=== PATIENT | female | born 1945 | race Caucasian/White ===

== ENCOUNTER 2018-03-15 13:23 | Emergency (ER) | payer MEDICARE, BC ==
[2018-03-15 13:39] VITALS: RESP 16
[2018-03-15] MEDS ORDERED: SODIUM CHLORIDE 0.9% 500 ML IV STA (14:15)
[2018-03-15 15:02] LABS: Basophils # (A) 0.1 k/uL (0-0.2); Basophils % (A) 1 %; Eosinophils # (A) 0.2 k/uL (0-0.7); Eosinophils % (A) 1 %; HCT 46.9 % (34.0-46.0); Lymphocytes # (A) 1.3 k/uL (1.0-4.8); Lymphocytes % (A) 11 %; MCH 30.2 pg (25.0-35.0); MCHC 34.1 g/dL (31.0-37.0); MCV 88.7 fL (80.0-100.0); Mean Platelet Volume 7.6; Monocytes # (A) 0.5 k/uL (0-1.0); Monocytes % (A) 5 %; Neutrophils # (A) 9.8 k/uL (1.3-7.7); Neutrophils % (A) 81 %; Platelet Count 294 k/uL (150-450); RBC 5.29 m/uL (3.80-5.40); RDW 12.1 % (11.5-15.5); WBC 12.1 k/uL (3.8-10.6)
[2018-03-15 15:04] LABS: Appearance,Urine Clear (Clear); Bacteria,Urine Rare /hpf; Bilirubin,Urine Negative (Negative); Blood,Urine Small (Negative); Color,Urine Yellow; Glucose,Urine (UA) 2+ (Negative); Hyaline Casts,Urine 4 /lpf (0-2); Ketones,Urine Negative (Negative); Leukocyte Esterase,Urine Negative (Negative); Mucus,Urine Rare /hpf; Nitrite,Urine Negative (Negative); Protein,Urine 3+ (Negative); RBC,Urine 2 /hpf (0-5); Specific Gravity,Urine 1.037 (1.001-1.035); Squamous Epithelial Cell,Urine 1 /hpf (0-4); WBC,Urine 2 /hpf (0-5)
[2018-03-15 15:12] LABS: ALT 27 U/L (9-52); AST 46 U/L (14-36); Alkaline Phosphatase 49 U/L (38-126); Anion Gap 15 mmol/L; Blood Urea Nitrogen 17 mg/dL (7-17); Calcium 9.8 mg/dL (8.4-10.2); Carbon Dioxide 26 mmol/L (22-30); Chloride 88 mmol/L (98-107); Glucose 134 mg/dL (74-99); Magnesium 1.5 mg/dL (1.6-2.3); Phosphorus 3.8 mg/dL (2.5-4.5); Potassium 4.9 mmol/L (3.5-5.1); Sodium 129 mmol/L (137-145); Total Bilirubin 1.2 mg/dL (0.2-1.3)
[2018-03-15 15:21] LABS: Creatine Kinase 307 U/L (30-135)
[2018-03-15] MEDS ORDERED: MORPHINE SULFATE 4 MG/ML SYRINGE IVP STA (15:22)
[2018-03-15 15:34] LABS: Troponin I <0.012 ng/mL (0.000-0.034)
[2018-03-15 15:35] LABS: Creatine Kinase MB 4.1 ng/mL (0.0-2.4)
--- NOTE | 2018-03-15 15:37 | ED ---
General Adult HPI - General Chief complaint: Fall Stated complaint: Fall Time Seen by Provider: 03/15/18 13:29 Source: patient, RN notes reviewed, old records reviewed Mode of arrival: EMS Limitations: no limitations - History of Present Illness Initial comments: This is a 72-year-old female the ER for evaluation. Patient presented ER for evaluation status post fall. 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 No known or unsure loss of consciousness. Patient has mild facial pain, no other complaints - Related Data Home Medications Medication Instructions Recorded Confirmed Acetaminophen Tab [Tylenol Tab] 650 mg PO Q4H PRN 03/15/18 03/15/18 DULoxetine HCL [Cymbalta] 20 mg PO DAILY 03/15/18 03/15/18 Metoprolol Tartrate [Lopressor] 50 mg PO BID 03/15/18 03/15/18 Allergies Allergy/AdvReac Type Severity Reaction Status Date / Time dicyclomine [From Bentyl] Allergy Unknown Verified 03/15/18 13:47 grass pollen Allergy Unknown Verified 03/15/18 13:47 Iodinated Contrast- Oral and Allergy Unknown Verified 03/15/18 13:47 IV Dye mold Allergy Unknown Verified 03/15/18 13:47 oxycodone Allergy Unknown Verified 03/15/18 13:47 povidone-iodine Allergy Unknown Verified 03/15/18 13:47 [From Betadine] propoxyphene Allergy Unknown Verified 03/15/18 13:47 [From Darvocet-N] soap [From Betadine] Allergy Unknown Verified 03/15/18 13:47 Review of Systems ROS Statement: Those systems with pertinent positive or pertinent negative responses have been documented in the HPI. ROS Other: All systems not noted in ROS Statement are negative. Past Medical History Past Medical History: Fibromyalgia, Hypertension, Rheumatoid Arthritis (RA) Additional Past Medical History / Comment(s): GOUT History of Any Multi-Drug Resistant Organisms: None Reported Past Surgical History: Appendectomy, Section, Orthopedic Surgery, Tonsillectomy, Tubal Ligation Past Psychological History: Anxiety, Depression, Panic Disorder Smoking Status: Never smoker Past Alcohol Use History: Daily Past Drug Use History: None Reported General Exam Limitations: no limitations General appearance: alert, in no apparent distress Head exam: Present: normocephalic, normal inspection. Absent: atraumatic ( Nasal deformity) Eye exam: Present: normal appearance, PERRL, EOMI. Absent: scleral icterus, conjunctival injection, periorbital swelling ENT exam: Present: normal exam, mucous membranes moist Neck exam: Present: normal inspection. Absent: tenderness, meningismus, lymphadenopathy Respiratory exam: Present: normal lung sounds bilaterally. Absent: respiratory distress, wheezes, rales, rhonchi, stridor Cardiovascular Exam: Present: regular rate, normal rhythm, normal heart sounds. Absent: systolic murmur, diastolic murmur, rubs, gallop, clicks GI/Abdominal exam: Present: soft, normal bowel sounds. Absent: distended, tenderness, guarding, rebound, rigid Extremities exam: Present: normal inspection, full ROM, normal capillary refill. Absent: tenderness, pedal edema, joint swelling, calf tenderness Back exam: Present: normal inspection Neurological exam: Present: alert, oriented X3, CN II-XII intact Psychiatric exam: Present: normal affect, normal mood Skin exam: Present: warm, dry, intact, normal color. Absent: rash Course Vital Signs 03/15/18 03/15/18 13:31 16:35 Temperature 99.4 F Pulse Rate 66 74 Respiratory 16 16 Rate Blood Pressure 172/77 168/77 O2 Sat by Pulse 98 97 Oximetry - Reevaluation(s) Reevaluation #1: 03/15/18 15:36 Patient has pain control at this time EKG Findings - EKG Comments: EKG Findings:: EKG shows normal sinus rhythm rate of 63, [place] 138, QRS 84, QTc 437 Medical Decision Making - Medical Decision Making 72 female the ER status post mechanical fall, computed tomography scan is negative for fractures or injury, mildly low sodium, patient given fluid bolus here in the ER. Encouraged increased diet. can be discharged home - Lab Data Result diagrams: 03/15/18 14:43 03/15/18 14:43 Lab Results 03/15/18 03/15/18 03/15/18 Range/Units 14:43 14:43 14:43 WBC 12.1 H (3.8-10.6) k/uL RBC 5.29 (3.80-5.40) m/uL Hgb 16.0 (11.4-16.0) gm/dL Hct 46.9 H (34.0-46.0) % MCV 88.7 (80.0-100.0) fL MCH 30.2 (25.0-35.0) pg MCHC 34.1 (31.0-37.0) g/dL RDW 12.1 (11.5-15.5) % Plt Count 294 (150-450) k/uL Neutrophils % 81 % Lymphocytes % 11 % Monocytes % 5 % Eosinophils % 1 % Basophils % 1 % Neutrophils # 9.8 H (1.3-7.7) k/uL Lymphocytes # 1.3 (1.0-4.8) k/uL Monocytes # 0.5 (0-1.0) k/uL Eosinophils # 0.2 (0-0.7) k/uL Basophils # 0.1 (0-0.2) k/uL PT (9.0-12.0) sec INR (<1.2) APTT (22.0-30.0) sec Sodium 129 L (137-145) mmol/L Potassium 4.9 (3.5-5.1) mmol/L Chloride 88 L (98-107) mmol/L Carbon Dioxide 26 (22-30) mmol/L Anion Gap 15 mmol/L BUN 17 (7-17) mg/dL Creatinine 0.67 (0.52-1.04) mg/dL Est GFR (CKD-EPI)AfAm >90 (>60 ml/min/1.73 sqM) Est GFR (CKD-EPI)NonAf 89 (>60 ml/min/1.73 sqM) Glucose 134 H (74-99) mg/dL Calcium 9.8 (8.4-10.2) mg/dL Phosphorus 3.8 (2.5-4.5) mg/dL Magnesium 1.5 L (1.6-2.3) mg/dL Total Bilirubin 1.2 (0.2-1.3) mg/dL AST 46 H (14-36) U/L ALT 27 (9-52) U/L Alkaline Phosphatase 49 (38-126) U/L Total Creatine Kinase 307 H (30-135) U/L CK-MB (CK-2) 4.1 H* (0.0-2.4) ng/mL CK-MB (CK-2) Rel Index 1.3 Troponin I <0.012 (0.000-0.034) ng/mL Total Protein 8.0 (6.3-8.2) g/dL Albumin 5.0 (3.5-5.0) g/dL Urine Color Urine Appearance (Clear) Urine pH (5.0-8.0) Ur Specific [place] (1.001-1.035) Urine Protein (Negative) Urine Glucose (UA) (Negative) Urine Ketones (Negative) Urine Blood (Negative) Urine Nitrite (Negative) Urine Bilirubin (Negative) Urine Urobilinogen (<2.0) mg/dL Ur Leukocyte Esterase (Negative) Urine RBC (0-5) /hpf Urine WBC (0-5) /hpf Ur Squamous Epith Cells (0-4) /hpf Urine Bacteria (None) /hpf Hyaline Casts (0-2) /lpf Urine Mucus (None) /hpf 03/15/18 03/15/18 Range/Units 14:43 14:43 WBC (3.8-10.6) k/uL RBC (3.80-5.40) m/uL Hgb (11.4-16.0) gm/dL Hct (34.0-46.0) % MCV (80.0-100.0) fL MCH (25.0-35.0) pg MCHC (31.0-37.0) g/dL RDW (11.5-15.5) % Plt Count (150-450) k/uL Neutrophils % % Lymphocytes % % Monocytes % % Eosinophils % % Basophils % % Neutrophils # (1.3-7.7) k/uL Lymphocytes # (1.0-4.8) k/uL Monocytes # (0-1.0) k/uL Eosinophils # (0-0.7) k/uL Basophils # (0-0.2) k/uL PT 10.5 (9.0-12.0) sec INR 1.1 (<1.2) APTT 22.8 (22.0-30.0) sec Sodium (137-145) mmol/L Potassium (3.5-5.1) mmol/L Chloride (98-107) mmol/L Carbon Dioxide (22-30) mmol/L Anion Gap mmol/L BUN (7-17) mg/dL Creatinine (0.52-1.04) mg/dL Est GFR (CKD-EPI)AfAm (>60 ml/min/1.73 sqM) Est GFR (CKD-EPI)NonAf (>60 ml/min/1.73 sqM) Glucose (74-99) mg/dL Calcium (8.4-10.2) mg/dL Phosphorus (2.5-4.5) mg/dL Magnesium (1.6-2.3) mg/dL Total Bilirubin (0.2-1.3) mg/dL AST (14-36) U/L ALT (9-52) U/L Alkaline Phosphatase (38-126) U/L Total Creatine Kinase (30-135) U/L CK-MB (CK-2) (0.0-2.4) ng/mL CK-MB (CK-2) Rel Index Troponin I (0.000-0.034) ng/mL Total Protein (6.3-8.2) g/dL Albumin (3.5-5.0) g/dL Urine Color Yellow Urine Appearance Clear (Clear) Urine pH 6.0 (5.0-8.0) Ur Specific [place] 1.037 H (1.001-1.035) Urine Protein 3+ H (Negative) Urine Glucose (UA) 2+ H (Negative) Urine Ketones Negative (Negative) Urine Blood Small H (Negative) Urine Nitrite Negative (Negative) Urine Bilirubin Negative (Negative) Urine Urobilinogen 2.0 (<2.0) mg/dL Ur Leukocyte Esterase Negative (Negative) Urine RBC 2 (0-5) /hpf Urine WBC 2 (0-5) /hpf Ur Squamous Epith Cells 1 (0-4) /hpf Urine Bacteria Rare H (None) /hpf Hyaline Casts 4 H (0-2) /lpf Urine Mucus Rare H (None) /hpf - Radiology Data Radiology results: report reviewed (CT brain C-spine negative for acute disease) , image reviewed Disposition Clinical Impression: Fall, Head injuries Disposition: HOME SELF-CARE Condition: Good Instructions: Fall Prevention for Older Adults (ED) Is patient prescribed a controlled substance at d/c from ED?: No Referrals: Leobardo Heart MD [Primary Care Provider] - 1-2 days
--- NOTE | 2018-03-15 15:41 | CT ---
EXAMINATION TYPE: CT brain cspine wo con, CT facial bones wo con DATE OF EXAM: 03/15/2018 COMPARISON: NONE HISTORY: Fall, trauma injury with headache, facial pain, and neck pain. CT DLP: 1891 (accession [id number]), 543 (accession [id number]) mGycm. Automated Exposure Control for Dos e Reduction was Utilized. TECHNIQUE: CT scan of the head, patient bones, and cervical spine are all performed without contrast. FINDINGS: There is no acute intracranial hemorrhage or midline shift identified. There is ventricul ar and sulcal prominence consistent with diffuse cerebral atrophy. There is low-attenuation in the pe riventricular white matter. Hyperostosis frontalis is present. The calvarium is intact. Nasal bones and bridge are intact. Orbital floors and beard are intact. The globes are intact bilater ally. Intraconal fat is preserved bilaterally. The zygomatic arches are intact bilaterally. Temporoma ndibular joints are maintained. The pterygoid plates are intact. Visualized paranasal sinuses are neftali ar. Cervical spine is visualized in its entirety from C1 through upper thoracic levels and demonstrates s traightened alignment without evidence of acute fracture or dislocation. Prevertebral soft tissue ap pears within normal limits. The C1-C2 articulation is within normal limits on the coronal images. V ertebral body heights are maintained. There is moderate disc space narrowing and mild to moderate spu rring C5-C6 and C6-C7 level. Spinal canal is grossly preserved. Review of axial images shows multilev el uncovertebral facet degenerative changes, this contributes to moderate left and mild right-sided n eural foraminal narrowing C3-C4 level, moderate to advanced bilateral neural foraminal narrowing C4-C 5 level and mild to moderate left-sided neural foraminal narrowing C5-C6 level. There is 3.3 cm hypoe choic nodule lower pole right thyroid coronal image 20 that warrants follow-up. Lung apices are clear . IMPRESSION: 1. There is no acute fracture or dislocation evident in the cervical spine. Incidental 3.3 cm right t hyroid nodule. Thyroid ultrasound follow-up advised to further evaluate and characterize. This likely will need sampling if this is not known stable finding. 2. No acute intracranial hemorrhage or midline shift is seen. 3. No acute facial bone fracture or dislocation is evident.
[2018-03-15 15:49] LABS: INR 1.1 (<1.2); Partial Thromboplastin Time 22.8 sec (22.0-30.0); Prothrombin Time 10.5 sec (9.0-12.0)
--- NOTE | 2018-03-15 16:47 | XR ---
EXAMINATION TYPE: XR chest 2V DATE OF EXAM: 03/15/2018 COMPARISON: NONE HISTORY: Fall today with weakness. TECHNIQUE: Frontal and lateral views of the chest are obtained. FINDINGS: There is elevation and eventration anterior aspect right hemidiaphragm. There is no focal a ir space opacity, pleural effusion, or pneumothorax seen. The cardiac silhouette size is within norm al limits. Irregular sclerotic lesion left proximal humerus likely reflects bone infarct but is incom pletely imaged. IMPRESSION: No acute cardiopulmonary process.
[2018-03-15 17:34] VITALS: BP 189/83; PULSE 72; TEMP 99.1
== END 2018-03-15 18:30 | disposition home or self-care (01) ==
LOC: EC 13:23
DX: E87.1 Hypo-osmolality and hyponatremia (principal); S09.90XA Unspecified injury of head, initial encounter; J34.89 Other specified disorders of nose and nasal sinuses; I10 Essential (primary) hypertension; F32.9 Major depressive disorder, single episode, unspecified; F41.0 Panic disorder [episodic paroxysmal anxiety]; Z79.899 Other long term (current) drug therapy; Z88.5 Allergy status to narcotic agent; Z88.8 Allergy status to other drugs, medicaments and biological substances; Z91.041 Radiographic dye allergy status; Z91.048 Other nonmedicinal substance allergy status; V00.811A Fall from moving wheelchair (powered), initial encounter; Y93.89 Activity, other specified; Y92.009 Unspecified place in unspecified non-institutional (private) residence as the place of occurrence of the external cause
CPT/HCPCS: 36415; 93005; 80053; 82550; 82553; 83735; 84100; 84484; 85025; 85610; 85730; 81001; 71046; 72125; 70486; 70450; 99285; 96374; 96361 ×3; J2270

== ENCOUNTER 2020-02-07 10:55 | Emergency (ER) | payer MEDICARE, BC ==
[2020-02-07 11:00] LABS: Glucose,Whole Blood 143 mg/dL (75-99)
[2020-02-07] MEDS ORDERED: SODIUM CHLORIDE 0.9% 1,000 ML IV ONE (11:12)
--- NOTE | 2020-02-07 11:16 | ED ---
General Adult HPI - General Chief complaint: Altered Mental Status Stated complaint: Confusion Time Seen by Provider: 02/07/20 11:00 Source: EMS Mode of arrival: EMS Limitations: no limitations - History of Present Illness Initial comments: Dictation was produced using [employer] dictation software. please excuse any grammatical, word or spelling errors. This patient was cared for during a federal and state declared state of emergency secondary to Covid 19 Chief Complaint: 74-year-old female brought in by EMS for confusion History of Present Illness: 4-year-old female she is brought in for confusion. Patient states that over the last 48 hours she's been having difficulty concentrating. Patient states that she has with her cat yesterday morning and wanted to go and eat however she reports that she noted that she forgot how to d o it. She lives at home with her son. Her son was on called EMS. According to EMS patient was alert and oriented 4. Patient denies any numbness tingling or paresthesias to the extremities. She denies any weakness of the extremities. No constitutional symptoms. Denies any pain complaints. The ROS documented in this emergency department record has been reviewed and confirmed by me. Those systems with pertinent positive or negative responses have been documented in the HPI. All other systems are other negative and/or noncontributory. PHYSICAL EXAM: General Impression: Alert and oriented x4/4, not in acute distress HEENT: Normocephalic atraumatic, extra-ocular movements intact, pupils equal and reactive to light bilaterally, dry mucous membranes Cardiovascular: Heart regular rate and rhythm, S1&S2 audible, no murmurs, rubs or gallops Chest: Lungs clear to auscultation bilaterally, no rhonchi, no wheeze, no rales Abdomen: Bowel sounds present, abdomen soft, non-tender, non-distended, no organomegaly Musculoskeletal: Pulses present and equal in all extremities, no peripheral edema Motor: no focal deficits noted Neurological: CN II-XII grossly intact, no focal motor or sensory deficits noted, no ataxia, NIH of 0, no facial asymmetry Skin: Intact with no visualized rashes Psych: Normal affect and mood ED course: 74-year-old female presents with confusion. Patient does not have any symptoms or findings to suggest cerebrovascular accident. Her NIH is 0. As upon arrival are within acceptable limits. Patient does not have any localizing symptoms. Physical examination is benign except for some signs of dehydration. Medications reviewed. Patient is on TCA, beta ben and antidepressant Laboratory evaluation obtained. Mild leukocytosis of 11.9. Cardiac panel unremarkable. Metabolic panel is negative. Cardiac enzymes negative. No hyperammonia. Urinalysis is negative. Rapid urine drug screen is positive for TCAs which is part of her usual medications. Chest x-ray is nonacute. Computed tomography scan of the brain shows evidence of remote lacunar infarct in the right frontal lobe, ventricular atrophy and interval left posterior parietal infarct but has not acute but progressed since previous. At this point no concern for TIA or CVA given that patient has NIH of 0. Patient's given an aspirin. This is likely secondary to chronic findings seen on computed tomography scan of the brain. Nonetheless given CT findings patient should be on CVA prophylactic medications. An attempt was made to contact patient's primary care physician Dr. Heart over he was unavailable. Discussed patient case with Dr. Toledo was road conductor for the group he agrees with discharge. He recommend patient be started on 80 mg Lipitor daily and aspirin 325 daily. Ema chapman underwent ambulatory trial and has no findings of significant ataxia. Son finally at bedside and reports that patient does appear improved. He is agreeable to disposition. Patient is instructed to follow-up with her PCP Dr. Heart on Sunday per recommendation by Dr. Toledo. EKG interpretation: Ventricular rate 66, normal sinus rhythm,. Interval 102, QRS 94, QTC 425. No CA prolongation, no QTC prolongation, no ST or T-wave changes noted. EKG compared to 03/15/2018 showing no changes. Overall, this EKG is unremarkable - Related Data Home Medications Medication Instructions Recorded Confirmed DULoxetine HCL [Cymbalta] 20 mg PO DAILY 03/15/18 02/07/20 Amitriptyline HCl [Elavil] 25 mg PO HS 02/07/20 02/07/20 amLODIPine [Norvasc] 10 mg PO DAILY 02/07/20 02/07/20 metFORMIN HCL [Glucophage] 500 mg PO BID 02/07/20 02/07/20 Previous Rx's Medication Instructions Recorded Aspirin 325 mg PO DAILY #12 tab 02/07/20 Atorvastatin [Lipitor] 80 mg PO DAILY #12 tab 02/07/20 Allergies Allergy/AdvReac Type Severity Reaction Status Date / Time dicyclomine [From Bentyl] Allergy Unknown Verified 02/07/20 11:33 grass pollen Allergy Unknown Verified 02/07/20 11:33 Iodinated Contrast Media Allergy Unknown Verified 02/07/20 11:33 [Iodinated Contrast- Oral and IV Dye] mold Allergy Unknown Verified 02/07/20 11:33 oxycodone Allergy Unknown Verified 02/07/20 11:33 povidone-iodine Allergy Unknown Verified 02/07/20 11:33 [From Betadine] propoxyphene Allergy Unknown Verified 02/07/20 11:33 [From Darvocet-N] soap [From Betadine] Allergy Unknown Verified 02/07/20 11:33 Review of Systems ROS Statement: Those systems with pertinent positive or pertinent negative responses have been documented in the HPI. ROS Other: All systems not noted in ROS Statement are negative. Past Medical History Past Medical History: Fibromyalgia, Hypertension, Rheumatoid Arthritis (RA) Additional Past Medical History / Comment(s): GOUT History of Any Multi-Drug Resistant Organisms: None Reported Past Surgical History: Appendectomy, Section, Orthopedic Surgery, Tonsillectomy, Tubal Ligation Past Psychological History: Anxiety, Depression, Panic Disorder Smoking Status: Never smoker Past Alcohol Use History: Daily Past Drug Use History: None Reported General Exam Limitations: no limitations Course Vital Signs 02/07/20 02/07/20 02/07/20 11:03 12:05 12:25 Temperature 98.0 F 97.8 F Pulse Rate 64 67 65 Respiratory 16 16 20 Rate Blood Pressure 160/80 125/74 154/78 O2 Sat by Pulse 98 98 98 Oximetry Medical Decision Making - Lab Data Result diagrams: 02/07/20 11:05 02/07/20 11:05 Lab Results 02/07/20 02/07/20 02/07/20 Range/Units 10:58 11:05 11:05 WBC 11.9 H (3.8-10.6) k/uL RBC 4.51 (3.80-5.40) m/uL Hgb 13.3 (11.4-16.0) gm/dL Hct 41.1 (34.0-46.0) % MCV 91.3 (80.0-100.0) fL MCH 29.5 (25.0-35.0) pg MCHC 32.3 (31.0-37.0) g/dL RDW 12.4 (11.5-15.5) % Plt Count 248 (150-450) k/uL Neutrophils % 80 % Lymphocytes % 11 % Monocytes % 5 % Eosinophils % 2 % Basophils % 1 % Neutrophils # 9.5 H (1.3-7.7) k/uL Lymphocytes # 1.3 (1.0-4.8) k/uL Monocytes # 0.6 (0-1.0) k/uL Eosinophils # 0.2 (0-0.7) k/uL Basophils # 0.1 (0-0.2) k/uL PT 9.9 (9.0-12.0) sec INR 0.9 (<1.2) APTT 25.1 (22.0-30.0) sec Sodium (137-145) mmol/L Potassium (3.5-5.1) mmol/L Chloride (98-107) mmol/L Carbon Dioxide (22-30) mmol/L Anion Gap mmol/L BUN (7-17) mg/dL Creatinine (0.52-1.04) mg/dL Est GFR (CKD-EPI)AfAm (>60 ml/min/1.73 sqM) Est GFR (CKD-EPI)NonAf (>60 ml/min/1.73 sqM) Glucose (74-99) mg/dL POC Glucose (mg/dL) 143 H (75-99) mg/dL POC Glu Rn Oncology Clinical Domenica Ynu Calcium (8.4-10.2) mg/dL Total Bilirubin (0.2-1.3) mg/dL AST (14-36) U/L ALT (4-34) U/L Alkaline Phosphatase (38-126) U/L Ammonia (<30) umol/L Creatine Kinase (30-135) U/L Troponin I (0.000-0.034) ng/mL Total Protein (6.3-8.2) g/dL Albumin (3.5-5.0) g/dL Urine Color Urine Appearance (Clear) Urine pH (5.0-8.0) Ur Specific [place] (1.001-1.035) Urine Protein (Negative) Urine Glucose (UA) (Negative) Urine Ketones (Negative) Urine Blood (Negative) Urine Nitrite (Negative) Urine Bilirubin (Negative) Urine Urobilinogen (<2.0) mg/dL Ur Leukocyte Esterase (Negative) Urine RBC (0-5) /hpf Urine WBC (0-5) /hpf Ur Squamous Epith Cells (0-4) /hpf Urine Bacteria (None) /hpf Urine Opiates Screen (NotDetected) Ur Oxycodone Screen (NotDetected) Urine Methadone Screen (NotDetected) Ur Propoxyphene Screen (NotDetected) Ur Barbiturates Screen (NotDetected) U Tricyclic Antidepress (NotDetected) Ur Phencyclidine Scrn (NotDetected) Ur Amphetamines Screen (NotDetected) U Methamphetamines Scrn (NotDetected) U Benzodiazepines Scrn (NotDetected) Urine Cocaine Screen (NotDetected) U Marijuana (THC) Screen (NotDetected) 02/07/20 02/07/20 02/07/20 Range/Units 11:05 11:05 11:05 WBC (3.8-10.6) k/uL RBC (3.80-5.40) m/uL Hgb (11.4-16.0) gm/dL Hct (34.0-46.0) % MCV (80.0-100.0) fL MCH (25.0-35.0) pg MCHC (31.0-37.0) g/dL RDW (11.5-15.5) % Plt Count (150-450) k/uL Neutrophils % % Lymphocytes % % Monocytes % % Eosinophils % % Basophils % % Neutrophils # (1.3-7.7) k/uL Lymphocytes # (1.0-4.8) k/uL Monocytes # (0-1.0) k/uL Eosinophils # (0-0.7) k/uL Basophils # (0-0.2) k/uL PT (9.0-12.0) sec INR (<1.2) APTT (22.0-30.0) sec Sodium 134 L (137-145) mmol/L Potassium 4.2 (3.5-5.1) mmol/L Chloride 100 (98-107) mmol/L Carbon Dioxide 23 (22-30) mmol/L Anion Gap 11 mmol/L BUN 15 (7-17) mg/dL Creatinine 0.62 (0.52-1.04) mg/dL Est GFR (CKD-EPI)AfAm >90 (>60 ml/min/1.73 sqM) Est GFR (CKD-EPI)NonAf 90 (>60 ml/min/1.73 sqM) Glucose 165 H (74-99) mg/dL POC Glucose (mg/dL) (75-99) mg/dL POC Glu Rn Oncology Clinical ID Calcium 8.8 (8.4-10.2) mg/dL Total Bilirubin 0.6 (0.2-1.3) mg/dL AST 24 (14-36) U/L ALT 17 (4-34) U/L Alkaline Phosphatase 58 (38-126) U/L Ammonia <9 (<30) umol/L Creatine Kinase 80 (30-135) U/L Troponin I <0.012 (0.000-0.034) ng/mL Total Protein 6.8 (6.3-8.2) g/dL Albumin 4.0 (3.5-5.0) g/dL Urine Color Urine Appearance (Clear) Urine pH (5.0-8.0) Ur Specific [place] (1.001-1.035) Urine Protein (Negative) Urine Glucose (UA) (Negative) Urine Ketones (Negative) Urine Blood (Negative) Urine Nitrite (Negative) Urine Bilirubin (Negative) Urine Urobilinogen (<2.0) mg/dL Ur Leukocyte Esterase (Negative) Urine RBC (0-5) /hpf Urine WBC (0-5) /hpf Ur Squamous Epith Cells (0-4) /hpf Urine Bacteria (None) /hpf Urine Opiates Screen (NotDetected) Ur Oxycodone Screen (NotDetected) Urine Methadone Screen (NotDetected) Ur Propoxyphene Screen (NotDetected) Ur Barbiturates Screen (NotDetected) U Tricyclic Antidepress (NotDetected) Ur Phencyclidine Scrn (NotDetected) Ur Amphetamines Screen (NotDetected) U Methamphetamines Scrn (NotDetected) U Benzodiazepines Scrn (NotDetected) Urine Cocaine Screen (NotDetected) U Marijuana (THC) Screen (NotDetected) 02/07/20 Range/Units 11:10 WBC (3.8-10.6) k/uL RBC (3.80-5.40) m/uL Hgb (11.4-16.0) gm/dL Hct (34.0-46.0) % MCV (80.0-100.0) fL MCH (25.0-35.0) pg MCHC (31.0-37.0) g/dL RDW (11.5-15.5) % Plt Count (150-450) k/uL Neutrophils % % Lymphocytes % % Monocytes % % Eosinophils % % Basophils % % Neutrophils # (1.3-7.7) k/uL Lymphocytes # (1.0-4.8) k/uL Monocytes # (0-1.0) k/uL Eosinophils # (0-0.7) k/uL Basophils # (0-0.2) k/uL PT (9.0-12.0) sec INR (<1.2) APTT (22.0-30.0) sec Sodium (137-145) mmol/L Potassium (3.5-5.1) mmol/L Chloride (98-107) mmol/L Carbon Dioxide (22-30) mmol/L Anion Gap mmol/L BUN (7-17) mg/dL Creatinine (0.52-1.04) mg/dL Est GFR (CKD-EPI)AfAm (>60 ml/min/1.73 sqM) Est GFR (CKD-EPI)NonAf (>60 ml/min/1.73 sqM) Glucose (74-99) mg/dL POC Glucose (mg/dL) (75-99) mg/dL POC Glu Rn Oncology Clinical ID Calcium (8.4-10.2) mg/dL Total Bilirubin (0.2-1.3) mg/dL AST (14-36) U/L ALT (4-34) U/L Alkaline Phosphatase (38-126) U/L Ammonia (<30) umol/L Creatine Kinase (30-135) U/L Troponin I (0.000-0.034) ng/mL Total Protein (6.3-8.2) g/dL Albumin (3.5-5.0) g/dL Urine Color Light Yellow Urine Appearance Clear (Clear) Urine pH 6.5 (5.0-8.0) Ur Specific [place] 1.011 (1.001-1.035) Urine Protein 2+ H (Negative) Urine Glucose (UA) Negative (Negative) Urine Ketones Negative (Negative) Urine Blood Negative (Negative) Urine Nitrite Negative (Negative) Urine Bilirubin Negative (Negative) Urine Urobilinogen <2.0 (<2.0) mg/dL Ur Leukocyte Esterase Negative (Negative) Urine RBC 2 (0-5) /hpf Urine WBC 1 (0-5) /hpf Ur Squamous Epith Cells <1 (0-4) /hpf Urine Bacteria Rare H (None) /hpf Urine Opiates Screen Not Detected (NotDetected) Ur Oxycodone Screen Not Detected (NotDetected) Urine Methadone Screen Not Detected (NotDetected) Ur Propoxyphene Screen Not Detected (NotDetected) Ur Barbiturates Screen Not Detected (NotDetected) U Tricyclic Antidepress Detected H (NotDetected) Ur Phencyclidine Scrn Not Detected (NotDetected) Ur Amphetamines Screen Not Detected (NotDetected) U Methamphetamines Scrn Not Detected (NotDetected) U Benzodiazepines Scrn Not Detected (NotDetected) Urine Cocaine Screen Not Detected (NotDetected) U Marijuana (THC) Screen Not Detected (NotDetected) Disposition Clinical Impression: Confusion Disposition: HOME SELF-CARE Condition: Good Instructions (If sedation given, give patient instructions): Altered Mental Status (ED) Additional Instructions: Please seek medical attention if you develop any focal neurologic findings including shortly weakness, ataxia, worsening confusion or numbness to the extremities. Otherwise please follow up with Dr. Heart on Sunday. Your prescribed aspirin and Lipitor. These medications are for stroke prevention. These medications were sent to your preferred pharmacy. Prescriptions: Aspirin 325 mg PO DAILY #12 tab Atorvastatin [Lipitor] 80 mg PO DAILY #12 tab Is patient prescribed a controlled substance at d/c from ED?: No Referrals: Leobardo Heart MD [Primary Care Provider] - 1-2 days Time of Disposition: 12:40
[2020-02-07 11:31] LABS: Basophils # (A) 0.1 k/uL (0-0.2); Basophils % (A) 1 %; Eosinophils # (A) 0.2 k/uL (0-0.7); Eosinophils % (A) 2 %; HCT 41.1 % (34.0-46.0); HGB 13.3 gm/dL (11.4-16.0); Lymphocytes # (A) 1.3 k/uL (1.0-4.8); Lymphocytes % (A) 11 %; MCH 29.5 pg (25.0-35.0); MCHC 32.3 g/dL (31.0-37.0); MCV 91.3 fL (80.0-100.0); Monocytes # (A) 0.6 k/uL (0-1.0); Monocytes % (A) 5 %; Neutrophils # (A) 9.5 k/uL (1.3-7.7); Neutrophils % (A) 80 %; Platelet Count 248 k/uL (150-450); RBC 4.51 m/uL (3.80-5.40); RDW 12.4 % (11.5-15.5); WBC 11.9 k/uL (3.8-10.6)
[2020-02-07 11:33] LABS: INR 0.9 (<1.2); Partial Thromboplastin Time 25.1 sec (22.0-30.0); Prothrombin Time 9.9 sec (9.0-12.0)
[2020-02-07 11:34] LABS: Appearance,Urine Clear (Clear); Bacteria,Urine Rare /hpf; Bilirubin,Urine Negative (Negative); Blood,Urine Negative (Negative); Color,Urine Light Yellow; Glucose,Urine (UA) Negative (Negative); Ketones,Urine Negative (Negative); Leukocyte Esterase,Urine Negative (Negative); Nitrite,Urine Negative (Negative); PH, Urine 6.5 (5.0-8.0); Protein,Urine 2+ (Negative); RBC,Urine 2 /hpf (0-5); Specific Gravity,Urine 1.011 (1.001-1.035); Squamous Epithelial Cell,Urine <1 /hpf (0-4); Urobilinogen,Urine <2.0 mg/dL (<2.0); WBC,Urine 1 /hpf (0-5)
[2020-02-07 11:34] LABS: ALT 17 U/L (4-34); AST 24 U/L (14-36); African American GFR (CKD) >90 (>60 ml/min/1.73 sqM); Alkaline Phosphatase 58 U/L (38-126); Anion Gap 11 mmol/L; Blood Urea Nitrogen 15 mg/dL (7-17); Calcium 8.8 mg/dL (8.4-10.2); Carbon Dioxide 23 mmol/L (22-30); Chloride 100 mmol/L (98-107); Creatine Kinase 80 U/L (30-135); Glucose 165 mg/dL (74-99); Non-African American GFR(CKD) 90 (>60 ml/min/1.73 sqM); Potassium 4.2 mmol/L (3.5-5.1); Sodium 134 mmol/L (137-145); Total Bilirubin 0.6 mg/dL (0.2-1.3); Total Protein 6.8 g/dL (6.3-8.2)
[2020-02-07 11:39] LABS: Amphetamine Screen,Urine Not Detected (NotDetected); Barbiturate Screen,Urine Not Detected (NotDetected); Benzodiazepines Screen,Urine Not Detected (NotDetected); Cocaine Screen,Urine Not Detected (NotDetected); Methadone Screen, Urine Not Detected (NotDetected); Opiate Screen,Urine Not Detected (NotDetected); Oxycodone Screen, Urine Not Detected (NotDetected); Phencyclidine Screen,Urine Not Detected (NotDetected); Tricyclic Antidepressant,Urine Detected (NotDetected); Urn Cannabinoid Scrn Not Detected (NotDetected)
--- NOTE | 2020-02-07 11:44 | CT ---
EXAMINATION TYPE: CT brain wo con DATE OF EXAM: 02/07/2020 COMPARISON: Previous study dated 03/15/2018 HISTORY: altered mental status CT DLP: 1099.4 mGycm Automated exposure control for dose reduction was used. FINDINGS: There has been interval development of a left posterior parietal infarct. This is not acute but is a change from previous. There are mild, generalized changes of sulcal prominence and ventriculomegaly, compatible with mild a trophic change. There is diffuse periventricular white matter lucency, compatible with chronic white matter ischemic change. There is evidence of a lacunar infarct in the right frontal lobe. There is no mass effect, midline shift or intracranial blood. Visualized portions of the paranasal sinuses and mastoids are clear. The bony calvarium is intact. IMPRESSION: 1. NO ACUTE INTRACRANIAL ABNORMALITY. 2. AT LEAST 2 PREVIOUS INFARCTS. 3. MILD DEGENERATIVE CHANGE.
--- NOTE | 2020-02-07 11:52 | XR ---
EXAMINATION TYPE: XR chest 2V DATE OF EXAM: 02/07/2020 HISTORY: altered mental status. REFERENCE: Previous study dated 03/15/2018. FINDINGS: There is chronic apparent elevation right hemidiaphragm. Heart size is within normal limits. The lungs are clear. Pleural spaces are clear. IMPRESSION: NO ACTIVE INTRATHORACIC DISEASE.
[2020-02-07] MEDS ORDERED: ASPIRIN 81 MG PO STA (11:55)
[2020-02-07 12:27] VITALS: PULSE 65; RESP 20
[2020-02-07 12:53] VITALS: BP 157/88; TEMP 97.6
== END 2020-02-07 12:52 | disposition home or self-care (01) ==
LOC: EC 10:55
DX: R41.0 Disorientation, unspecified (principal); I10 Essential (primary) hypertension; F32.9 Major depressive disorder, single episode, unspecified; F41.0 Panic disorder [episodic paroxysmal anxiety]; M06.9 Rheumatoid arthritis, unspecified; M10.9 Gout, unspecified; Z86.73 Personal history of transient ischemic attack (TIA), and cerebral infarction without residual deficits; Z79.84 Long term (current) use of oral hypoglycemic drugs; Z79.899 Other long term (current) drug therapy; Z88.1 Allergy status to other antibiotic agents; Z88.5 Allergy status to narcotic agent; Z91.018 Allergy to other foods; Z91.041 Radiographic dye allergy status; Z88.8 Allergy status to other drugs, medicaments and biological substances
CPT/HCPCS: 36415; 70450; 71046; 80053; 80306; 81001; 82140; 82550; 84484; 85025; 85610; 85730; 93005; 96360; 99285

== ENCOUNTER 2020-02-27 11:01 | Inpatient (IN) | payer MEDICARE, BC ==
[2020-02-27] MEDS ORDERED: SODIUM CHLORIDE 0.9% 1,000 ML IV ONE (11:35)
--- NOTE | 2020-02-27 11:40 | ED ---
General Adult HPI - General Chief complaint: Altered Mental Status Stated complaint: weakness/confusion Time Seen by Provider: 02/27/20 11:15 Source: patient, family, RN notes reviewed, old records reviewed Mode of arrival: wheelchair Limitations: altered mental status - History of Present Illness Initial comments: 74-year-old female presents for evaluation of progressive confusion and lack of appetite. Patient was in her usual state of health until approximately 3 weeks ago. She has had a progressive decline over this time. History is obtained p redominately from her son who is at bedside. He states that she is not eating or drinking well. She is having some paranoid thoughts. She was seen in the emergency department and had follow-up with her primary care physician within the past 3 weeks. MRI of the brain was ordered as well as neurology consultation. Secondary to the global pandemic these tests were not able to be scheduled and she has not seen neurology today. Patient's son states that her symptoms are worsened and she really is not eating at all. Patient herself has no complaints. Apparently there was an episode where she had stated she had chest pain. She currently does not have chest pain. No reported fever. No rep orted vomiting. - Related Data Home Medications Medication Instructions Recorded Confirmed DULoxetine HCL [Cymbalta] 20 mg PO DAILY 03/15/18 02/07/20 Amitriptyline HCl [Elavil] 25 mg PO HS 02/07/20 02/07/20 amLODIPine [Norvasc] 10 mg PO DAILY 02/07/20 02/07/20 metFORMIN HCL [Glucophage] 500 mg PO BID 02/07/20 02/07/20 Previous Rx's Medication Instructions Recorded Aspirin 325 mg PO DAILY #12 tab 02/07/20 Atorvastatin [Lipitor] 80 mg PO DAILY #12 tab 02/07/20 Allergies Allergy/AdvReac Type Severity Reaction Status Date / Time dicyclomine [From Bentyl] Allergy Unknown Verified 02/27/20 11:13 grass pollen Allergy Unknown Verified 02/27/20 11:13 Iodinated Contrast Media Allergy Unknown Verified 02/27/20 11:13 [Iodinated Contrast- Oral and IV Dye] mold Allergy Unknown Verified 02/27/20 11:13 oxycodone Allergy Unknown Verified 02/27/20 11:13 povidone-iodine Allergy Unknown Verified 02/27/20 11:13 [From Betadine] propoxyphene Allergy Unknown Verified 02/27/20 11:13 [From Darvocet-N] soap [From Betadine] Allergy Unknown Verified 02/27/20 11:13 Review of Systems ROS Statement: Those systems with pertinent positive or pertinent negative responses have been documented in the HPI. ROS Other: All systems not noted in ROS Statement are negative. Past Medical History Past Medical History: Fibromyalgia, Hypertension, Rheumatoid Arthritis (RA) Additional Past Medical History / Comment(s): GOUT, confusion History of Any Multi-Drug Resistant Organisms: None Reported Past Surgical History: Appendectomy, Section, Orthopedic Surgery, Tonsillectomy, Tubal Ligation Past Psychological History: Anxiety, Depression, Panic Disorder Smoking Status: Never smoker Past Alcohol Use History: None Reported Past Drug Use History: None Reported General Exam Limitations: altered mental status General appearance: alert, in no apparent distress Head exam: Present: atraumatic, normocephalic Eye exam: Present: normal appearance, PERRL ENT exam: Present: mucous membranes dry Neck exam: Present: normal inspection. Absent: tenderness, meningismus Respiratory exam: Present: normal lung sounds bilaterally. Absent: respiratory distress, wheezes Cardiovascular Exam: Present: regular rate, normal rhythm GI/Abdominal exam: Present: soft. Absent: distended, tenderness Neurological exam: Present: alert. Absent: oriented X3, motor sensory deficit (No focal findings) Psychiatric exam: Present: flat affect Skin exam: Present: warm, dry, intact. Absent: cyanosis, diaphoretic Course Vital Signs 02/27/20 02/27/20 02/27/20 11:10 12:18 13:30 Temperature 98.2 F Pulse Rate 66 62 60 Respiratory 18 18 16 Rate Blood Pressure 127/76 143/79 144/81 O2 Sat by Pulse 99 100 100 Oximetry 02/27/20 14:00 Temperature Pulse Rate 63 Respiratory 14 Rate Blood Pressure 158/85 O2 Sat by Pulse 100 Oximetry EKG Findings - EKG Comments: EKG Findings:: EKG: Normal sinus rhythm, rate of 62, MS interval 170, QRS duration 90, QTC 385, T-wave inversion in the inferior leads as well as the lateral precordial leads. No ST segment elevation. Medical Decision Making - Medical Decision Making 24-year-old female presenting with worsening confusion, poor appetite and dehydration over the past 3 weeks. On exam the patient does appear dehydrated. She does not have any focal neurologic findings. CT of brain is obtained which shows chronic ischemic changes and an old infarct with no acute findings. Chest x-ray negative for focal pneumonia. Laboratory studies reveal mild leukocytosis 11.6, no certain etiology is identified. She has normal electrolytes mildly elevated BUN consistent with dehydration. Urinalysis negative for infection. She's given IV hydration in the emergency department I did discuss possibility of inpatient versus outpatient evaluation with the patient's son who is not comfortable taking the patient home at this time. We will continue IV hydration and admitted to the hospital with neurology on consult. Case is discussed with Dr. Judge who will accept admission. - Lab Data Result diagrams: 02/27/20 12:05 02/27/20 12:05 Lab Results 02/27/20 02/27/20 02/27/20 Range/Units 12:05 12:05 12:05 WBC 11.6 H (3.8-10.6) k/uL RBC 4.61 (3.80-5.40) m/uL Hgb 13.7 (11.4-16.0) gm/dL Hct 42.1 (34.0-46.0) % MCV 91.3 (80.0-100.0) fL MCH 29.8 (25.0-35.0) pg MCHC 32.7 (31.0-37.0) g/dL RDW 12.1 (11.5-15.5) % Plt Count 288 (150-450) k/uL Neutrophils % 76 % Lymphocytes % 15 % Monocytes % 5 % Eosinophils % 1 % Basophils % 1 % Neutrophils # 8.9 H (1.3-7.7) k/uL Lymphocytes # 1.8 (1.0-4.8) k/uL Monocytes # 0.6 (0-1.0) k/uL Eosinophils # 0.1 (0-0.7) k/uL Basophils # 0.1 (0-0.2) k/uL PT 10.2 (9.0-12.0) sec INR 1.0 (<1.2) APTT 23.0 (22.0-30.0) sec Sodium 136 L (137-145) mmol/L Potassium 4.1 (3.5-5.1) mmol/L Chloride 103 (98-107) mmol/L Carbon Dioxide 24 (22-30) mmol/L Anion Gap 9 mmol/L BUN 27 H (7-17) mg/dL Creatinine 0.64 (0.52-1.04) mg/dL Est GFR (CKD-EPI)AfAm >90 (>60 ml/min/1.73 sqM) Est GFR (CKD-EPI)NonAf 89 (>60 ml/min/1.73 sqM) Glucose 194 H (74-99) mg/dL Calcium 9.5 (8.4-10.2) mg/dL Total Bilirubin 0.9 (0.2-1.3) mg/dL AST 39 H (14-36) U/L ALT 42 H (4-34) U/L Alkaline Phosphatase 60 (38-126) U/L Troponin I (0.000-0.034) ng/mL Total Protein 6.9 (6.3-8.2) g/dL Albumin 4.1 (3.5-5.0) g/dL Urine Color Urine Appearance (Clear) Urine pH (5.0-8.0) Ur Specific [place] (1.001-1.035) Urine Protein (Negative) Urine Glucose (UA) (Negative) Urine Ketones (Negative) Urine Blood (Negative) Urine Nitrite (Negative) Urine Bilirubin (Negative) Urine Urobilinogen (<2.0) mg/dL Ur Leukocyte Esterase (Negative) Urine RBC (0-5) /hpf Urine WBC (0-5) /hpf Ur Squamous Epith Cells (0-4) /hpf 02/27/20 02/27/20 Range/Units 12:05 14:05 WBC (3.8-10.6) k/uL RBC (3.80-5.40) m/uL Hgb (11.4-16.0) gm/dL Hct (34.0-46.0) % MCV (80.0-100.0) fL MCH (25.0-35.0) pg MCHC (31.0-37.0) g/dL RDW (11.5-15.5) % Plt Count (150-450) k/uL Neutrophils % % Lymphocytes % % Monocytes % % Eosinophils % % Basophils % % Neutrophils # (1.3-7.7) k/uL Lymphocytes # (1.0-4.8) k/uL Monocytes # (0-1.0) k/uL Eosinophils # (0-0.7) k/uL Basophils # (0-0.2) k/uL PT (9.0-12.0) sec INR (<1.2) APTT (22.0-30.0) sec Sodium (137-145) mmol/L Potassium (3.5-5.1) mmol/L Chloride (98-107) mmol/L Carbon Dioxide (22-30) mmol/L Anion Gap mmol/L BUN (7-17) mg/dL Creatinine (0.52-1.04) mg/dL Est GFR (CKD-EPI)AfAm (>60 ml/min/1.73 sqM) Est GFR (CKD-EPI)NonAf (>60 ml/min/1.73 sqM) Glucose (74-99) mg/dL Calcium (8.4-10.2) mg/dL Total Bilirubin (0.2-1.3) mg/dL AST (14-36) U/L ALT (4-34) U/L Alkaline Phosphatase (38-126) U/L Troponin I <0.012 (0.000-0.034) ng/mL Total Protein (6.3-8.2) g/dL Albumin (3.5-5.0) g/dL Urine Color Yellow Urine Appearance Clear (Clear) Urine pH 6.5 (5.0-8.0) Ur Specific [place] 1.019 (1.001-1.035) Urine Protein 2+ H (Negative) Urine Glucose (UA) Negative (Negative) Urine Ketones Negative (Negative) Urine Blood Negative (Negative) Urine Nitrite Negative (Negative) Urine Bilirubin Negative (Negative) Urine Urobilinogen <2.0 (<2.0) mg/dL Ur Leukocyte Esterase Trace H (Negative) Urine RBC <1 (0-5) /hpf Urine WBC 3 (0-5) /hpf Ur Squamous Epith Cells <1 (0-4) /hpf Disposition Clinical Impression: Altered mental status, Dehydration Disposition: ADMITTED IP TO THIS [facility] Condition: Stable Is patient prescribed a controlled substance at d/c from ED?: No Referrals: Leobardo Heart MD [Primary Care Provider] - 1-2 days Decision to Admit Reason: Admit from EC Decision Date: 02/27/20 Decision Time: 14:38
[2020-02-27 12:32] LABS: Basophils # (A) 0.1 k/uL (0-0.2); Basophils % (A) 1 %; Eosinophils # (A) 0.1 k/uL (0-0.7); Eosinophils % (A) 1 %; HCT 42.1 % (34.0-46.0); HGB 13.7 gm/dL (11.4-16.0); Lymphocytes # (A) 1.8 k/uL (1.0-4.8); Lymphocytes % (A) 15 %; MCH 29.8 pg (25.0-35.0); MCHC 32.7 g/dL (31.0-37.0); MCV 91.3 fL (80.0-100.0); Mean Platelet Volume 7.3; Monocytes # (A) 0.6 k/uL (0-1.0); Monocytes % (A) 5 %; Neutrophils # (A) 8.9 k/uL (1.3-7.7); Neutrophils % (A) 76 %; Platelet Count 288 k/uL (150-450); RBC 4.61 m/uL (3.80-5.40); RDW 12.1 % (11.5-15.5); WBC 11.6 k/uL (3.8-10.6)
[2020-02-27 12:38] LABS: ALT 42 U/L (4-34); AST 39 U/L (14-36); African American GFR (CKD) >90 (>60 ml/min/1.73 sqM); Albumin 4.1 g/dL (3.5-5.0); Alkaline Phosphatase 60 U/L (38-126); Anion Gap 9 mmol/L; Blood Urea Nitrogen 27 mg/dL (7-17); Calcium 9.5 mg/dL (8.4-10.2); Carbon Dioxide 24 mmol/L (22-30); Chloride 103 mmol/L (98-107); Glucose 194 mg/dL (74-99); Non-African American GFR(CKD) 89 (>60 ml/min/1.73 sqM); Potassium 4.1 mmol/L (3.5-5.1); Sodium 136 mmol/L (137-145); Total Bilirubin 0.9 mg/dL (0.2-1.3); Total Protein 6.9 g/dL (6.3-8.2)
[2020-02-27 12:55] LABS: Prothrombin Time 10.2 sec (9.0-12.0)
--- NOTE | 2020-02-27 12:55 | CT ---
EXAMINATION TYPE: CT brain wo con DATE OF EXAM: 02/27/2020 COMPARISON: 02/07/2020 INDICATION: altered mental status DLP: 1072.4 mGycm, Automated exposure control for dose reduction was used. CONTRAST: None CT of the brain is performed utilizing 3 mm thick sections through the posterior fossa and 3 mm thick sections through the remaining calvarium. Study is performed within 24 hours of arrival to the hosp [facility]. No abnormal hyperdensity is present to suggest an acute intracranial hemorrhage. No mass lesion is evident. Calcification is along the anterior falx present previously. No acute infarcts are evident. Periventricular white matter hypodensity is present, most likely on th e basis of chronic white matter ischemic change. This was present previously. There is an old left wa tershed infarct. Ventricles and sulci are appropriate for the patient age. Paranasal sinuses and mastoid air cells within the [id number] are clear. IMPRESSIONS: 1. Chronic white matter ischemic change. 2. Old left parieto-occipital watershed infarct
--- NOTE | 2020-02-27 12:59 | XR ---
EXAMINATION TYPE: XR chest 2V DATE OF EXAM: 02/27/2020 COMPARISON: 02/07/2020 INDICATION: Altered mental status TECHNIQUE: Frontal and lateral views of the chest are obtained. FINDINGS: The heart size is normal. The pulmonary vasculature is normal. The lungs are clear. There is chronic elevation of the right diaphragm. An old medullary infarct in the proximal left humerus is evident IMPRESSION: 1. No acute pulmonary process.
[2020-02-27 14:14] LABS: Appearance,Urine Clear (Clear); Bilirubin,Urine Negative (Negative); Blood,Urine Negative (Negative); Color,Urine Yellow; Glucose,Urine (UA) Negative (Negative); Ketones,Urine Negative (Negative); Leukocyte Esterase,Urine Trace (Negative); Nitrite,Urine Negative (Negative); PH, Urine 6.5 (5.0-8.0); Protein,Urine 2+ (Negative); RBC,Urine <1 /hpf (0-5); Specific Gravity,Urine 1.019 (1.001-1.035); Squamous Epithelial Cell,Urine <1 /hpf (0-4); Urobilinogen,Urine <2.0 mg/dL (<2.0); WBC,Urine 3 /hpf (0-5)
[2020-02-27] MEDS ORDERED: NALOXONE 0.4 MG/ML 1 ML VIAL IV PRN (14:34)
[2020-02-27] MEDS: SODIUM CHLORIDE 0.9% 1,000 ML IV SCH ×2 (16:58→20:20)
[2020-02-27 17:01] LABS: Glucose,Whole Blood 100 mg/dL (75-99)
[2020-02-27] MEDS ORDERED: FAMOTIDINE 20 MG/2 ML VIAL IV STA (17:27)
[2020-02-27] MEDS ORDERED: methylPREDNISolone SOD SUCCI 125 MG/2 ML VIAL IV STA (17:27)
[2020-02-27] MEDS ORDERED: diphenhydrAMINE 50 MG/ML 1 ML VIAL IVP STA (17:27)
[2020-02-27] MEDS ORDERED: LORazepam 2 MG/ML INJ IV STA (18:06)
--- NOTE | 2020-02-27 18:35 | P.CNNES ---
History of Present Illness Consult date: 02/27/20 Requesting physician: Shilo Wolfe Reason for Consult: Altered mental status History of Present Illness: Patient is a 74-year-old female admitted for progressive confusion or lack of appetite. Patient's son was also present, who provided all the history. Patient has history of neuropathy in her feet, and was seeing a supervisor litharge, who recommended physical therapy. He shouldn't was almost in wheelchair due to neuropathy. After she underwent physical therapy, she was doing much better. However because of this Covid epidemic, patient stopped going to physical therapy. Patient's symptoms started around 02/04/2020 when she started having some headache, and she slept longer than usual it is unusual for her. The next day patient son noticed that she was confused, couldn't form sentences. She was searching for words. Patient was brought to the ER on 02/07/2020, underwent computed tomography scan of the brain, reported as no acute intracranial abnormality. At least 2 previous infarcts. There is interval development of left posterior parietal infarct. This is not acute but change from previous, w hen compared to the CAT scan from 03/15/2018. It was felt patient has possible dehydration, was recommended to take aspirin 325 mg daily, which she was not taking previously, and also recommended to start Lipitor. She was sent home from ER. Patient son noticed that she was somewhat better the next few days and then leveled off. Patient has been taking aspirin regularly, but stopped taking Lipitor for days after because of some side effects. In the last 1 week, patient has developed extreme phobia of everything. She is terrified of everything. While swallowing she is concerned she is going to choke. When she is going to the refrigerator, she feels the battery of for wheelchair will run out and she will left there forever. She is concerned of toilet paper is running out. She believes it is "End of the world". She is concerned that she will end up losing her house or all money. Complaining of soreness in the kidneys. Her son noticed that she is much worse in the morning as compared to the evening. Patient was seen by her primary physician, who recommended an MRI of the brain and a carotid Doppler, which was scheduled on 02/20/2020, but patient declined to go to the testing as she believes that she is alright. Patient has stopped eating, drinking. One week ago, patient felt that she has developed major anxiety attack. Some days she appears better other days she appears much worse. Sometimes she does not make any sense. She tries to manipulate, and then perform things wrong ways. CT head from today showed chronic white matter ischemic change. Old left pariet o-occipital watershed infarct. On my review, there appears a slight amount of cortical laminar necrosis versus very small amount of subarachnoid hemorrhage in the area of the stroke. Chest x-ray showed no acute cardiopulmonary process. EKG showed normal sinus rhythm with ST and T-wave abnormality. WBC 11.6-year-old with 30.7 platelets are normal. PT/PTT normal. Sodium 136 potassium 4.1, her renal functions normal. AST is mildly elevated 39, ALT 42. UA negative. Patient was taking Elavil 25 mg at bedtime and duloxetine 20 mg. Patient's son did try to hold off on Elavil for one week, which did not help. Patient has never smoked. Has diabetes for the last 2 years. Also has hypertension and hyperlipidemia. Review of Systems Patient denies headache. She continues to complain of why she came to the hospital, she is listing others time, does not want to have any Scans or testing, she believes someone deserves it. Denies any chest pain, shortness of breath. She does have mild chronic cough. Past Medical History Past Medical History: Fibromyalgia, Hypertension, Rheumatoid Arthritis (RA) Additional Past Medical History / Comment(s): GOUT, confusion History of Any Multi-Drug Resistant Organisms: None Reported Past Surgical History: Appendectomy, Section, Orthopedic Surgery, Tonsillectomy, Tubal Ligation Past Psychological History: Anxiety, Depression, Panic Disorder Smoking Status: Never smoker Past Alcohol Use History: None Reported Past Drug Use History: None Reported Medications and Allergies Home Medications Medication Instructions Recorded Confirmed Type DULoxetine HCL [Cymbalta] 20 mg PO DAILY 03/15/18 02/27/20 History Amitriptyline HCl [Elavil] 25 mg PO HS 02/07/20 02/27/20 History amLODIPine [Norvasc] 10 mg PO DAILY 02/07/20 02/27/20 History metFORMIN HCL [Glucophage] 500 mg PO BID 02/07/20 02/27/20 History Metoprolol Tartrate [Lopressor] 100 mg PO BID 02/27/20 02/27/20 History Allergies Allergy/AdvReac Type Severity Reaction Status Date / Time dicyclomine [From Bentyl] Allergy Unknown Verified 02/27/20 14:49 grass pollen Allergy Unknown Verified 02/27/20 14:49 Iodinated Contrast Media Allergy Unknown Verified 02/27/20 14:49 [Iodinated Contrast- Oral and IV Dye] mold Allergy Unknown Verified 02/27/20 14:49 oxycodone Allergy Unknown Verified 02/27/20 14:49 povidone-iodine Allergy Unknown Verified 02/27/20 14:49 [From Betadine] propoxyphene Allergy Unknown Verified 02/27/20 14:49 [From Darvocet-N] soap [From Betadine] Allergy Unknown Verified 02/27/20 14:49 Physical Examination - Vital Signs Vital Signs: Vital Signs Temp Pulse Resp BP Pulse Ox 02/27/20 14:00 63 14 158/85 100 02/27/20 13:30 60 16 144/81 100 02/27/20 12:18 62 18 143/79 100 02/27/20 11:10 98.2 F 66 18 127/76 99 Intake and Output 02/27/20 02/27/20 02/27/20 06:59 14:59 22:59 Other: Weight 93.894 kg On examination patient is an elderly female, in no acute distress. She appears obviously confused. She has some tardive dyskinesias. Patient states it is February and the year is 2019. She knows that she is in [facility] and that she is in [facility]. Patient can name and repeat very well. Attention and concentration and fund of knowledge is limited. Patient continues to repeat that she should not have come to the hospital, she is fine. She believes she is wasting other people's time. She believes her son will get a fine, because of bringing her to the hospital and wasting others time. On cranial nerve examination pupils are round and reactive to light, visual evans revealed questionable visual field deficit on the right, but was very inconsistent and patient could not focus and cooperate. Face is symmetric and tongue protrudes slightly towards the right. On muscle strength testing there is no pronator drift and the strength is normal in the arms and legs distally and proximally. Reflexes are symmetric and plantars are downgoing. Patient has high arched feet and hammertoes. Sensory touch appears equal although was inconsistent. No ataxia for [id number] testing. Tone and bulk of muscles normal. No obvious bruit, S1 and S2 audible. No peripheral edema. 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 Rule out left ICA/MCA occlusion/stenosis. * Hypertension * Diabetes * Hyperlipidemia * Mental confusion, delirium, paranoia, likely due to above. Plan: * Patient will undergo MRI of the brain to evaluate for acute to subacute stroke, rule out hemorrhagic transformation. * Patient will undergo a stat CTA of head and neck to rule out carotid or left ICA/MCA stenosis/occlusion. * 2-D echo to evaluate for embolic source. * EEG for mental confusion. * Fasting a.m. lipid panel, hemoglobin A1c. B12, folate, TSH. * Continue aspirin 325 mg daily for now. * Start Lipitor 40 mg daily. * Dr. Schneider will cover neurology service over the weekend.
--- NOTE | 2020-02-27 19:36 | CT ---
EXAMINATION TYPE: CT angio head neck DATE OF EXAM: 02/27/2020 COMPARISON: Correlation CT brain same day HISTORY: 74-year-old female with CVA, carotid stenosis TECHNIQUE: Contiguous axial scanning of the head and neck performed with IV Contrast, patient injecte d with 65cc mL of Isovue 370. Coronal and sagittal MIP reconstructions performed. 3-D reconstructions generated on a dedicated independent workstation. CT DLP: 621.5 mGycm Automated exposure control for dose reduction was used. FINDINGS: NECK: Bovine configuration to the aortic arch. Vertebral arteries are codominant. Tortuous bilateral V1 segment vertebral artery. Otherwise, vertebr al arteries are patent throughout the course. Tortuous right common carotid artery. Upper right common carotid artery has a residual pharyngeal cou rse. Proximal right ICA has a retropharyngeal course in a 90 degrees bend as it exits the retropharyngeal region. Moderate atherosclerotic change of the right bifurcation. Unable to exclude a severe, greater than 70% focal sclerotic narrowing at the takeoff of the right IC A, refer to the curved reconstruction, image 16. Remainder of the right ICA. The bifurcation is high located at the level of the angle of the mandible. Tortuous mid left common carotid artery. Upper common carotid artery has a retropharyngeal course. Moderate atherosclerotic change of the left bifurcation with mild to moderate, just under 50% proxima l ICA stenosis. The left ICA has a left lateral horizontal takeoff before a hairpin turn and then superior ascent. 1.9 cm hypodense right thyroid lobe nodule. Possible underlying inferior left thyroid lobe nodule theresa tyree a hardening artifact. Dedicated thyroid ultrasound can further evaluated on a nonemergent basis. HEAD: Moderate atherosclerotic narrowing at the clinoid segments of the bilateral internal carotid arteries . The vertebral and basilar arteries are patent. Remainder of the posterior circulation is patent. Remainder of the anterior circulation is also patent but with an 8 mm long segment of moderate to sev ere atherosclerotic narrowing at the A3/A4 junction of the anterior cerebral artery, refer to sagitta l MIP series 407 image 12. No aneurysmal change is seen. IMPRESSION: NECK: 1. Unable to exclude a severe, greater than 70% focal stenosis at the takeoff of the right ICA (refer to curved reconstruction image 16). There is retropharyngeal course of the upper right CCA and proxi mal right ICA. The bifurcation is high, located at the level of the angle of the mandible. 2. Mild to moderate stenosis, just under 50% within the proximal left ICA. 3. Nonemergent follow-up thyroid ultrasound to assess underlying thyroid nodules measuring up to 1.9 cm. HEAD: 1. An 8 mm long segment of moderate to severe atherosclerotic narrowing at the A3/A4 junction of the anterior cerebral artery (sagittal MIP series 407, image 12). 2. Moderate atherosclerotic narrowing involving the clinoid segments of the bilateral internal caroti d arteries. 3. No large vessel intracranial arterial occlusion or aneurysmal change is seen.
[2020-02-27] MEDS: ASPIRIN 325 MG TAB PO SCH (20:17)
[2020-02-27] MEDS: HEPARIN SODIUM,PORCINE 5,000 UNIT/ML 1 ML VIAL SQ SCH (20:17)
[2020-02-27] MEDS: METOPROLOL TARTRATE 50 MG TAB PO SCH (20:19)
[2020-02-27 20:47] LABS: Glucose,Whole Blood 190 mg/dL (75-99)
--- NOTE | 2020-02-27 21:12 | P.HPIM ---
History of Present Illness H&P Date: 02/27/20 Chief Complaint: Stroke, severe confusion and paranoia, worsening dementia, hypertension, di 74-year-old female one of Dr. sarkar's patient with past medical history of severe neuropathy was treated in the past for it and has done some physical therapy and medical management did well but it to relapse and couldn't go any further for physical therapy because of the COVID 19 epidemiology. Patient was in the emergency room on 02/07/2020 because of in usual sign and symptom of confusion and altered mental status at the time ended up going for CAT scan of the brain with no major abnormality compared to previous CAT scan from 2018 patient was treated for dehydration at the time and recommended to stay on aspirin and Plavix as secondary prevention for stroke and was sent home. She continue aspirin but with quit taking Lipitor because of muscle pain and joint pain. Patient brought to demurs department today because noticed by family for the lost week or so has been having more paranoia with worsening mental status she is concerned about the end of the world concern about choking when she eats running out of money running out of May paper concern about her family she had quite bit vague complain with severe generalized weakness and fatigue significant decreased mobility she quit eating and drinking in her symptom becomes a lot worse. Family brought her to the emergency department at [facility] today were was seen CAT scan of the brain showed slight ischemic change mostly in the white matter in the left popliteal to occipital area with sign similar to acute versus subacute stroke. The rest of her lab value and EKG didn't show any abnormality except slight elevation of liver function test and possible mild dehydration. According to family patient was taking duloxetine and Elavil apparently has been off elevated for the last few days with concern of side effect which did not help. She is taking the rest of her medication at this point with the exception of Lipitor. Patient was started on hydration we will consult neurology further testing including MRI of the brain with carotid ultrasound to be done while she is in to exclude any ischemic event carotid stenosis and other. Review of Systems CONSTITUTIONAL: Well-developed no acute respiratory distress. Mild slow tremor- like with concerning face especially when patient doesn't feel anyone watching her. EYES: No icterus sclerae, no conjunctivitis. EARS, NOSE, MOUTH, THROAT, and FACE: No sore throat, lymphadenopathy, carotid bruits or deformity. RESPIRATORY: No SOB cough or wheezes. CARDIOVASCULAR: No CP, Palpitation, PND, Orthopnea, or angina. GASTROINTESTINAL: No Abd pain, Nausea or vomiting, no Diarrhea or constipation, No GI Bleed, no distention or masses. GENITOURINARY: Negative for Hematuria or UTI, no kidney stones. INTEGUMENT/BREAST: Negative for any muscular injury with mild osteoarthritis.. HEMATOLOGIC/LYMPHATIC: Negative for bleed or purpura. MUSCULOSKELTAL: Generalized arthralgia and myalgia. NEURLOGICAL: Significant altered mental status with short-term memory loss, generalized weakness abnormal balance and gait. BEHAVIORAL/PSYCH: Worsening memory. ENDOCRINE: Negative. Past Medical History Past Medical History: Fibromyalgia, Hypertension, Rheumatoid Arthritis (RA) Additional Past Medical History / Comment(s): GOUT, confusion History of Any Multi-Drug Resistant Organisms: None Reported Past Surgical History: Appendectomy, Section, Orthopedic Surgery, Tonsillectomy, Tubal Ligation Past Psychological History: Anxiety, Depression, Panic Disorder Smoking Status: Never smoker Past Alcohol Use History: None Reported Past Drug Use History: None Reported Medications and Allergies Home Medications Medication Instructions Recorded Confirmed Type DULoxetine HCL [Cymbalta] 20 mg PO DAILY 03/15/18 02/27/20 History Amitriptyline HCl [Elavil] 25 mg PO HS 02/07/20 02/27/20 History amLODIPine [Norvasc] 10 mg PO DAILY 02/07/20 02/27/20 History metFORMIN HCL [Glucophage] 500 mg PO BID 02/07/20 02/27/20 History Metoprolol Tartrate [Lopressor] 100 mg PO BID 02/27/20 02/27/20 History Allergies Allergy/AdvReac Type Severity Reaction Status Date / Time dicyclomine [From Bentyl] Allergy Unknown Verified 02/27/20 14:49 grass pollen Allergy Unknown Verified 02/27/20 14:49 Iodinated Contrast Media Allergy Unknown Verified 02/27/20 14:49 [Iodinated Contrast- Oral and IV Dye] mold Allergy Unknown Verified 02/27/20 14:49 oxycodone Allergy Unknown Verified 02/27/20 14:49 povidone-iodine Allergy Unknown Verified 02/27/20 14:49 [From Betadine] propoxyphene Allergy Unknown Verified 02/27/20 14:49 [From Darvocet-N] soap [From Betadine] Allergy Unknown Verified 02/27/20 14:49 Physical Exam Vitals: Vital Signs Temp Pulse Resp BP Pulse Ox 02/27/20 16:00 98.0 F 67 18 152/86 100 02/27/20 15:30 67 19 157/89 100 02/27/20 15:00 63 20 161/85 100 02/27/20 14:30 64 17 145/86 100 02/27/20 14:00 63 14 158/85 100 02/27/20 13:30 60 16 144/81 100 02/27/20 12:18 62 18 143/79 100 02/27/20 11:10 98.2 F 66 18 127/76 99 Intake and Output 02/27/20 02/27/20 02/27/20 06:59 14:59 22:59 Other: Weight 93.894 kg General Appearance: Alert, cooperative, no distress, appears stated age. Neck HEENT: Supple, no lymphadenopathy, no thyroid enlargement, no carotid bruits. Lungs: Decreased breath some bilaterally with fine rhonchi no crackles or wheezes.. Chest Wall decrease expansion with deep inspiration no tenderness and no deformity was found on exam, no costochondral pain or discomfort. Heart: Regular rate and rhythm, S1, S2 normal, no murmur, rub or gallop. Back: Symmetric, no curvature, ROM normal, no CVA tenderness. Abdomen: Soft, non-tender, bowel sounds active all four quadrants, no masses, no organomegaly. Extremities: Extremities normal, atraumatic, no cyanosis or edema. Mild osteoarthritis both knees. Pulses: 2+ and symmetric. Skin: Skin color, texture, tugor normal, no rashes or lesions. Neurologic: Alert oriented with slight confusion cranial nerves II through XII intact, positive generalized weakness with no focal deficit slight abnormal balance and gait. Results CBC & Chem 7: 02/27/20 12:05 02/27/20 12:05 Labs: Abnormal Lab Results - Last 24 Hours (Table) 02/27/20 02/27/20 02/27/20 Range/Units 12:05 12:05 14:05 WBC 11.6 H (3.8-10.6) k/uL Neutrophils # 8.9 H (1.3-7.7) k/uL Sodium 136 L (137-145) mmol/L BUN 27 H (7-17) mg/dL Glucose 194 H (74-99) mg/dL AST 39 H (14-36) U/L ALT 42 H (4-34) U/L Urine Protein 2+ H (Negative) Ur Leukocyte Esterase Trace H (Negative) Thrombosis Risk Factor Assmnt - DVT/VTE Prophylaxis DVT/VTE Prophylaxis: Pharmacologic Prophylaxis ordered, Mechanical Prophylaxis ordered Assessment and Plan Assessment: 1 change of mental status: Most likely encephalopathy with possible combination of stroke versus subacute stroke versus metabolic encephalopathy in origin versus side effect of medication also to keep in mind the possibility of psych problems and patient's age is very high at this point as well. 2 CVA acute versus subacute: Patient be seen urology will lab before patient for an MRI of the brain and carotid ultrasound, keep watching patient on dray driver for any abnormal arrhythmia. Reevaluate patient clinically and start PTOT at this point. 3 acute versus subacute psychosis with worsening confusion: We'll consult psychiatry I am going to hold Elavil for now but continue duloxetine awaiting for the final result of the MRI and the consultation from site. 4 mild dehydration: Continue patient hydration for now increase oral intake and encourage fluid intake as well. 5 hypertension: Has been on Norvasc and metoprolol resume both medication if possible specially if there is any sign of mild bradycardia to decrease the dose of Lopressor and try not to go higher than 50 mg to avoid any side effect of beta ben might cause severe bradycardia. With the blood pressure the weight is patient will benefit probably from other blood pressure medication less side effect and amlodipine and metoprolol one of the option to start hydralazine and if there is no side effect to ARB to start patient on valsartan and titrate dose higher to control the blood pressure. 6 type 2 diabetes: Has been on metformin 500 mg twice a day we will add Accu- Chek with sliding scales coverage if patient had any CAT scan with contrast hold metformin for now if needed can start the Prandin 1-2 mg twice a day. 7 severe neuropathy: Patient was on Elavil or amitriptyline doesn't look like she had any side effect or any trial of Lyrica or gabapentin in the past. 8 severe depression and mild anxiety and panic attack has been on the Loxitane not quite sure this is reaction or side effect may be switching the Loxitane to Wellbutrin or Effexor or might be more beneficial again will wait for the final psych consult and follow recommendation. 9 mild memory loss: Most likely combination of small vessel disease versus Alzheimer disease as a trial down the road will be beneficial to start patient on donepezil 10 mg a day or Rivastigmin 1.5 mg twice a day titrate dose higher if needed. 10 GI prophylaxis: Patient will be on Pepcid 20 mg daily. 11 DVT prophylaxis: Patient will have knee-high DARIAN hose and heparin subcutaneous. CODE STATUS: Full code. Admit patient to inpatient status for more than 2 nights.
[2020-02-28] MEDS ORDERED: INSULIN ASPART (NovoLOG) 100 UNIT/ML VIAL SQ ONE (02:54)
[2020-02-28 03:02] LABS: Glucose,Whole Blood 280 mg/dL (75-99)
[2020-02-28] MEDS: ACETAMINOPHEN TAB 325 MG TAB PO PRN ×2 (03:03→14:52)
[2020-02-28 03:31] LABS: Folate, Serum 23.9 ng/mL
[2020-02-28 03:34] LABS: Hemoglobin A1C 7.2 % (4.0-6.0)
[2020-02-28 04:22] LABS: Glucose,Whole Blood 230 mg/dL (75-99)
[2020-02-28 06:53] LABS: Glucose,Whole Blood 199 mg/dL (75-99)
[2020-02-28] MEDS: FAMOTIDINE 20 MG TAB PO SCH (07:34)
[2020-02-28] MEDS: DULoxetine HCL 20 MG CAPSULE.DR PO SCH (07:34)
[2020-02-28] MEDS: HEPARIN SODIUM,PORCINE 5,000 UNIT/ML 1 ML VIAL SQ SCH ×2 (07:34→21:38)
[2020-02-28] MEDS: amLODIPine 10 MG TAB PO SCH (07:34)
[2020-02-28] MEDS: METOPROLOL TARTRATE 50 MG TAB PO SCH ×2 (07:35→21:37)
[2020-02-28] MEDS: INSULIN ASPART (NovoLOG) 100 UNIT/ML VIAL SQ SCH ×5 (07:35→21:38)
[2020-02-28] MEDS: ASPIRIN 325 MG TAB PO SCH (07:38)
[2020-02-28 12:29] LABS: Glucose,Whole Blood 154 mg/dL (75-99)
[2020-02-28] MEDS: REPAGLINIDE 1 MG TAB PO SCH ×2 (12:54→18:06)
--- NOTE | 2020-02-28 13:14 | MR ---
EXAMINATION TYPE: MR brain wo con DATE OF EXAM: 02/28/2020 12:19 PM. COMPARISON: Previous CT scan dated 02/27/2020.. HISTORY: Confusion and altered mental status Technique: Multiplanar, multiecho imaging of the brain was obtained without intravenous contrast. FINDINGS: There is evidence of hyperostosis frontalis internus. There is evidence of a tiny lacunar infarct in the corpus callosum on the right. Midline structures a re otherwise unremarkable. There is a normal craniocervical junction. Echoplanar diffusion imaging demonstrates restricted diffusion in the left occipital parietal region in the same region where the patient's recent CT was positive. No other restricted diffusion is ident ified. There are normal vascular flow voids. The orbits are unremarkable. There is no evidence of a CP angle mass lesion. There is evidence of edema in the area of the patient's watershed infarct on the left. There is also extensive punctate and confluent periventricular white matter change likely on the basis of chronic W franny matter ischemic change and small vessel disease. There is evidence of Wallerian degeneration wit hin the librado. There is no mass effect, midline shift or intracranial blood. IMPRESSION: 1. EVIDENCE OF A SUBACUTE INFARCT IN THE LEFT PARIETO-OCCIPITAL REGION. 2. DIFFUSE, PUNCTATE AND CONFLUENT PERIVENTRICULAR WHITE MATTER CHANGE, LIKELY ON THE BASIS OF A COMB INATION OF SMALL VESSEL DISEASE AND CHRONIC ISCHEMIC CHANGE.
--- NOTE | 2020-02-28 13:54 | ECHOF ---
Referral Reason:CVA MEASUREMENTS -------- HEIGHT: 172.7 cm WEIGHT: 93.9 kg BP: IVSd: 1.0 cm (0.6 - 1.1) LVIDd: 4.6 cm (3.9 - 5.3) LVPWd: 1.3 cm (0.6 - 1.1) IVSs: 1.6 cm LVIDs: 2.5 cm LVPWs: 1.3 cm LAESV Index (A-L): 27.47 ml/m Ao Diam: 3.6 cm (2.0 - 3.7) AV Cusp: 1.9 cm (1.5 - 2.6) LA Diam: 3.6 cm (2.7 - 3.8) MV EXCURSION: 17.180 mm (> 18.000) MV EF SLOPE: 135 mm/s (70 - 150) EPSS: 1.1 cm MV E Micah: 1.00 m/s MV DecT: 296 ms MV A Micah: 1.15 m/s MV E/A Ratio: 0.87 RAP: 5.00 mmHg RVSP: 12.99 mmHg FINDINGS -------- Sinus rhythm. This was a technically good study. The left ventricular size is normal. There is borderline concentric left ventricular hypertrophy. Overall left ventricular systolic function is normal with, an EF between 55 - 60 %. Normal LAP Gra de 1 Diastolic Dysfunction. The right ventricle is normal in size. The left atrial size is normal. Normal LA size by volume 22+/-6 ml/m2. The right atrial size is normal. The aortic valve is trileaflet and appears structurally normal. The mitral valve is normal. The mitral valve leaflets are mildly thickened. Mild mitral regurgita tion is present. The tricuspid valve appears structurally normal. Mild tricuspid regurgitation present. Right vent ricular systolic pressure is normal at < 35 mmHg. There is no pulmonic regurgitation present. The aortic root size is normal. Normal inferior vena cava with normal inspiratory collapse consistent with estimated right atrial pre ssure of 5 mmHg. There is no pericardial effusion. CONCLUSIONS -------- 1. Sinus rhythm. 2. This was a technically good study. 3. The left ventricular size is normal. 4. There is borderline concentric left ventricular hypertrophy. 5. Overall left ventricular systolic function is normal with, an EF between 55 - 60 %. 6. Normal LAP Grade 1 Diastolic Dysfunction. 7. The right ventricle is normal in size. 8. The left atrial size is normal. 9. Normal LA size by volume 22+/-6 ml/m2. 10. The right atrial size is normal. 11. The aortic valve is trileaflet and appears structurally normal. 12. The mitral valve is normal. 13. The mitral valve leaflets are mildly thickened. 14. Mild mitral regurgitation is present. 15. The tricuspid valve appears structurally normal. 16. Mild tricuspid regurgitation present. 17. Right ventricular systolic pressure is normal at < 35 mmHg. 18. There is no pulmonic regurgitation present. 19. The aortic root size is normal. 20. Normal inferior vena cava with normal inspiratory collapse consistent with estimated right atrial pressure of 5 mmHg. 21. There is no pericardial effusion. TOOL LAPPER HAND: Beth Reid RDCS
--- NOTE | 2020-02-28 14:01 | EEG ---
ELECTROENCEPHALOGRAM REPORT PROCEDURE DATE: 02/28/2020. ELECTROENCEPHALOGRAM (EEG) REPORT: TECHNIQUE: A routine 18 channel EEG was performed with video using the 10/20 international electrode placement system. HISTORY: Confusion which started on 02/04/2020. Other symptoms include a headache. CURRENT MEDICATIONS: Cymbalta, Lopressor, aspirin, Norvasc. FINDINGS: STUDY DURATION: 24 minutes. Please note that portions of the recording were limited and interpretation by the presence of muscle artifact. BACKGROUND: The background activity consisted of 8-9 hertz rhythmic waveforms, symmetric through both posterior quadrants. ACTIVATION: Hyperventilation: Not performed. Photic stimulation: Symmetric driving seen. Sleep: None. ABNORMALITIES: None. IMPRESSION: Normal EEG. No epileptiform activity was present. No seizures were recorded. MMODL / IJN: [id number] /
[2020-02-28 16:53] LABS: Glucose,Whole Blood 75 mg/dL (75-99)
--- NOTE | 2020-02-28 17:29 | P.PN ---
Subjective Progress Note Date: 02/28/20 The patient is a 74-year-old female who is seen in neurologic follow- up on February 28, 2020 via teleneurology. The patient reports that she is feeling "fantastic" today. She said that yesterday she was unable to function at all. This has been going on for the past 3 weeks. She notes that she had been having difficulty even getting up from bed. The patient says she is able to use her phone and use the TV remote. She was unable to do this yesterday. She does report intermittent pain in her feet. She describes it as a burning pain. This has been present for some time now. Objective - Vital Signs Vital signs: Vital Signs Temp 98.1 F 02/28/20 07:00 Pulse 74 02/28/20 08:00 Resp 16 02/28/20 08:00 BP 157/80 02/28/20 07:00 Pulse Ox 98 02/28/20 07:00 Intake & Output 02/27/20 02/28/20 02/28/20 18:59 06:59 18:59 Intake Total 300 850 Balance 300 850 Weight 93.894 kg Intake: Intake, IV Titration 300 500 Amount Sodium Chloride 0.9% 1, 300 500 000 ml @ 100 mls/hr IV . Q10H [facility] Rx#:[id number] Oral 350 Other: Voiding Method Toilet Toilet # Voids 2 - Exam Gen.: The patient is well-nourished, well-developed and in no acute distress. HEENT: Head is atraumatic, normocephalic. Fundus not visualized. There is no scleral icterus. Mucous membranes are moist. Heart: Regular rate and rhythm Neurological examination Mental status: The patient is awake, alert and oriented 3. She is hyperverbal. Cranial nerves: Pupils are equal, round and reactive to light. Visual evans are full to confrontation. Extraocular muscles are intact. There is no nystagmus. Facial sensation is intact. There is no facial asymmetry. Hearing is grossly intact. Uvula and palate are midline. Shoulder shrug is symmetric. Tongue protrudes midline. Motor: Bilateral bingo cashier strength 5/5. Bilateral plantar flexion 5-/5. Bilateral dorsiflexion 5/5. Right hip flexion 4/5. Left hip flexion 5/5. Coordination: There is right-sided dysmetria on finger to nose testing. Deep tendon reflexes: Absent throughout - Labs CBC & Chem 7: 02/27/20 12:05 02/27/20 12:05 Labs: Abnormal Lab Results - Last 24 Hours (Table) 02/27/20 02/27/20 02/27/20 Range/Units 12:05 17:00 20:30 POC Glucose (mg/dL) 100 H 190 H (75-99) mg/dL Hemoglobin A1c 7.2 H (4.0-6.0) % 02/28/20 02/28/20 02/28/20 Range/Units 02:51 04: 06:50 POC Glucose (mg/dL) 280 H 230 H 199 H (75-99) mg/dL Hemoglobin A1c (4.0-6.0) % 02/28/20 Range/Units 12:27 POC Glucose (mg/dL) 154 H (75-99) mg/dL Hemoglobin A1c (4.0-6.0) % Assessment and Plan Assessment: Impressions: 1. Subacute left parietal occipital infarct with surrounding edema 2. Peripheral neuropathy with neuropathic pain 3. Greater than 70% stenosis of the right internal carotid artery 4. Moderate narrowing of the bilateral clinoid portions of the internal carotid arteries 5. Normal EEG Plan: Recommendations: 1. Stroke workup; including lipid panel, hemoglobin A1c, TSH 2. The patient should be started on a high-dose statin for further stroke prevention 3. The patient should be taking aspirin 81 mg 4. Consider vascular consultation regarding right ICA stenosis Time with Patient: Greater than 30 (spent 45 minutes with the patient via teleneurology)
--- NOTE | 2020-02-28 18:23 | CONS ---
DATE OF CONSULTATION: 02/28/2020 This is a 74-year-old female. She came to the emergency room brought by the family with a history of progressive confusion and lack of appetite. The patient is confused and the history is obtained from the old record. She is also having some kind of paranoid thoughts. There is no history of any motor deficit. No history of amaurosis fugax or speech disorder. The patient had a stroke workup, including a CT of the brain which shows chronic white matter changes and there is old left parieto-occipital infarct. The patient also had a CT angiogram of the carotid which showed the right ICA about 70% stenosis with high bifurcation, left is 50% stenosis and vertebral arteries are patent. MEDICAL HISTORY: History of fibromyalgia, hypertension, rheumatoid arthritis. SOCIAL HISTORY: No history of smoking. PHYSICAL EXAMINATION: The patient was seen in her room, sitting comfortably. Neck is supple. No bruit appreciated. CHEST: Clear on auscultation. First and second sounds normal. Abdomen is soft. The patient has a normal motor function of her lower extremity. The patient was seen by Neurology and we will discuss with Neurology and Internal Medicine. At this point, patient has no history of transient ischemic attack or amaurosis fugax and the patient has no critical stenosis of the carotid artery. The patient is on antiplatelet therapy and cholesterol lowering medications. We will follow with you. Thank you for this consultation. ROCÍO / ASHLIN: [id number] / DANIEL
[2020-02-28] MEDS: SODIUM CHLORIDE 0.9% 1,000 ML IV SCH ×2 (19:31→21:41)
[2020-02-28 20:22] LABS: Glucose,Whole Blood 137 mg/dL (75-99)
--- NOTE | 2020-02-28 20:50 | P.PN ---
Subjective Progress Note Date: 02/28/20 Principal diagnosis: Stroke, severe confusion and paranoia, worsening dementia, hypertension, chronic neuropathy and dehydration. 74-year-old female one of Dr. sarkar's patient with past medical history of severe neuropathy was treated in the past for it and has done some physical therapy and medical management did well but it to relapse and couldn't go any further for physical therapy because of the COVID 19 epidemiology. Patient was in the emergency room on 02/07/2020 because of in usual sign and symptom of confusion and altered mental status at the time ended up going for CAT scan of the brain with no major abnormality compared to previous CAT scan from 2018 patient was treated for dehydration at the time and recommended to stay on aspirin and Plavix as secondary prevention for stroke and was sent home. She continue aspirin but with quit taking Lipitor because of muscle pain and joint pain. Patient brought to demurs department today because noticed by family for the lost week or so has been having more paranoia with worsening mental status she is concerned about the end of the world concern about choking when she eats running out of money running out of May paper concern about her family she had quite bit vague complain with severe generalized weakness and fatigue significant decreased mobility she quit eating and drinking in her symptom becomes a lot worse. Family brought her to the emergency department at [facility] today were was seen CAT scan of the brain showed slight ischemic change mostly in the white matter in the left popliteal to occipital area with sign similar to acute versus subacute stroke. The rest of her lab value and EKG didn't show any abnormality except slight elevation of liver function test and possible mild dehydration. According to family patient was taking duloxetine and Elavil apparently has been off elevated for the last few days with concern of side effect which did not help. She is taking the rest of her medication at this point with the exception of Lipitor. Patient was started on hydration we will consult neurology further testing including MRI of the brain with carotid ultrasound to be done while she is in to exclude any ischemic event carotid stenosis and other. 02/27: Patient is doing EEG today, pending MRI of the brain, still having slight and the status change. Neuro consultation was done but psych consult at this point still pending. Patient was seen Dr. Street vascular and with the significant stenosis on CTA of the neck nor reason for any intervention at this point according to him. Objective - Vital Signs Vital signs: Vital Signs Temp 98.8 F 02/28/20 20:04 Pulse 77 02/28/20 20:04 Resp 16 02/28/20 20:04 BP 163/76 02/28/20 20:04 Pulse Ox 99 02/28/20 20:04 Intake & Output 02/28/20 02/28/20 02/29/20 06:59 18:59 06:59 Intake Total 300 850 Balance 300 850 Intake: Intake, IV Titration 300 500 Amount Sodium Chloride 0.9% 1, 300 500 000 ml @ 100 mls/hr IV . Q10H [facility] Rx#:[id number] Oral 350 Other: Voiding Method Toilet Toilet # Voids 2 - Exam Review of systems: CONSTITUTIONAL: Well-developed no acute respiratory distress. EYES: No icterus sclerae, no conjunctivitis. EARS, NOSE, MOUTH, THROAT, and FACE: No sore throat, lymphadenopathy, carotid bruits or deformity. RESPIRATORY: No SOB cough or wheezes. CARDIOVASCULAR: No CP, Palpitation, PND, Orthopnea, or angina. GASTROINTESTINAL: No Abd pain, Nausea or vomiting, no Diarrhea or constipation, No GI Bleed, no distention or masses. GENITOURINARY: Negative for Hematuria or UTI, no kidney stones. INTEGUMENT/BREAST: Negative for any muscular injury with mild osteoarthritis.. HEMATOLOGIC/LYMPHATIC: Negative for bleed or purpura. MUSCULOSKELTAL: Negative for Myalgia or arthralgia. NEURLOGICAL: Significant change mental status with confusion. BEHAVIORAL/PSYCH: Mild dementia and acute psychosis. ENDOCRINE: Negative. Physical examinations: General Appearance: Alert, cooperative, no distress, appears stated age. Neck HEENT: Supple, no lymphadenopathy, no thyroid enlargement, no carotid bruits. Lungs: Clear to auscultation without crackles or wheezes no rhonchi, no deformity. Chest Wall: Chest wall normal expansion with deep inspiration no tenderness and no deformity was found on exam, no costochondral pain or discomfort. Heart: Regular rate and rhythm, S1, S2 normal, no murmur, rub or gallop. Back: Symmetric, no curvature, ROM normal, no CVA tenderness. Abdomen: Soft, non-tender, bowel sounds active all four quadrants, no masses, no organomegaly. Extremities: Extremities normal, atraumatic, no cyanosis or edema. Pulses: 2+ and symmetric. Skin: Skin color, texture, tugor normal, no rashes or lesions. Neurologic: Alert oriented with slight confusion, cranial nerves II through XII intact, no motor deficit, positive normal balance and gait. - Labs CBC & Chem 7: 02/27/20 12:05 02/27/20 12:05 Labs: Abnormal Lab Results - Last 24 Hours (Table) 02/27/20 02/27/20 02/28/20 Range/Units 12:05 20:30 02:51 POC Glucose (mg/dL) 190 H 280 H (75-99) mg/dL Hemoglobin A1c 7.2 H (4.0-6.0) % 02/28/20 02/28/20 02/28/20 Range/Units 04: 06:50 12:27 POC Glucose (mg/dL) 230 H 199 H 154 H (75-99) mg/dL Hemoglobin A1c (4.0-6.0) % 02/28/20 Range/Units 20:21 POC Glucose (mg/dL) 137 H (75-99) mg/dL Hemoglobin A1c (4.0-6.0) % Assessment and Plan Assessment: 1 change of mental status: Most likely encephalopathy with possible combination of stroke versus subacute stroke versus metabolic encephalopathy in origin versus side effect of medication also to keep in mind the possibility of psych problems and patient's age is very high at this point as well. 2 CVA acute versus subacute: Patient be seen urology will lab before patient for an MRI of the brain and carotid ultrasound, keep watching patient on monitoring analyst for any abnormal arrhythmia. Reevaluate patient clinically and start PTOT at this point. 3 acute versus subacute psychosis with worsening confusion: We'll consult psychiatry I am going to hold Elavil for now but continue duloxetine awaiting fo r the final result of the MRI and the consultation from site. 4 mild dehydration: Continue patient hydration for now increase oral intake and encourage fluid intake as well. 5 hypertension: Has been on Norvasc and metoprolol resume both medication if possible specially if there is any sign of mild bradycardia to decrease the dose of Lopressor and try not to go higher than 50 mg to avoid any side effect of beta ben might cause severe bradycardia. With the blood pressure the weight is patient will benefit probably from other blood pressure medication less side effect and amlodipine and metoprolol one of the option to start hydralazine and if there is no side effect to ARB to start patient on valsartan and titrate dose higher to control the blood pressure. 6 type 2 diabetes: Has been on metformin 500 mg twice a day we will add Accu- Chek with sliding scales coverage if patient had any CAT scan with contrast hold metformin for now if needed can start the Prandin 1-2 mg twice a day. 7 severe neuropathy: Patient was on Elavil or amitriptyline doesn't look like she had any side effect or any trial of Lyrica or gabapentin in the past. 8 severe depression and mild anxiety and panic attack has been on the Loxitane not quite sure this is reaction or side effect may be switching the Loxitane to Wellbutrin or Effexor or might be more beneficial again will wait for the final psych consult and follow recommendation. 9 mild memory loss: Most likely combination of small vessel disease versus Alzheimer disease as a trial down the road will be beneficial to start patient on donepezil 10 mg a day or Rivastigmin 1.5 mg twice a day titrate dose higher if needed. 10 GI prophylaxis: Patient will be on Pepcid 20 mg daily. 11 DVT prophylaxis: Patient will have knee-high DARIAN hose and heparin subcutaneous.
[2020-02-29 07:03] LABS: Glucose,Whole Blood 168 mg/dL (75-99)
[2020-02-29 07:09] LABS: Basophils % (A) 0 %; Eosinophils # (A) 0.1 k/uL (0-0.7); Eosinophils % (A) 1 %; HCT 41.4 % (34.0-46.0); HGB 13.3 gm/dL (11.4-16.0); Lymphocytes # (A) 2.4 k/uL (1.0-4.8); Lymphocytes % (A) 24 %; MCH 29.6 pg (25.0-35.0); MCHC 32.1 g/dL (31.0-37.0); MCV 92.2 fL (80.0-100.0); Mean Platelet Volume 7.5; Monocytes # (A) 0.6 k/uL (0-1.0); Monocytes % (A) 6 %; Neutrophils # (A) 6.6 k/uL (1.3-7.7); Neutrophils % (A) 67 %; Platelet Count 263 k/uL (150-450); RBC 4.49 m/uL (3.80-5.40); RDW 12.4 % (11.5-15.5); WBC 9.8 k/uL (3.8-10.6)
[2020-02-29 07:27] LABS: ALT 41 U/L (4-34); AST 41 U/L (14-36); African American GFR (CKD) >90 (>60 ml/min/1.73 sqM); Albumin 3.8 g/dL (3.5-5.0); Alkaline Phosphatase 62 U/L (38-126); Anion Gap 6 mmol/L; Blood Urea Nitrogen 14 mg/dL (7-17); Calcium 8.8 mg/dL (8.4-10.2); Carbon Dioxide 29 mmol/L (22-30); Chloride 102 mmol/L (98-107); Glucose 153 mg/dL (74-99); Non-African American GFR(CKD) 88 (>60 ml/min/1.73 sqM); Potassium 3.5 mmol/L (3.5-5.1); Sodium 137 mmol/L (137-145); Total Bilirubin 0.7 mg/dL (0.2-1.3); Total Protein 6.5 g/dL (6.3-8.2)
[2020-02-29] MEDS: METOPROLOL TARTRATE 50 MG TAB PO SCH ×2 (08:24→20:48)
[2020-02-29] MEDS: REPAGLINIDE 1 MG TAB PO SCH ×2 (08:24→17:50)
[2020-02-29] MEDS: HEPARIN SODIUM,PORCINE 5,000 UNIT/ML 1 ML VIAL SQ SCH ×2 (08:24→20:47)
[2020-02-29] MEDS: ASPIRIN 325 MG TAB PO SCH (08:24)
[2020-02-29] MEDS: DULoxetine HCL 20 MG CAPSULE.DR PO SCH (08:24)
[2020-02-29] MEDS: amLODIPine 10 MG TAB PO SCH (08:24)
[2020-02-29] MEDS: INSULIN ASPART (NovoLOG) 100 UNIT/ML VIAL SQ SCH ×4 (08:24→20:48)
[2020-02-29] MEDS: FAMOTIDINE 20 MG TAB PO SCH (08:24)
[2020-02-29] MEDS: SODIUM CHLORIDE 0.9% 1,000 ML IV SCH ×2 (08:25→19:17)
[2020-02-29 11:49] LABS: Glucose,Whole Blood 106 mg/dL (75-99)
[2020-02-29 17:03] LABS: Glucose,Whole Blood 111 mg/dL (75-99)
[2020-02-29] MEDS ORDERED: DULoxetine HCL 20 MG CAPSULE.DR PO ONE (18:45)
[2020-02-29] MEDS: OLANZapine 2.5 MG TAB PO SCH ×2 (19:22→23:06)
--- NOTE | 2020-02-29 19:27 | CONS ---
CONSULTATION DATE OF SERVICE: 02/29/2020 PURPOSE FOR CONSULTATION: Evaluate for mental status change. HISTORY OF PRESENTING ILLNESS: The patient is a 74-year-old female. She was admitted to the medical floor primarily for change in mental status with concern for encephalopathy and stroke, metabolic encephalopathy. She was assessed as having "subacute psychosis with worsening confusion." She presented with mild dehydration. I interviewed the patient and also talked to the patient's son who lives adjacent to her. The son indicates that she has been on antidepressant medicines over the last two years, namely Cymbalta 20 mg a day, and amitriptyline 25 mg a day. Beyond that, she has not had significant mental health issues. Over the last three weeks, the patient was having increasing problems with anxiety and distress about her general situation. Dr. Javed documented in his admission note of 02/26 the following: "The family has noted for the last week or so she has been having more paranoia with worsening mental status." She is concerned about the end of the world, concerned about choking when she eats, running out of money, running out of toilet paper, concerned about her family. According to her son, she stopped cooking for herself. She was afraid to walk across the kitchen to the refrigerator because she was afraid she would not be able to walk back again. She had fears about drinking water because she was afraid the water would run out. She has been wheelchair bound for a while, got involved in physical therapy. Within the past few months apparently she was going twice a week. She was making significant progress and had a great outlook where she could be on the treadmill for 14 minutes, which was a major step forward for her. Then, with the COVID changes, the physical therapy stopped and that is when the anxiety and the fear seemed to show up. The son gave some noteworthy details. One includes that apparently yesterday at some point in the day she received Ativan. She started seeing things and then got into what he described as a "high" and was quite euphoric in her mood. Also yesterday evening the patient had a telephone conversation with her son that lasted an hour. The son noted that during that conversation the patient was happier and communicating in a better way than she has "in a long time." She expressed big ideas. She was somewhat demanding about how things were going to change at home. She made statements about kidnapping her grandchildren so that they could play cards. She was very outspoken, upbeat in how she talked. The son was not able to say she talked in a clearly pressured way, though she was very animated in her speech. The son states that this morning he talked to her and it was "horrible." She got back into making comments that she should not be in the hospital, she felt that she had COVID and was infecting everyone and was killing children. Currently, her only psychotropic medication is Cymbalta 20 mg a day. When I talked to the patient this evening, she had difficulty communicating. She said that she felt "disconnected." She was not able to tell me what she meant by that. She did make a comment that she was worried about this evening because she will not know how to use the telephone to dial her son to talk to her son. She made comments such as "I heard of something and can't get out;" "I got over my head and don't know what to do." When I asked her what she meant by these things she was not able to describe anything in particular. She did make one comment that she was taking her medications appropriately and now she cannot. The son did note that yesterday when she had the one hour conversation she also talked at length about all the different things that were happening in her medical care. She gave great detail. As best the son was able to tell, none of what she said was accurate or consistent with what has been happening in the hospital. I asked the son how she was doing at [facility]. He said that she was doing fine. She communicated normally. She was not having any problems with anxiety or mood difficulties. She was functioning normally and generally would take care of most things for herself. The patient did have a psychiatric hospitalization in [place] a number of years ago. She was delusional at that time. The son believed it related primarily to withdrawing from opioid pain medications and overmedication following problems she had with knee replacement surgery. She has not had any other mental health issues in this regard. MENTAL STATUS EXAM: Patient gave fair eye contact. She talked very slowly. There was latency in her responses. Often it would take a few seconds before she would start getting her words out. Sometimes she would make fragmented statements and not complete a sentence. She had a bewildered manner. Her mood was dysphoric. She was moderately distressed. On the cognitive exam, she knew it was February 2020. She knew it was after but she could not give me the specific date. When I asked her the day of the week she could not come up with that and when I said Sunday she seemed surprised. When I asked her to give me the days of the week she was able to do that without difficulty. When I asked her to give me the days of the week in reverse order, she difficulty organizing her thoughts to do that. She could give a few appropriate responses with some assistance. She knew she was at [facility] in [place]. ASSESSMENT: At this point, it seems reasonable that a diagnosis of depression is the most likely psychiatric issue to be addressed. She is only on 20 mg of Cymbalta, which likely is subtherapeutic. I will increase Cymbalta. There is a possibility that she may actually have been showing some breakthrough manic symptoms with her somewhat euphoric presentation last evening for a one-hour telephone call. Based on the son's presentation, she may have had pressured speech, flight of ideas, and some grandiosity in how she presented. Whether or not this also may have been a factor a few weeks back in her physical therapy where her mood brightened significantly remains to be seen. An alternative consideration would be that she struggles with depression and that she may, in fact, have some catatonic symptoms, which to some extent is how she seemed to present to me this evening. She had difficulty with communication and cognitive function. Ativan is a treatment for catatonia and it is at least possible that the dose she received yesterday may have led to a response of her quickly coming out of catatonic symptoms, that is not an uncommon presentation when a person is given a trial of Ativan for catatonia. At this point, I think it is reasonable to add Zyprexa in the picture. The aim of Zyprexa is to help augment her antidepressant. In addition, she may, in fact, have some delusional thinking that also has been seen at different times over the past few weeks with the mood problems she has been having. Zyprexa may also help clear some of her cognition if she has issues with encephalopathy. She may be an appropriate candidate for an admission to the mental health unit. I will recommend that Psychiatry will continue to follow and will refer her to Dr. Zhou for followup care. ROCÍO / YOANA: [id number] /
[2020-02-29 20:25] LABS: Glucose,Whole Blood 171 mg/dL (75-99)
--- NOTE | 2020-02-29 21:38 | P.PN ---
Subjective Progress Note Date: 02/29/20 Principal diagnosis: Stroke, severe confusion and paranoia, worsening dementia, hypertension, chronic neuropathy and dehydration. 74-year-old female one of Dr. sarkar's patient with past medical history of severe neuropathy was treated in the past for it and has done some physical therapy and medical management did well but it to relapse and couldn't go any further for physical therapy because of the COVID 19 epidemiology. Patient was in the emergency room on 02/07/2020 because of in usual sign and symptom of confusion and altered mental status at the time ended up going for CAT scan of the brain with no major abnormality compared to previous CAT scan from 2018 patient was treated for dehydration at the time and recommended to stay on aspirin and Plavix as secondary prevention for stroke and was sent home. She continue aspirin but with quit taking Lipitor because of muscle pain and joint pain. Patient brought to demurs department today because noticed by family for the lost week or so has been having more paranoia with worsening mental status she is concerned about the end of the world concern about choking when she eats running out of money running out of May paper concern about her family she had quite bit vague complain with severe generalized weakness and fatigue significant decreased mobility she quit eating and drinking in her symptom becomes a lot worse. Family brought her to the emergency department at [facility] today were was seen CAT scan of the brain showed slight ischemic change mostly in the white matter in the left popliteal to occipital area with sign similar to acute versus subacute stroke. The rest of her lab value and EKG didn't show any abnormality except slight elevation of liver function test and possible mild dehydration. According to family patient was taking duloxetine and Elavil apparently has been off elevated for the last few days with concern of side effect which did not help. She is taking the rest of her medication at this point with the exception of Lipitor. Patient was started on hydration we will consult neurology further testing including MRI of the brain with carotid ultrasound to be done while she is in to exclude any ischemic event carotid stenosis and other. 02/27: Patient is doing EEG today, pending MRI of the brain, still having slight and the status change. Neuro consultation was done but psych consult at this point still pending. Patient was seen Dr. Street vascular and with the significant stenosis on CTA of the neck nor reason for any intervention at this point according to him. 02/28: Patient has done well, EEG result came back with no sign of seizure activity, MRI of the brain showed small vessel disease with? Of small area of the consult. Patient still seen neurology will continue PTOT and would consult with the family for possible sending patient to rehab on Sunday or Sunday. Objective - Vital Signs Vital signs: Vital Signs Temp 98.4 F 02/29/20 02:07 Pulse 67 02/29/20 02:07 Resp 18 02/29/20 02:07 BP 152/70 02/29/20 02:07 Pulse Ox 97 02/29/20 02:07 Intake & Output 02/28/20 02/29/20 02/29/20 18:59 06:59 18:59 Intake Total 850 Balance 850 Intake: Intake, IV Titration 500 Amount Sodium Chloride 0.9% 1, 500 000 ml @ 100 mls/hr IV . Q10H [facility] Rx#:[id number] Oral 350 Other: Voiding Method Toilet Toilet # Voids 2 - Exam Review of systems: CONSTITUTIONAL: Well-developed no acute respiratory distress. EYES: No icterus sclerae, no conjunctivitis. EARS, NOSE, MOUTH, THROAT, and FACE: No sore throat, lymphadenopathy, carotid bruits or deformity. RESPIRATORY: No SOB cough or wheezes. CARDIOVASCULAR: No CP, Palpitation, PND, Orthopnea, or angina. GASTROINTESTINAL: No Abd pain, Nausea or vomiting, no Diarrhea or constipation, No GI Bleed, no distention or masses. GENITOURINARY: Negative for Hematuria or UTI, no kidney stones. INTEGUMENT/BREAST: Negative for any muscular injury with mild osteoarthritis.. HEMATOLOGIC/LYMPHATIC: Negative for bleed or purpura. MUSCULOSKELTAL: Negative for Myalgia or arthralgia. NEURLOGICAL: Significant change mental status with confusion. BEHAVIORAL/PSYCH: Mild dementia and acute psychosis. ENDOCRINE: Negative. Physical examinations: General Appearance: Alert, cooperative, no distress, appears stated age. Neck HEENT: Supple, no lymphadenopathy, no thyroid enlargement, no carotid bruits. Lungs: Clear to auscultation without crackles or wheezes no rhonchi, no deformity. Chest Wall: Chest wall normal expansion with deep inspiration no tenderness and no deformity was found on exam, no costochondral pain or discomfort. Heart: Regular rate and rhythm, S1, S2 normal, no murmur, rub or gallop. Back: Symmetric, no curvature, ROM normal, no CVA tenderness. Abdomen: Soft, non-tender, bowel sounds active all four quadrants, no masses, no organomegaly. Extremities: Extremities normal, atraumatic, no cyanosis or edema. Pulses: 2+ and symmetric. Skin: Skin color, texture, tugor normal, no rashes or lesions. Neurologic: Alert oriented with slight confusion, cranial nerves II through XII intact, no motor deficit, positive normal balance and gait. - Labs CBC & Chem 7: 02/29/20 06:10 02/29/20 06:10 Labs: Abnormal Lab Results - Last 24 Hours (Table) 02/28/20 02/28/20 02/29/20 Range/Units 12:27 20:21 07:00 POC Glucose (mg/dL) 154 H 137 H 168 H (75-99) mg/dL Assessment and Plan Assessment: 1 change of mental status: Most likely encephalopathy with possible combination of stroke versus subacute stroke versus metabolic encephalopathy in origin versus side effect of medication also to keep in mind the possibility of psych problems and patient's age is very high at this point as well. 2 CVA acute versus subacute: Patient be seen urology will lab before patient for an MRI of the brain and carotid ultrasound, keep watching patient on desk monitor for any abnormal arrhythmia. Reevaluate patient clinically and start PTOT at this point. 3 acute versus subacute psychosis with worsening confusion: We'll consult psychiatry I am going to hold Elavil for now but continue duloxetine awaiting for the final result of the MRI and the consultation from site. 4 mild dehydration: Continue patient hydration for now increase oral intake and encourage fluid intake as well. 5 hypertension: Has been on Norvasc and metoprolol resume both medication if possible specially if there is any sign of mild bradycardia to decrease the dose of Lopressor and try not to go higher than 50 mg to avoid any side effect of beta ben might cause severe bradycardia. With the blood pressure the weight is patient will benefit probably from other blood pressure medication less side effect and amlodipine and metoprolol one of the option to start hydralazine and if there is no side effect to ARB to start patient on valsartan and titrate dose higher to control the blood pressure. 6 type 2 diabetes: Has been on metformin 500 mg twice a day we will add Accu- Chek with sliding scales coverage if patient had any CAT scan with contrast hold metformin for now if needed can start the Prandin 1-2 mg twice a day. 7 severe neuropathy: Patient was on Elavil or amitriptyline doesn't look like she had any side effect or any trial of Lyrica or gabapentin in the past. 8 severe depression and mild anxiety and panic attack has been on the Loxitane not quite sure this is reaction or side effect may be switching the Loxitane to Wellbutrin or Effexor or might be more beneficial again will wait for the final psych consult and follow recommendation. 9 mild memory loss: Most likely combination of small vessel disease versus Alzheimer disease as a trial down the road will be beneficial to start patient on donepezil 10 mg a day or Rivastigmin 1.5 mg twice a day titrate dose higher if needed. Discharge planning: We will advance PTOT and the talk with the family for possible discharge to rehab.
[2020-03-01 05:30] VITALS: RESP 18; TEMP 98
[2020-03-01] MEDS: SODIUM CHLORIDE 0.9% 1,000 ML IV SCH ×2 (05:39→14:25)
[2020-03-01 07:07] LABS: Glucose,Whole Blood 140 mg/dL (75-99)
[2020-03-01] MEDS: INSULIN ASPART (NovoLOG) 100 UNIT/ML VIAL SQ SCH ×2 (07:17→12:59)
[2020-03-01] MEDS ORDERED: DULoxetine HCL 20 MG CAPSULE.DR PO SCH (09:00)
[2020-03-01] MEDS: FAMOTIDINE 20 MG TAB PO SCH (09:04)
[2020-03-01] MEDS: REPAGLINIDE 1 MG TAB PO SCH (09:04)
[2020-03-01] MEDS: amLODIPine 10 MG TAB PO SCH (09:04)
[2020-03-01] MEDS: METOPROLOL TARTRATE 50 MG TAB PO SCH (09:04)
[2020-03-01] MEDS: OLANZapine 2.5 MG TAB PO SCH (09:04)
[2020-03-01] MEDS: HEPARIN SODIUM,PORCINE 5,000 UNIT/ML 1 ML VIAL SQ SCH (09:05)
[2020-03-01 11:48] LABS: Glucose,Whole Blood 109 mg/dL (75-99)
--- NOTE | 2020-03-01 12:15 | P.PN ---
Subjective Progress Note Date: 03/01/20 74-year-old female one of Dr. sarkar's patient with past medical history of severe neuropathy was treated in the past for it and has done some physical therapy and medical management did well but it to relapse and couldn't go any further for physical therapy because of the COVID 19 epidemiology. Patient was in the emergency room on 02/07/2020 because of in usual sign and symptom of confusion and altered mental status at the time ended up going for CAT scan of the brain with no major abnormality compared to previous CAT scan from 2018 patient was treated for dehydration at the time and recommended to stay on aspirin and Plavix as secondary prevention for stroke and was sent home. She continue aspir in but with quit taking Lipitor because of muscle pain and joint pain. Patient brought to demurs department today because noticed by family for the lost week or so has been having more paranoia with worsening mental status she is concerned about the end of the world concern about choking when she eats running out of money running out of May paper concern about her family she had quite bit vague complain with severe generalized weakness and fatigue significant decreased mobility she quit eating and drinking in her symptom becomes a lot worse. Family brought her to the emergency department at [facility] today were was seen CAT scan of the brain showed slight ischemic change mostly in the white matter in the left popliteal to occipital area with sign similar to acute versus subacute stroke. The rest of her lab value and EKG didn't show any abnormality except slight elevation of liver function test and possible mild dehydration. According to family patient was taking duloxetine and Elavil apparently has been off elevated for the last few days with concern of side effect which did not help. She is taking the rest of her medication at this point with the exception of Lipitor. Patient was started on hydration we will consult neurology further testing including MRI of the brain with carotid ultrasound to be done while she is in to exclude any ischemic event carotid stenosis and other. 02/27: Patient is doing EEG today, pending MRI of the brain, still having slight and the status change. Neuro consultation was done but psych consult at this point still pending. Patient was seen Dr. Jad wilson and with the significant stenosis on CTA of the neck nor reason for any intervention at this point according to him. 02/28: Patient has done well, EEG result came back with no sign of seizure activity, MRI of the brain showed subacute infarct in the left parieto-occipital region. And small vessel disease chronic ischemic change. Patient still seen neurology will continue PTOT and would consult with the family for possible sending patient to rehab on Sunday or Sunday. 03/01: Patient has been followed by neurology with recommendations for high-dose statin, aspirin 81 mg and vascular consult for right ICA stenosis. Patient has been seen by psychiatry. Increase Cymbalta and added and Zyprexa. Patient is candidate for admission to the mental health unit. corporate communications manager/social work following for transfer to geriatric inpatient psychiatric unit. Patient is also been seen by Dr. Street with plan for follow-up as an outpatient. Patient has been afebrile, heart rate 66, blood pressure 161/77, pulse ox 97% on room air. Capillary blood glucose running between 109 and 171. Patient will be discharged to mental health unit once all arrangements are completed. Objective - Vital Signs Vital signs: Vital Signs Temp 98.0 F 03/01/20 02:23 Pulse 66 03/01/20 07:43 Resp 18 03/01/20 07:43 BP 161/77 03/01/20 02:23 Pulse Ox 97 03/01/20 02:23 Intake & Output 02/29/20 03/01/20 03/01/20 18:59 06:59 18:59 Intake Total 1600 Balance 1600 Intake: Intake, IV Titration 800 Amount Sodium Chloride 0.9% 1, 800 000 ml @ 100 mls/hr IV . Q10H [facility] Rx#:[id number] Oral 800 Other: Voiding Method Toilet Toilet Toilet # Voids 1 2 2 # Bowel Movements 1 1 1 - Exam Review of systems: CONSTITUTIONAL: Well-developed no acute respiratory distress. EYES: No icterus sclerae, no conjunctivitis. EARS, NOSE, MOUTH, THROAT, and FACE: No sore throat, lymphadenopathy, carotid bruits or deformity. RESPIRATORY: No SOB cough or wheezes. CARDIOVASCULAR: No CP, Palpitation, PND, Orthopnea, or angina. GASTROINTESTINAL: No Abd pain, Nausea or vomiting, no Diarrhea or constipation, No GI Bleed, no distention or masses. GENITOURINARY: Negative for Hematuria or UTI, no kidney stones. INTEGUMENT/BREAST: Negative for any muscular injury with mild osteoarthritis.. HEMATOLOGIC/LYMPHATIC: Negative for bleed or purpura. MUSCULOSKELTAL: Negative for Myalgia or arthralgia. NEURLOGICAL: Significant change mental status with confusion. BEHAVIORAL/PSYCH: Mild dementia and acute psychosis. Physical examinations: General Appearance: Alert, cooperative, no distress, appears stated age. Patient is resting comfortably on the edge of the bed. Neck HEENT: Supple, no lymphadenopathy, no thyroid enlargement, no carotid bruits. Lungs: Clear to auscultation without crackles or wheezes no rhonchi, no deformity. Chest Wall: Chest wall normal expansion with deep inspiration no tenderness and no deformity was found on exam, no costochondral pain or discomfort. Heart: Regular rate and rhythm, S1, S2 normal, no murmur, rub or gallop. Back: Symmetric, no curvature, ROM normal, no CVA tenderness. Abdomen: Soft, non-tender, bowel sounds active all four quadrants, no masses, no organomegaly. Extremities: Extremities normal, atraumatic, no cyanosis or edema. Pulses: 2+ and symmetric. Skin: Skin color, texture, tugor normal, no rashes or lesions. Neurologic: Alert oriented with slight confusion, cranial nerves II through XII intact, no motor deficit, positive normal balance and gait. - Labs CBC & Chem 7: 02/29/20 06:10 02/29/20 06:10 Labs: Abnormal Lab Results - Last 24 Hours (Table) 02/29/20 02/29/20 03/01/20 Range/Units 17:00 20:23 07:05 POC Glucose (mg/dL) 111 H 171 H 140 H (75-99) mg/dL 03/01/20 Range/Units 11:46 POC Glucose (mg/dL) 109 H (75-99) mg/dL Assessment and Plan Plan: 1. Mental status changes secondary to possible metabolic encephalopathy, paranoia and psychosis secondary to manic depression, catatonic symptoms. Psychiatric evaluation appreciated. Recommendations for inpatient geriatric psych unit. Cymbalta was increased and patient started on Zyprexa 2. 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 No hemorrhagic transformation. Continue full strength aspirin 320 3. Right internal carotid artery stenosis, stable. Consult with Dr. Street appreciated. To be monitored as an outpatient. 4. Dehydration. Encourage oral fluid intake. 5. Hypertension. Continue amlodipine 10 mg daily, Lopressor 100 mg twice daily. 6. Diabetes mellitus type 2. Patient is currently on Prandin and will be transitioned to metformin at discharge 500 mg twice daily. Continue NovoLog sliding scale. 7. Diabetic neuropathy. Discontinue Elavil. 8. Recurrent depression and panic disorder. Continue Cymbalta. 9. Memory loss most likely secondary to small vessel disease, vascular dementia. Discharge planning: Inpatient geriatric psychiatric unit. Impression and plan of care have been directed as dictated by the signing physician. Xiomara Hamilton nurse practitioner acting as scribe for signing physician.
[2020-03-01] MEDS: ASPIRIN 325 MG TAB PO SCH (14:25)
--- NOTE | 2020-03-01 14:51 | PN ---
PROGRESS NOTE A 74-year-old female, she was seen on consultation. Patient has a history of confusion and a stroke workup showed CT of the carotid shows right side 70%, left side is 50%. No history of TIA or CVA. This patient was seen by Psychiatry and under care at most likely she will be inpatient for psych evaluation. At this point, patient is stable from vascular point of view. She can be followed up when she is discharged as an outpatient at my office. MMODL / IJN: [id number] /
[2020-03-01 15:03] VITALS: BP 126/78; PULSE 63
[2020-03-01 16:56] LABS: Glucose,Whole Blood 113 mg/dL (75-99)
[2020-03-01] MEDS ORDERED: ATORVASTATIN 40 MG TAB PO SCH (21:00)
--- NOTE | 2020-03-02 07:32 | P.DS ---
Providers Date of admission: 02/28/20 14:37 Expected date of discharge: 03/01/20 Attending physician: Roberto Judge Consults: 02/27/20 14:35 Consult Physician Routine Consulting Provider: Eleni Marte Consult Reason/Comments: ams Do you want consulting provider notified?: Yes 02/27/20 21:13 Consult Physician Routine Consulting Provider: Shane Miller Consult Reason/Comments: acute psychosis Do you want consulting provider notified?: Yes 02/28/20 07:27 Consult Physician Routine Consulting Provider: Rigoberto Street Consult Reason/Comments: Carotid Stenosis Do you want consulting provider notified?: Yes Primary care physician: [facility] Course: 74-year-old female one of Dr. Eng's patient with past medical history of severe neuropathy was treated in the past for it and has done some physical therapy and medical management did well but it to relapse and couldn't go any further for physical therapy because of the COVID 19 epidemiology. Patient was in the emergency room on 02/07/2020 because of in usual sign and symptom of confusion and altered mental status at the time ended up going for CAT scan of the brain with no major abnormality compared to previous CAT scan from 2018 patient was treated for dehydration at the time and recommended to stay on aspirin and Plavix as secondary prevention for stroke and was sent home. She continue aspirin but with quit taking Lipitor because of muscle pain and joint pain. Patient brought to demurs department today because noticed by family for the lost week or so has been having more paranoia with worsening mental status she is concerned about the end of the world concern about choking when she eats running out of money running out of May paper concern about her family she had quite bit vague complain with severe generalized weakness and fatigue significant decreased mobility she quit eating and drinking in her symptom becomes a lot worse. Family brought her to the emergency department at [facility] today were was seen CAT scan of the brain showed slight ischemic change mostly in the white matter in the left popliteal to occipital area with sign similar to acute versus subacute stroke. The rest of her lab value and EKG didn't show any abnormality except slight elevation of liver function test and possible mild dehydration. According to family patient was taking duloxetine and Elavil apparently has been off elevated for the last few days with concern of side effect which did not help. She is taking the rest of her medication at this point with the exception of Lipitor. Patient was started on hydration we will consult neurology further testing including MRI of the brain with carotid ultrasound to be done while she is in to exclude any ischemic event carotid stenosis and other. 02/27: Patient is doing EEG today, pending MRI of the brain, still having slight and the status change. Neuro consultation was done but psych consult at this point still pending. Patient was seen Dr. Street vascular and with the significant stenosis on CTA of the neck nor reason for any intervention at this point according to him. 02/28: Patient has done well, EEG result came back with no sign of seizure activity, MRI of the brain showed small vessel disease with? Of small area of the consult. Patient still seen neurology will continue PTOT and would consult with the family for possible sending patient to rehab on Sunday or Sunday. 03/01: Patient has been followed by neurology with recommendations for high-dose statin, aspirin 81 mg and vascular consult for right ICA stenosis. Patient has been seen by psychiatry. Giuseppe Villegas and laverne and Tiffanie. Patient is candidate for admission to the mental health unit. tax accounting manager/social work following for transfer to geriatric inpatient psychiatric unit. Patient is also been seen by Dr. Street with plan for follow-up as an outpatient. Patient has been afebrile, heart rate 66, blood pressure 161/77, pulse ox 97% on room air. Capillary blood glucose running between 109 and 171. Patient will be discharged to mental health unit once all arrangements are completed. Patient was transferred to the [facility] geriatric unit. Discharge diagnoses: 1. Mental status changes secondary to possible metabolic encephalopathy, paranoia and psychosis secondary to manic depression, catatonic symptoms. 2. Subacute ischemic stroke involving the left hemisphere in watershed territory between left MCA/TICKET CLERK. 3. Right internal carotid artery stenosis, stable. 4. Dehydration. 5. Hypertension. 6. Diabetes mellitus type 2. 7. Diabetic neuropathy. 8. Recurrent depression and panic disorder. 9. Memory loss most likely secondary to small vessel disease, vascular dementia. Discharge planning: [facility] psychiatric unit. Impression and plan of care have been directed as dictated by the signing physician. Xiomara Hamilton nurse practitioner acting as scribe for signing physician. Patient Condition at Discharge: Good Plan - Discharge Summary New Discharge Prescriptions: New OLANZapine [ZyPREXA] 2.5 mg PO TID #90 tab Aspirin EC [Ecotrin Low Dose] 81 mg PO DAILY #30 tablet. Atorvastatin [Lipitor] 40 mg PO HS #30 tablet Continue metFORMIN HCL [Glucophage] 500 mg PO BID amLODIPine [Norvasc] 10 mg PO DAILY Metoprolol Tartrate [Lopressor] 100 mg PO BID Changed DULoxetine HCL [Cymbalta] 40 mg PO DAILY #60 cap Discontinued Amitriptyline HCl [Elavil] 25 mg PO HS Discharge Medication List amLODIPine [Norvasc] 10 mg PO DAILY 02/07/20 [History] metFORMIN HCL [Glucophage] 500 mg PO BID 02/07/20 [History] Metoprolol Tartrate [Lopressor] 100 mg PO BID 02/27/20 [History] Aspirin EC [Ecotrin Low Dose] 81 mg PO DAILY #30 tablet. 03/01/20 [Rx] Atorvastatin [Lipitor] 40 mg PO HS #30 tablet 03/01/20 [Rx] DULoxetine HCL [Cymbalta] 40 mg PO DAILY #60 cap 03/01/20 [Rx] OLANZapine [ZyPREXA] 2.5 mg PO TID #90 tab 03/01/20 [Rx] Follow up Appointment(s)/Referral(s): Shawanda Saba MD [STAFF PHYSICIAN] - 2 Weeks (subacute CVA) Leobardo Heart MD [Primary Care Provider] - 1 Week (after discharge from [facility]. office not answering at time of discharge. Please call to make appointment) Rigoberto Street MD [STAFF PHYSICIAN] - 4 Weeks (carotid stenosis) Discharge Disposition: TRANSFER TO PSYCH HOSP/UNIT
[2020-03-02] MEDS ORDERED: ASPIRIN 81 MG PO SCH (09:00)
== END 2020-03-01 17:38 | DRG 70 ==
LOC: EC 11:01 → 4SSUR 14:34 → OBSVTOIN 02-28 14:37
PROVIDERS: ADMIT Internal Medicine Geriatric Medicine; ATTEND Internal Medicine Geriatric Medicine
DX: G93.41 Metabolic encephalopathy (principal); I63.9 Cerebral infarction, unspecified; F31.2 Bipolar disorder, current episode manic severe with psychotic features; F01.50 Vascular dementia, unspecified severity, without behavioral disturbance, psychotic disturbance, mood disturbance, and anxiety; F41.0 Panic disorder [episodic paroxysmal anxiety]; I10 Essential (primary) hypertension; I65.21 Occlusion and stenosis of right carotid artery; M06.9 Rheumatoid arthritis, unspecified; M79.7 Fibromyalgia; D72.829 Elevated white blood cell count, unspecified; E11.40 Type 2 diabetes mellitus with diabetic neuropathy, unspecified; E11.51 Type 2 diabetes mellitus with diabetic peripheral angiopathy without gangrene; E78.5 Hyperlipidemia, unspecified; E86.0 Dehydration; Z79.82 Long term (current) use of aspirin; Z79.84 Long term (current) use of oral hypoglycemic drugs; Z79.899 Other long term (current) drug therapy; M10.9 Gout, unspecified; Z82.3 Family history of stroke; Z96.659 Presence of unspecified artificial knee joint; Z99.3 Dependence on wheelchair; Z88.5 Allergy status to narcotic agent; Z88.8 Allergy status to other drugs, medicaments and biological substances; Z91.041 Radiographic dye allergy status; Z98.51 Tubal ligation status
CPT/HCPCS: 36415; 70450; 70496; 70498; 70551; 71046; 80053; 80061; 81001; 82607; 82746; 83036; 84443; 84484; 85025; 85610; 85730; 93005; 93306; 95816; 96360; 99285

== ENCOUNTER 2020-06-23 10:10 | Inpatient (IN) | payer MEDICARE, BC ==
[2020-06-23] MEDS ORDERED: PANTOPRAZOLE 40 MG/10 ML VIAL IVP STA (10:33)
[2020-06-23] MEDS ORDERED: SODIUM CHLORIDE 0.9% 1,000 ML IV STA (10:33)
--- NOTE | 2020-06-23 10:40 | ED ---
General Adult HPI - General Chief complaint: Fall Stated complaint: Fall Time Seen by Provider: 06/23/20 10:21 Source: patient, family, RN notes reviewed, old records reviewed Mode of arrival: wheelchair Limitations: no limitations - History of Present Illness Initial comments: Patient is a 75-year-old female with a history of vascular dementia who presents emergency department today after falling while getting ready to go to a neurology appointment today. She lives with her son states that she was trying to walk towards the edge of her bed, lost her balance and fell striking the right side of her head on the wooden beam of her bedpost. Patient signed reports he was nolossofconsciousness.Therewasevidenceofaspiration.Patient's son also states that he is concerned because he's noticed that she's been complaining of abdominal cramping and has reported some dark black appearing stools. Patient is on baby aspirin. Patient's son states that she's been more weak and tired for the past week. Patient does have a history of PTSD floresita last hospital admission she was transferred to a geriatric psychiatric unit for 6 weeks which caused her severe anxiety and PTSD. Patient's son states her last hospital admission she was here to be evaluated for strokes and was told that there is nothing organic the wrong causing these and then was court ordered to the geriatric psych unit. Patient's son reports that there was evidence of small vascular strokes on the area of her brain that controls motion and anxiety. - Related Data Home Medications Medication Instructions Recorded Confirmed Metoprolol Tartrate [Lopressor] 100 mg PO BID 02/27/20 06/23/20 Atorvastatin [Lipitor] 80 mg PO HS 06/23/20 06/23/20 LORazepam [Ativan] 0.5 mg PO BID 06/23/20 06/23/20 Repaglinide [Prandin] 1 mg PO AC-BID 06/23/20 06/23/20 Sertraline [Zoloft] 150 mg PO DAILY 06/23/20 06/23/20 Previous Rx's Medication Instructions Recorded Aspirin EC [Ecotrin Low Dose] 81 mg PO DAILY #30 tablet. 03/01/20 Allergies Allergy/AdvReac Type Severity Reaction Status Date / Time dicyclomine [From Bentyl] Allergy Unknown Verified 06/23/20 10:57 grass pollen Allergy Unknown Verified 06/23/20 10:57 Iodinated Contrast Media Allergy Unknown Verified 06/23/20 10:57 [Iodinated Contrast- Oral and IV Dye] mold Allergy Unknown Verified 06/23/20 10:57 oxycodone Allergy Unknown Verified 06/23/20 10:57 povidone-iodine Allergy Unknown Verified 06/23/20 10:57 [From Betadine] propoxyphene Allergy Unknown Verified 06/23/20 10:57 [From Darvocet-N] soap [From Betadine] Allergy Unknown Verified 06/23/20 10:57 Review of Systems ROS Statement: Those systems with pertinent positive or pertinent negative responses have been documented in the HPI. ROS Other: All systems not noted in ROS Statement are negative. Past Medical History Past Medical History: Fibromyalgia, Hypertension, Rheumatoid Arthritis (RA) Additional Past Medical History / Comment(s): GOUT, confusion History of Any Multi-Drug Resistant Organisms: None Reported Past Surgical History: Appendectomy, Section, Orthopedic Surgery, Tonsillectomy, Tubal Ligation Past Psychological History: Anxiety, Depression, Panic Disorder Smoking Status: Never smoker Past Alcohol Use History: None Reported Past Drug Use History: None Reported - Past Family History Father History Unknown: Yes General Exam - General Exam Comments Initial Comments: This is a 75-year-old female. Patient appears anxious, repeating her words and mumbling. According to son this is her baseline. Limitations: no limitations General appearance: alert, in no apparent distress Head exam: Present: atraumatic, normocephalic. Absent: normal inspection (Patient is a 1 inch laceration over the left parietal scalp) Eye exam: Present: normal appearance, PERRL, EOMI. Absent: scleral icterus, conjunctival injection, periorbital swelling ENT exam: Present: normal exam, mucous membranes moist Neck exam: Present: other (Pt placed in C collar.). Absent: normal inspection, tenderness, meningismus, lymphadenopathy Respiratory exam: Present: normal lung sounds bilaterally. Absent: respiratory distress, wheezes, rales, rhonchi, stridor Cardiovascular Exam: Present: regular rate, normal rhythm, normal heart sounds. Absent: systolic murmur, diastolic murmur, rubs, gallop, clicks GI/Abdominal exam: Present: soft, normal bowel sounds. Absent: distended, tenderness, guarding, rebound, rigid Extremities exam: Present: normal inspection, full ROM, normal capillary refill. Absent: tenderness, pedal edema, joint swelling, calf tenderness Back exam: Present: normal inspection Neurological exam: Present: alert, altered. Absent: oriented X3, CN II-XII intact Psychiatric exam: Present: normal affect, normal mood Course Vital Signs 06/23/20 06/23/20 06/23/20 10:14 11:39 11:51 Temperature 97.8 F Pulse Rate 63 52 L 53 L Respiratory 16 18 16 Rate Blood Pressure 118/76 145/82 145/82 O2 Sat by Pulse 98 97 97 Oximetry 06/23/20 06/23/20 12:00 12:30 Temperature Pulse Rate 56 L 64 Respiratory 16 16 Rate Blood Pressure 145/82 149/68 O2 Sat by Pulse 97 Oximetry Procedures - Laceration Laceration #1 Site: scalp Size (cm): 3 Description: linear Depth: simple, single layer Pre-repair: wound explored, irrigated extensively Type of Sutures: other (gokul) Size of Sutures: other Number of Sutures: 2 Patient Tolerated Procedure: well, no complications - Rectal Disimpaction Consent Obtained: verbal consent Indication: fecal impaction Procedural Sedation: No Sedation/Analgesia: none Technique: manual disimpaction with gloved finger Result: significant stool output Complications: none Patient Tolerated Procedure: well, no complications Medical Decision Making - Medical Decision Making Patient is a 75-year-old female who presents emergency department today for concern for trip and fall. Her son also notes that Patient had been complaining of abdominal pain and cramping and had dark stools. She is not on a blood thinners besides aspirin at this time. She said history of strokes causing significant vascular dementia, anxiety and PTSD. Patient at this time has no acute neurological deficits and is at baseline according to son. She did have a laceration over the left scalp that was closed with 2 gokul. Due to the abdominal cramping and dark stools a fecal occult was completed and is positive. KUB shows evidence of fecal impaction. Patient will have enema. Her hemoglobin has dropped from initials were 16,13 and now is 11. She otherwise appears medically stable. Patient admitted at this time for general weakness, falls and concern for GI bleed with repeat CBCs. Discussed the case with Dr. thorpe. We'll discuss the case with sounds physician. - Lab Data Result diagrams: 06/23/20 10:52 06/23/20 10:52 Lab Results 06/23/20 06/23/20 06/23/20 Range/Units 10:52 10:52 10:52 WBC 8.4 (3.8-10.6) k/uL RBC 4.06 (3.80-5.40) m/uL Hgb 11.9 (11.4-16.0) gm/dL Hct 37.2 (34.0-46.0) % MCV 91.6 (80.0-100.0) fL MCH 29.4 (25.0-35.0) pg MCHC 32.1 (31.0-37.0) g/dL RDW 13.7 (11.5-15.5) % Plt Count 273 (150-450) k/uL Neutrophils % 72 % Lymphocytes % 15 % Monocytes % 5 % Eosinophils % 5 % Basophils % 1 % Neutrophils # 6.1 (1.3-7.7) k/uL Lymphocytes # 1.3 (1.0-4.8) k/uL Monocytes # 0.4 (0-1.0) k/uL Eosinophils # 0.4 (0-0.7) k/uL Basophils # 0.1 (0-0.2) k/uL APTT 23.2 (22.0-30.0) sec Sodium 138 (137-145) mmol/L Potassium 3.3 L (3.5-5.1) mmol/L Chloride 102 (98-107) mmol/L Carbon Dioxide 28 (22-30) mmol/L Anion Gap 8 mmol/L BUN 20 H (7-17) mg/dL Creatinine 0.70 (0.52-1.04) mg/dL Est GFR (CKD-EPI)AfAm >90 (>60 ml/min/1.73 sqM) Est GFR (CKD-EPI)NonAf 86 (>60 ml/min/1.73 sqM) Glucose 87 (74-99) mg/dL Plasma Lactic Acid Archie (0.7-2.0) mmol/L Calcium 9.1 (8.4-10.2) mg/dL Total Bilirubin 0.9 (0.2-1.3) mg/dL AST 45 H (14-36) U/L ALT 32 (4-34) U/L Alkaline Phosphatase 151 H (38-126) U/L Total Protein 6.1 L (6.3-8.2) g/dL Albumin 3.6 (3.5-5.0) g/dL Urine Color Urine Appearance (Clear) Urine pH (5.0-8.0) Ur Specific Turner (1.001-1.035) Urine Protein (Negative) Urine Glucose (UA) (Negative) Urine Ketones (Negative) Urine Blood (Negative) Urine Nitrite (Negative) Urine Bilirubin (Negative) Urine Urobilinogen (<2.0) mg/dL Ur Leukocyte Esterase (Negative) Urine RBC (0-5) /hpf Urine WBC (0-5) /hpf Calcium Oxalate Crystal (None) /hpf Urine Bacteria (None) /hpf Hyaline Casts (0-2) /lpf Urine Mucus (None) /hpf Stool Occult Blood (Negative) Blood Type Blood Type Recheck Bld Type Recheck Status Antibody Screen Spec Expiration Date 06/23/20 06/23/20 06/23/20 Range/Units 10:52 10:52 11:49 WBC (3.8-10.6) k/uL RBC (3.80-5.40) m/uL Hgb (11.4-16.0) gm/dL Hct (34.0-46.0) % MCV (80.0-100.0) fL MCH (25.0-35.0) pg MCHC (31.0-37.0) g/dL RDW (11.5-15.5) % Plt Count (150-450) k/uL Neutrophils % % Lymphocytes % % Monocytes % % Eosinophils % % Basophils % % Neutrophils # (1.3-7.7) k/uL Lymphocytes # (1.0-4.8) k/uL Monocytes # (0-1.0) k/uL Eosinophils # (0-0.7) k/uL Basophils # (0-0.2) k/uL APTT (22.0-30.0) sec Sodium (137-145) mmol/L Potassium (3.5-5.1) mmol/L Chloride (98-107) mmol/L Carbon Dioxide (22-30) mmol/L Anion Gap mmol/L BUN (7-17) mg/dL Creatinine (0.52-1.04) mg/dL Est GFR (CKD-EPI)AfAm (>60 ml/min/1.73 sqM) Est GFR (CKD-EPI)NonAf (>60 ml/min/1.73 sqM) Glucose (74-99) mg/dL Plasma Lactic Acid Archie 1.0 (0.7-2.0) mmol/L Calcium (8.4-10.2) mg/dL Total Bilirubin (0.2-1.3) mg/dL AST (14-36) U/L ALT (4-34) U/L Alkaline Phosphatase (38-126) U/L Total Protein (6.3-8.2) g/dL Albumin (3.5-5.0) g/dL Urine Color Yellow Urine Appearance Clear (Clear) Urine pH 6.5 (5.0-8.0) Ur Specific Turner 1.020 (1.001-1.035) Urine Protein 1+ H (Negative) Urine Glucose (UA) Negative (Negative) Urine Ketones Negative (Negative) Urine Blood Negative (Negative) Urine Nitrite Negative (Negative) Urine Bilirubin Negative (Negative) Urine Urobilinogen 3.0 (<2.0) mg/dL Ur Leukocyte Esterase Negative (Negative) Urine RBC 1 (0-5) /hpf Urine WBC 1 (0-5) /hpf Calcium Oxalate Crystal Occasional H (None) /hpf Urine Bacteria Rare H (None) /hpf Hyaline Casts 1 (0-2) /lpf Urine Mucus Occasional H (None) /hpf Stool Occult Blood (Negative) Blood Type A Negative Blood Type Recheck No Previous Record Bld Type Recheck Status CABO Indicated Antibody Screen NEGATIVE Spec Expiration Date 06/26/2020 - 235106/23/20 Range/Units 11:50 WBC (3.8-10.6) k/uL RBC (3.80-5.40) m/uL Hgb (11.4-16.0) gm/dL Hct (34.0-46.0) % MCV (80.0-100.0) fL MCH (25.0-35.0) pg MCHC (31.0-37.0) g/dL RDW (11.5-15.5) % Plt Count (150-450) k/uL Neutrophils % % Lymphocytes % % Monocytes % % Eosinophils % % Basophils % % Neutrophils # (1.3-7.7) k/uL Lymphocytes # (1.0-4.8) k/uL Monocytes # (0-1.0) k/uL Eosinophils # (0-0.7) k/uL Basophils # (0-0.2) k/uL APTT (22.0-30.0) sec Sodium (137-145) mmol/L Potassium (3.5-5.1) mmol/L Chloride (98-107) mmol/L Carbon Dioxide (22-30) mmol/L Anion Gap mmol/L BUN (7-17) mg/dL Creatinine (0.52-1.04) mg/dL Est GFR (CKD-EPI)AfAm (>60 ml/min/1.73 sqM) Est GFR (CKD-EPI)NonAf (>60 ml/min/1.73 sqM) Glucose (74-99) mg/dL Plasma Lactic Acid Archie (0.7-2.0) mmol/L Calcium (8.4-10.2) mg/dL Total Bilirubin (0.2-1.3) mg/dL AST (14-36) U/L ALT (4-34) U/L Alkaline Phosphatase (38-126) U/L Total Protein (6.3-8.2) g/dL Albumin (3.5-5.0) g/dL Urine Color Urine Appearance (Clear) Urine pH (5.0-8.0) Ur Specific Turner (1.001-1.035) Urine Protein (Negative) Urine Glucose (UA) (Negative) Urine Ketones (Negative) Urine Blood (Negative) Urine Nitrite (Negative) Urine Bilirubin (Negative) Urine Urobilinogen (<2.0) mg/dL Ur Leukocyte Esterase (Negative) Urine RBC (0-5) /hpf Urine WBC (0-5) /hpf Calcium Oxalate Crystal (None) /hpf Urine Bacteria (None) /hpf Hyaline Casts (0-2) /lpf Urine Mucus (None) /hpf Stool Occult Blood Positive H (Negative) Blood Type Blood Type Recheck Bld Type Recheck Status Antibody Screen Spec Expiration Date - Radiology Data Radiology results: report reviewed CT shows sinus bradycardia ST and T-wave abnormalities concerning for lateral ischemia. Abnormal EKG. Ventricular rate 55 bpm. Chest x-ray shows no acute process seen. KUB shows prominent stool distending the rectum up to 6.87 m wide. Correlate for fecal impaction. I instructed bowel gas pattern. Was 172 ms. QRS duration is 86 no seconds. QT QTc is 452/432 ms. Disposition Clinical Impression: GI bleed, Fall, Fecal impaction, Weakness, Scalp laceration Disposition: ADMITTED IP TO THIS HOSP Condition: Stable Is patient prescribed a controlled substance at d/c from ED?: No Referrals: Titus Herbert MD [Primary Care Provider] - 1-2 days Time of Disposition: 13:21
[2020-06-23 11:17] LABS: Basophils # (A) 0.1 k/uL (0-0.2); Basophils % (A) 1 %; Eosinophils # (A) 0.4 k/uL (0-0.7); Eosinophils % (A) 5 %; HCT 37.2 % (34.0-46.0); HGB 11.9 gm/dL (11.4-16.0); Lymphocytes # (A) 1.3 k/uL (1.0-4.8); Lymphocytes % (A) 15 %; MCH 29.4 pg (25.0-35.0); MCHC 32.1 g/dL (31.0-37.0); MCV 91.6 fL (80.0-100.0); Mean Platelet Volume 7.5; Monocytes # (A) 0.4 k/uL (0-1.0); Monocytes % (A) 5 %; Neutrophils # (A) 6.1 k/uL (1.3-7.7); Neutrophils % (A) 72 %; Platelet Count 273 k/uL (150-450); RBC 4.06 m/uL (3.80-5.40); RDW 13.7 % (11.5-15.5); WBC 8.4 k/uL (3.8-10.6)
[2020-06-23 11:29] LABS: ALT 32 U/L (4-34); AST 45 U/L (14-36); African American GFR (CKD) >90 (>60 ml/min/1.73 sqM); Albumin 3.6 g/dL (3.5-5.0); Alkaline Phosphatase 151 U/L (38-126); Anion Gap 8 mmol/L; Blood Urea Nitrogen 20 mg/dL (7-17); Calcium 9.1 mg/dL (8.4-10.2); Carbon Dioxide 28 mmol/L (22-30); Chloride 102 mmol/L (98-107); Glucose 87 mg/dL (74-99); Non-African American GFR(CKD) 86 (>60 ml/min/1.73 sqM); Potassium 3.3 mmol/L (3.5-5.1); Sodium 138 mmol/L (137-145); Total Bilirubin 0.9 mg/dL (0.2-1.3); Total Protein 6.1 g/dL (6.3-8.2)
--- NOTE | 2020-06-23 11:50 | CT ---
EXAMINATION TYPE: CT brain cspine wo con DATE OF EXAM: 06/23/2020 COMPARISON: CT brain February 27, 2020. CT cervical spine January 13, 2018 HISTORY: Fall, confusion headache and neck pain. CT DLP: 1255.5 mGycm. Automated Exposure Control for Dose Reduction was Utilized. TECHNIQUE: CT scan of the head and cervical spine are performed without contrast. FINDINGS: There is no acute intracranial hemorrhage or midline shift identified. Mild ventricular a nd sulcal prominence. Low-attenuation in the deep and periventricular white matter. Interval progress ion of infarct left posterior watershed now chronic in age. Hyperostosis frontalis. The calvarium is intact. The globes are intact and the visualized sinuses are clear. Cervical spine is visualized in its entirety from C1 through upper thoracic levels and demonstrates s table alignment with reversal of normal without evidence of acute fracture or dislocation. Preverteb ral soft tissue appears within normal limits. The C1-C2 articulation is within normal limits on the coronal images. Vertebral body heights are maintained. Slight grade 1 anterolisthesis C2 on C3, C3 o n C4, C4 and C5 redemonstrated. Moderate disc space narrowing and mild to moderate anterior spurring C5-C6 and C6-C7 levels with [id number] disc space narrowing and more prominent moderate to sandip re focal spur anterior C7-T1 level redemonstrated. Spinal canal grossly preserved. Review of axial im ages show multilevel uncovertebral facet degenerative changes contributing to multilevel bilateral ne ural foraminal narrowing. There is redemonstration of greater than 1.0 cm right thyroid nodule lower pole level that warrants f ollow-up if not known finding. No pneumothorax in the lung apices. IMPRESSION: 1. There is no acute fracture or dislocation evident in the cervical spine. Stable alignment and mult ilevel spondylolisthesis and degenerative changes. Roughly 3 cm right thyroid nodule redemonstrated. Nonemergent follow-up advised. 2. No acute intracranial hemorrhage or midline shift is seen. Now chronic infarct left posterior wate rshed distribution.
[2020-06-23 12:27] LABS: Appearance,Urine Clear (Clear); Bacteria,Urine Rare /hpf; Bilirubin,Urine Negative (Negative); Blood,Urine Negative (Negative); Calcium Oxalate Crystals,Urine Occasional /hpf; Color,Urine Yellow; Glucose,Urine (UA) Negative (Negative); Hyaline Casts,Urine 1 /lpf (0-2); Ketones,Urine Negative (Negative); Leukocyte Esterase,Urine Negative (Negative); Mucus,Urine Occasional /hpf; Nitrite,Urine Negative (Negative); PH, Urine 6.5 (5.0-8.0); Protein,Urine 1+ (Negative); RBC,Urine 1 /hpf (0-5); WBC,Urine 1 /hpf (0-5)
--- NOTE | 2020-06-23 12:45 | XR ---
EXAMINATION TYPE: XR chest 2V DATE OF EXAM: 06/23/2020 COMPARISON: 02/27/2020 HISTORY: 75-year-old female with pain and weakness TECHNIQUE: AP and lateral views FINDINGS: Heart normal size. Aorta within normal limits. Mild interstitial prominence appears chronic. Slight a symmetric elevation right hemidiaphragm is unchanged. No consolidation or pleural effusion. IMPRESSION: No acute process seen.
--- NOTE | 2020-06-23 12:46 | XR ---
EXAMINATION TYPE: XR KUB DATE OF EXAM: 06/23/2020 Comparison: None Clinical History: 75-year-old female pain, weakness Findings: Supine imaging limited for assessment of free air. There is prominent stool within the rectum which is distended up to 6.8 cm wide. Otherwise, no signif icant stool burden. No dilated small bowel loops. No suspicious calcifications seen. Impression: Prominent stool distending the rectum up to 6.8 cm wide. Correlate to exclude mild fecal impaction. N onobstructive bowel gas pattern.
[2020-06-23] MEDS ORDERED: DOCUSATE 283 MG/5 ML ENEMA RECTAL STA (13:13)
[2020-06-23] MEDS ORDERED: IBUPROFEN 400 MG TAB PO PRN (13:27)
[2020-06-23] MEDS ORDERED: ONDANSETRON 4 MG/2 ML VIAL IVP PRN ×2 (13:27→15:35)
[2020-06-23] MEDS ORDERED: ACETAMINOPHEN TAB 325 MG TAB PO PRN (13:27)
[2020-06-23] MEDS ORDERED: MORPHINE SULFATE 4 MG/ML SYRINGE IV PRN (13:27)
[2020-06-23] MEDS ORDERED: NALOXONE 0.4 MG/ML 1 ML VIAL IV PRN ×2 (13:27→15:35)
--- NOTE | 2020-06-23 16:32 | P.HPIM ---
History of Present Illness H&P Date: 06/23/20 Chief Complaint: syncope 75-year-old woman with past medical history vascular dementia, HTN, HLD, DM 2, PTSD presented after syncopal episode in which she had. Patient was lying in bed in no she got out of bed, she had an episode where she fell and hit the side of her head on the edge of the bed. Patient is not a very good historian and the story is taken from chart review. Patient does report having had a bout of constipation recently, but received an enema in the ER and has been having multiple liquidy stools. She reports headache. Otherwise, she denies any other complaints at this time including fevers, chills, nausea, vomiting, abdominal pain, chest pain, syncope, palpitations, dyspnea, dysuria, numbness. On arrival patient is afebrile, 149/68, heart rate 64, 95% on room air. CBC is unremarkable. Chemistries are unremarkable. LFTs were unremarkable. Coagulation profile was unremarkable. UA was significant for 1+ protein and occasional calcium oxalate crystals. FOBT was positive. EKG showed sinus bradycardia as well as inferior and lateral T-wave inversions which were the same as prior EKG in February 2020. Echocardiogram in February [address] was negative for intracranial bleed, but did show old watershed infarction the posterior distribution of left side. Chest x-ray did not show any acute cardiopulmonary pathology. KUB showed moderate stool burden dilating the rectum. Review of Systems All Systems reviewed and pertinent positives and negatives noted in HPI, all other symptoms are negative Past Medical History Past Medical History: CVA/TIA, Dementia, Fibromyalgia, Hyperlipidemia, Hypertension, Rheumatoid Arthritis (RA), Vascular Disorder Additional Past Medical History / Comment(s): 02/28/20 pt admitted to [facility] for m ental status changes possible d/t metabolic encephalopathy/paranoia/psychosi 2ndary to manic depression/catatonic symptoms and CVA-pt went to [facility] for psychiatric admission and spent 6 weeks. Other hx: Vascular dementia with memory impariment/confusion, neuropathy pt states in bilateral hands, pt states since CVA she ambulates slower d/t unsteady gait, R internal caratid artery disease, NIDDM type II, gout, IBS, benign colon polyps History of Any Multi-Drug Resistant Organisms: None Reported Past Surgical History: Appendectomy, Section, Orthopedic Surgery, Tonsillectomy, Tubal Ligation Additional Past Surgical History / Comment(s): Total L knee arthroplasty, L ankle tendon lengthening, colonoscopy/polypectomy Past Anesthesia/Blood Transfusion Reactions: No Reported Reaction Smoking Status: Never smoker - Past Family History Father History Unknown: Yes Mother History Unknown: Yes Medications and Allergies Home Medications Medication Instructions Recorded Confirmed Type Metoprolol Tartrate [Lopressor] 100 mg PO BID 02/27/20 06/23/20 History Aspirin EC [Ecotrin Low Dose] 81 mg PO DAILY #30 tablet. 03/01/20 06/23/20 Rx Atorvastatin [Lipitor] 80 mg PO HS 06/23/20 06/23/20 History LORazepam [Ativan] 0.5 mg PO BID 06/23/20 06/23/20 History Repaglinide [Prandin] 1 mg PO AC-BID 06/23/20 06/23/20 History Sertraline [Zoloft] 150 mg PO DAILY 06/23/20 06/23/20 History Allergies Allergy/AdvReac Type Severity Reaction Status Date / Time dicyclomine [From Bentyl] Allergy Unknown Verified 06/23/20 10:57 grass pollen Allergy Unknown Verified 06/23/20 10:57 Iodinated Contrast Media Allergy Unknown Verified 06/23/20 10:57 [Iodinated Contrast- Oral and IV Dye] mold Allergy Unknown Verified 06/23/20 10:57 oxycodone Allergy Unknown Verified 06/23/20 10:57 povidone-iodine Allergy Unknown Verified 06/23/20 10:57 [From Betadine] propoxyphene Allergy Unknown Verified 06/23/20 10:57 [From Darvocet-N] soap [From Betadine] Allergy Unknown Verified 06/23/20 10:57 Physical Exam Osteopathic Statement: *. No significant issues noted on an osteopathic structural exam other than those noted in the History and Physical/Consult. Vitals: Vital Signs Temp Pulse Resp BP Pulse Ox 06/23/20 15:29 16 06/23/20 12:30 64 16 149/68 06/23/20 12:00 56 L 16 145/82 97 06/23/20 11:51 53 L 16 145/82 97 06/23/20 11:39 52 L 18 145/82 97 06/23/20 10:14 97.8 F 63 16 118/76 98 Intake and Output 06/23/20 06/23/20 06/23/20 06:59 14:59 22:59 Other: Weight 73.482 kg 73.482 kg Gen: awake, alert HEENT: normocephalic, atraumatic, good hearing acuity, moist mucous membranes Resp: CTAB, good air exchange, no accessory muscle use, no wheezes, crackles, rhonchi CVS: good distal perfusion x 4, RRR, no murmurs, clicks, gallops GI: soft, NTTP, ND : no SPT, no CVAT, sanchez catheter not present MSK: no pitting edema, no clubbing Neuro: non-focal, no sensory deficits, appropriate tone Psych: cooperative, euthymic mood Results CBC & Chem 7: 06/23/20 10:52 06/23/20 10:52 Labs: Abnormal Lab Results - Last 24 Hours (Table) 06/23/20 06/23/20 06/23/20 Range/Units 10:52 11:49 11:50 Potassium 3.3 L (3.5-5.1) mmol/L BUN 20 H (7-17) mg/dL AST 45 H (14-36) U/L Alkaline Phosphatase 151 H (38-126) U/L Total Protein 6.1 L (6.3-8.2) g/dL Urine Protein 1+ H (Negative) Calcium Oxalate Crystal Occasional H (None) /hpf Urine Bacteria Rare H (None) /hpf Urine Mucus Occasional H (None) /hpf Stool Occult Blood Positive H (Negative) Thrombosis Risk Factor Assmnt - Choose All That Apply Any of the Below Risk Factors Present?: Yes Other Risk Factors: Yes Each Risk Factor Represents 2 Points: Age 61-74 years Other congenital or acquired thrombophilia - If yes, enter type in comment: No Thrombosis Risk Factor Assessment Total Risk Factor Score: 2 Thrombosis Risk Factor Assessment Level: Low Risk Assessment and Plan Assessment: 1. Syncope 2. Constipation with positive FOBT 3. Vascular dementia 4. History of CVA 5. Hypertension 6. Hyperlipidemia 7. Diabetes type 2 8. PTSD 75-year-old woman past medical history of vascular dementia, history of CVA, HTN/HLD/DM, PTSD presented after syncopal episode and was found to have positive FOBT in the setting of constipation as seen on KUB; she did have sinus bradycardia and inferior and lateral T-wave inversions prompting concern for arrhythmic cause of syncope and will be monitored on telemetry with orthostatics twice a day to rule this out. Plan: - CBC daily, holding aspirin - GI consulted for +FOBT - orthostatics BID, telemetry - PT/OT - IVF, maintain large bore IV access, active type/screen - transfuse goal for hemodynamic instability with dropping Hgb - PPI - continue home medications, with following exceptions: - will downtitrate home metoprolol to 75mg BID - ACHS glucose checks, aspart SSI PRN will replace repaglinide while in house Full Code Son is NOK DVT PPx contraindicated as there is concern for GIB
[2020-06-23 17:08] LABS: Glucose,Whole Blood 67 mg/dL (75-99)
[2020-06-23] MEDS ORDERED: REPAGLINIDE 1 MG TAB PO SCH (17:30)
[2020-06-23 17:42] LABS: Glucose,Whole Blood 97 mg/dL (75-99)
[2020-06-23] MEDS: SODIUM CHLORIDE 0.9% 1,000 ML IV SCH (17:48)
[2020-06-23] MEDS: INSULIN ASPART (NovoLOG) 100 UNIT/ML VIAL SQ SCH (17:48)
[2020-06-23 20:08] LABS: Glucose,Whole Blood 136 mg/dL (75-99)
[2020-06-23] MEDS: LORazepam 0.5 MG TAB PO SCH (20:13)
[2020-06-23] MEDS: ATORVASTATIN 80 MG TAB PO SCH (20:13)
[2020-06-23] MEDS: METOPROLOL TARTRATE 25 MG TAB PO SCH (20:13)
[2020-06-23] MEDS ORDERED: METOPROLOL TARTRATE 50 MG TAB PO SCH (21:00)
--- NOTE | 2020-06-23 23:03 | P.CONS ---
History of Present Illness - Reason for Consult Consult date: 06/23/20 GI bleed Requesting physician: Tiffany López - Chief Complaint Mechanical fall - History of Present Illness 75-year-old female with a medical history significant for PTSD, diabetes mellitus, hyperlipidemia, hypertension and vascular dementia who presented to the hospital after a mechanical fall. GI was consult to see the patient due to concerns over dark colored bowel movements. Of note the patient is a poor historian and history is taken in discussion with the medical team, on the review of the medical record and discussion with the patient. The patient has b een suffering from constipation recently. She had been complaining of cramping lower abdominal pain as well as dark-colored stools. In the emergency department the patient was noted to be constipated and given an enema with multiple bowel movements described as normal on black/melanotic and nonbloody. Stool testing was positive for occult blood. She is on aspirin therapy but no other antiplatelet or anticoagulation therapy. Laboratory evaluation on presentation significant for hemoglobin 11.9, platelet count 273,000, WBC 8.4, total bilirubin 0.9, alkaline phosphatase 151, AST 45 and ALT 32. Review of Systems REVIEW OF SYSTEMS: CONSTITUTIONAL: Denies any fevers, chills, weight change or fatigue. CARDIOVASCULAR: Denies any chest pain, palpitations high or low blood pressures RESPIRATORY: Denies any shortness of breath, hemoptysis or cough. GENITOURINARY: No dysuria or hematuria. MUSCULOSKELETAL: No weakness reported. SKIN: Denies any new rashes or lesions, jaundice or pallor. PSYCHIATRIC: Posttraumatic stress disorder. NEUROLOGY: Denies headache, denies any new focal deficits. Vascular dementia. EARS/NOSE/THROAT: No recent hearing change, congestion, nasal discharge or sore throat. EYES: No pain in eyes, discharge or change in vision. GASTROINTESTINAL: As per HPI. Past Medical History Past Medical History: Fibromyalgia, Hypertension, Rheumatoid Arthritis (RA) Additional Past Medical History / Comment(s): GOUT, confusion History of Any Multi-Drug Resistant Organisms: None Reported Past Surgical History: Appendectomy, Section, Orthopedic Surgery, Tonsillectomy, Tubal Ligation Past Psychological History: Anxiety, Depression, Panic Disorder Smoking Status: Never smoker Past Alcohol Use History: None Reported Past Drug Use History: None Reported - Past Family History Father History Unknown: Yes Mother History Unknown: Yes Medications and Allergies Home Medications Medication Instructions Recorded Confirmed Type Metoprolol Tartrate [Lopressor] 100 mg PO BID 02/27/20 06/23/20 History Aspirin EC [Ecotrin Low Dose] 81 mg PO DAILY #30 tablet. 03/01/20 06/23/20 Rx Atorvastatin [Lipitor] 80 mg PO HS 06/23/20 06/23/20 History LORazepam [Ativan] 0.5 mg PO BID 06/23/20 06/23/20 History Repaglinide [Prandin] 1 mg PO AC-BID 06/23/20 06/23/20 History Sertraline [Zoloft] 150 mg PO DAILY 06/23/20 06/23/20 History Allergies Allergy/AdvReac Type Severity Reaction Status Date / Time dicyclomine [From Bentyl] Allergy Unknown Verified 06/23/20 10:57 grass pollen Allergy Unknown Verified 06/23/20 10:57 Iodinated Contrast Media Allergy Unknown Verified 06/23/20 10:57 [Iodinated Contrast- Oral and IV Dye] mold Allergy Unknown Verified 06/23/20 10:57 oxycodone Allergy Unknown Verified 06/23/20 10:57 povidone-iodine Allergy Unknown Verified 06/23/20 10:57 [From Betadine] propoxyphene Allergy Unknown Verified 06/23/20 10:57 [From Darvocet-N] soap [From Betadine] Allergy Unknown Verified 06/23/20 10:57 Physical Exam Vitals: Vital Signs Temp Pulse Resp BP Pulse Ox 06/23/20 15:29 16 06/23/20 12:30 64 16 149/68 06/23/20 12:00 56 L 16 145/82 97 06/23/20 11:51 53 L 16 145/82 97 06/23/20 11:39 52 L 18 145/82 97 06/23/20 10:14 97.8 F 63 16 118/76 98 Intake and Output 06/23/20 06/23/20 06/23/20 06:59 14:59 22:59 Other: Weight 73.482 kg On physical examination, patient appears comfortable in no apparent distress. HEAD: Normocephalic, atraumatic. EYES: No scleral icterus. No conjunctival injection. MOUTH: No lesions, tongue midline. NECK: Trachea midline, no gross abnormalities. CHEST: Clear to auscultation with no wheezing or rhonchi appreciated. HEART: Regular rate and rhythm. ABDOMEN: Soft, nontender to palpation. Bowel sounds are positive. No organomegaly. No guarding or rigidity. EXTREMITIES: No pedal edema. SKIN: No rashes, no jaundice. NEUROLOGIC: Alert and oriented to person. Results CBC & Chem 7: 06/23/20 10:52 06/23/20 10:52 Labs: Abnormal Lab Results - Last 24 Hours (Table) 06/23/20 06/23/20 06/23/20 Range/Units 10:52 11:49 11:50 Potassium 3.3 L (3.5-5.1) mmol/L BUN 20 H (7-17) mg/dL AST 45 H (14-36) U/L Alkaline Phosphatase 151 H (38-126) U/L Total Protein 6.1 L (6.3-8.2) g/dL Urine Protein 1+ H (Negative) Calcium Oxalate Crystal Occasional H (None) /hpf Urine Bacteria Rare H (None) /hpf Urine Mucus Occasional H (None) /hpf Stool Occult Blood Positive H (Negative) Abdominal x-ray: report reviewed (Prominent stool burden on abdominal x-ray.) Assessment and Plan (1) Melena Narrative/Plan: 75-year-old female with multiple medical comorbidities including vascular dementia who presented to the hospital due to evaluation of a mechanical fall. The patient and her son also complained of cramping lower abdominal pain as well as symptoms of dark colored bowel movements. Stool testing was positive for occult blood, however KUB x-ray showed an extensive stool burden suggestive of fecal impaction with enema given in the ER with multiple bowel movements after the enema. These were described as non-melanotic and nonbloody. Current Visit: Yes Status: Acute Code(s): K92.1 - MELENA SNOMED Code(s): 2052636 (2) Fecal impaction Current Visit: Yes Status: Acute Code(s): K56.41 - FECAL IMPACTION SNOMED Code(s): 09918952 Plan: Supportive care Okay for diet Continue monitor CBC, BMP Tap water enema given in the emergency department and MiraLAX ordered for bowel regimen Stool describes as non-melanotic nonbloody in the ER, and hemoglobin stable at 11.9, at this time we'll continue to monitor with no plans for endoscopy unless patient has fall in hemoglobin or development of signs or symptoms of GI bleed Thank you for allowing us to participate in the care of the patient
[2020-06-24 06:56] LABS: Glucose,Whole Blood 92 mg/dL (75-99)
[2020-06-24] MEDS: INSULIN ASPART (NovoLOG) 100 UNIT/ML VIAL SQ SCH ×3 (08:52→16:57)
[2020-06-24] MEDS: LORazepam 0.5 MG TAB PO SCH ×2 (08:53→20:33)
[2020-06-24] MEDS: SERTRALINE 50 MG TAB PO SCH (08:53)
[2020-06-24] MEDS: polyethylene glycoL 3350 17 GM POWD.PACK PO SCH (08:54)
[2020-06-24] MEDS: METOPROLOL TARTRATE 25 MG TAB PO SCH (08:54)
[2020-06-24] MEDS ORDERED: PANTOPRAZOLE 40 MG/10 ML VIAL IV SCH (09:00)
--- NOTE | 2020-06-24 09:20 | P.PN ---
Subjective Progress Note Date: 06/24/20 Principal diagnosis: syncope 75-year-old female with vascular dementia, hypertension, dyslipidemia, diabetes mellitus type 2, and PTSD who presented after probable syncopal episode. In the ER she underwent an extensive evaluation. On arrival her blood pressure is 118/ 76 and heart rate was 63. Initial blood work showed normal hemoglobin, potassium 3.3, alk phos 151, and total protein 6.1, urinalysis is negative, fecal occult blood was positive. She had and cervical spine showed no acute intracranial hemorrhage or midline shift with chronic left posterior watershed infarct, 3 cm thyroid nodule redemonstrated, no acute fracture dislocation of the cervical spine stable alignment. Chest x-ray showed no acute process. Abdominal x-ray shows prominent stool in the rectum was 6.8 cm wide with mild fecal impaction. She was given an enema in the emergency department. EKG demonstrated sinus bradycardia. She was admitted for syncopal episode with possible GI bleed. She had multiple non blood bowel movements are enema given in the emergency department. Echo from February 2020 showed EF 55-60%, Broderline LVH, Grade I diastolic dysfunction. Orthostatic were positive. She was noted to have sinus bradycardia and her lopressor was held. Patient seen and examined at bedside. She complains of a left sided headache and feeling dizziness. She states that she does not walk well and has some issues. She denies chest pain, SOB, nasuea, or vomiting. General: ill appearing, no distress, appears at stated age Derm: laceration left scalp with gokul in place, multiple areas of bruising, warm, dry Head: atraumatic, normocephalic, symmetric Eyes: EOMI, no lid lag, anicteric sclera Mouth: no lip lesion, mucus membranes moist Cardiovascular: S1S2 reg, no murmur, positive posterior tibial pulse bilateral, Lungs: CTA bilateral, no rhonchi, no rales , no accessory muscle use Abdominal: soft, nontender to palpation, no guarding, no appreciable organomegaly Ext: no gross muscle atrophy, no edema, no contractures Neuro: CN II-XI grossly intact, no focal neuro deficits Psych: Alert, oriented to self , flat affect Syncope with sinus bradycardia, + orthostatics - consult cardio - tele - hold BB - Recheck orthostatics, repeat IVF if positive - last echo with normal EF and no significant valvular dysfunction + FOBT with constipation - GI ruled out, awaiting repeat CBC - Bowel regiment HTN - monitor and follow BP - Lopressor on hold - will start cozaar if needs BP medications HLD - statin DM 2 - Prandin on hold - SSI - Follow BS - check A1C Left scalp laceration - [address] remove on 06/28-06/30 Chronic conditions: Fibromyalgia Rheumatoid arthritis Vascular dementia Neuropathy Right internal carotid artery disease Gout IBS DVT prophylaxis: Heparin Discussed with: patient, nursing, case management Anticipated discharge: 1-[address]: vs SNF A total of 45 minutes was spent on the care of this complex patient more than 50% of the time was spent in counseling and care coordination. Objective - Vital Signs Vital signs: Vital Signs Temp 98.9 F 06/24/20 05:00 Pulse 56 L 06/24/20 08:59 Resp 16 06/24/20 05:00 BP 164/76 06/24/20 08:59 Pulse Ox 96 06/24/20 05:00 Intake & Output 06/23/20 06/24/20 06/24/20 18:59 06:59 18:59 Intake Total 160 Balance 160 Weight 73.482 kg Intake: Intake, IV Titration 160 Amount Sodium Chloride 0.9% 1, 160 000 ml @ 20 mls/hr IV . Q24H [facility] Rx#:[id number] Other: Voiding Method Diaper Incontinent # Voids 1 - Labs CBC & Chem 7: 06/23/20 10:52 06/23/20 10:52 Labs: Abnormal Lab Results - Last 24 Hours (Table) 06/23/20 06/23/20 06/23/20 Range/Units 10:52 11:49 11:50 Potassium 3.3 L (3.5-5.1) mmol/L BUN 20 H (7-17) mg/dL POC Glucose (mg/dL) (75-99) mg/dL AST 45 H (14-36) U/L Alkaline Phosphatase 151 H (38-126) U/L Total Protein 6.1 L (6.3-8.2) g/dL Urine Protein 1+ H (Negative) Calcium Oxalate Crystal Occasional H (None) /hpf Urine Bacteria Rare H (None) /hpf Urine Mucus Occasional H (None) /hpf Stool Occult Blood Positive H (Negative) 06/23/20 06/23/20 Range/Units 17:06 19:57 Potassium (3.5-5.1) mmol/L BUN (7-17) mg/dL POC Glucose (mg/dL) 67 L 136 H (75-99) mg/dL AST (14-36) U/L Alkaline Phosphatase (38-126) U/L Total Protein (6.3-8.2) g/dL Urine Protein (Negative) Calcium Oxalate Crystal (None) /hpf Urine Bacteria (None) /hpf Urine Mucus (None) /hpf Stool Occult Blood (Negative)
[2020-06-24 09:28] LABS: African American GFR (CKD) >90 (>60 ml/min/1.73 sqM); Anion Gap 5 mmol/L; Blood Urea Nitrogen 18 mg/dL (7-17); Calcium 8.2 mg/dL (8.4-10.2); Carbon Dioxide 28 mmol/L (22-30); Chloride 106 mmol/L (98-107); Glucose 95 mg/dL (74-99); Magnesium 1.3 mg/dL (1.6-2.3); Non-African American GFR(CKD) 85 (>60 ml/min/1.73 sqM); Potassium 3.6 mmol/L (3.5-5.1); Sodium 139 mmol/L (137-145)
[2020-06-24 09:40] LABS: Basophils # (A) 0.1 k/uL (0-0.2); Basophils % (A) 1 %; Eosinophils # (A) 0.5 k/uL (0-0.7); Eosinophils % (A) 7 %; HCT 31.4 % (34.0-46.0); Lymphocytes # (A) 1.4 k/uL (1.0-4.8); Lymphocytes % (A) 19 %; MCH 29.4 pg (25.0-35.0); MCHC 31.7 g/dL (31.0-37.0); MCV 92.6 fL (80.0-100.0); Mean Platelet Volume 7.8; Monocytes # (A) 0.6 k/uL (0-1.0); Monocytes % (A) 8 %; Neutrophils # (A) 4.5 k/uL (1.3-7.7); Neutrophils % (A) 63 %; Platelet Count 248 k/uL (150-450); RBC 3.39 m/uL (3.80-5.40); RDW 14.2 % (11.5-15.5); WBC 7.2 k/uL (3.8-10.6)
[2020-06-24] MEDS ORDERED: Magnesium Replacement Protocol 1 EACH MISC MISCELLANE PRN (11:11)
--- NOTE | 2020-06-24 11:14 | P.CRDCN ---
History of Present Illness History of present illness: HISTORY OF PRESENTING ILLNESS This is a pleasant 75-year-old female past medical history significant for retention, dyslipidemia, diabetes mellitus and vascular dementia. 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 We have been asked to see in consultation for syncope. She is seen and examined resting comfortably laying flat in bed in no acute distress. She is alert and oriented however does appear to have episodes of confusion. She states yesterday she was with her son and she was getting ready to go to a doctor's appointment and upon rising she started walking lost her footing and fell backwards hitting her head. She does not believe she actually passed out however she remembers having significant pain and episodes of memory loss surrounding the episode. Initial set of orthostatic vital signs obtained revealed a 20 point drop in her blood pressure from sitting to standing. At the time of my evaluation the 80s and the room repeating orthostatic vital signs and again the patient becomes extremely dizzy and unsteady on her feet when she goes from sitting to standing. In fact the blood pressure machine was unable to even read a blood pressure. The patient was sat back down and her dizziness improved. She recently underwent an echocardiogram in February of this year revealing preserved LV systolic function with ejection fraction 55-60% and grade 1 diastolic dysfunction. DIAGNOSTICS EKG reveals sinus bradycardia heart rate of [address] changes noted in the lateral leads and T-wave inversions inferiorly. Compared to previous EKGs these abnormalities are chronic. Chest xray negative for an acute cardiopulmonary process. CT of the head and C-spine are negative for an acute fracture or dislocation and no acute intracranial hemorrhage or midline shift. There is chronic infarct noted at the left posterior watershed distribution. Laboratory reviewed, WBC 7.2, hemoglobin 10, platelets 248, sodium 139, potassium 3.6, creatinine 0.71, magnesium 1.3. Occult blood positive. Current cardiac medications include aspirin 81 mg daily, atorvastatin 80 mg at bedtime and Lopressor 100 mg twice a day. REVIEW OF SYSTEMS At the time of my exam: CONSTITUTIONAL: Denies fever or chills. CARDIOVASCULAR: Denies chest pain, shortness of breath, orthopnea, PND or palpitations. RESPIRATORY: Denies cough. GASTROINTESTINAL: Denies abdominal pain, diarrhea, constipation, nausea or vomiting. MUSCULOSKELETAL: Denies myalgias. NEUROLOGIC: Denies numbness, tingling or weakness. ENDOCRINE: Denies fatigue, weight change, polydipsia or polyurina. GENITOURINARY: Denies burning, hematuria or urgency with micturation. HEMATOLOGIC: Denies history of anemia or bleeding. PHYSICAL EXAMINATION Blood pressure 113/61 heart rate 59 afebrile and maintaining oxygen saturation on room air. CONSTITUTIONAL: No apparent distress. HEENT: Head is normocephalic. Pupils are equal, round. Sclerae anicteric. Mucous membranes of the mouth are moist. No JVD. No carotid bruit. CHEST EXAMINATION: Lungs are clear to auscultation. No chest wall tenderness is noted on palpation or with deep breathing. HEART EXAMINATION: Regular rate and rhythm. S1, S2 heard. No murmurs, gallops or rub. ABDOMEN: Soft, nontender. Positive bowel sounds. EXTREMITIES: 2+ peripheral pulses, no lower extremity edema and no calf tenderness. NEUROLOGIC EXAMINATION: Patient is awake, alert and oriented. ASSESSMENT Dizziness and fall likely secondary to orthostatic hypotension Orthostatic hypotension Hypomagnesemia Positive blood Hypertension Dyslipidemia Diabetes mellitus Vascular dementia PLAN Increase IV fluids to 75 mL/h. Apply DARIAN hose bilaterally. Advised the patient to change positions slowly and with assistance. Replace magnesium per protocol. Hold antihypertensives. Initiate midodrine 2.5 mg TID. Thank you kindly for this consultation. Nurse Practitioner note has been reviewed, I agree with a documented findings and plan of care. Patient was seen and examined. Past Medical History Past Medical History: Fibromyalgia, Hypertension, Rheumatoid Arthritis (RA) Additional Past Medical History / Comment(s): GOUT, confusion History of Any Multi-Drug Resistant Organisms: None Reported Past Surgical History: Appendectomy, Section, Orthopedic Surgery, Tonsillectomy, Tubal Ligation Additional Past Surgical History / Comment(s): Total L knee arthroplasty, L ankle tendon lengthening, colonoscopy/polypectomy Past Anesthesia/Blood Transfusion Reactions: No Reported Reaction Past Psychological History: Anxiety, Depression, Panic Disorder Smoking Status: Never smoker Past Alcohol Use History: None Reported Past Drug Use History: None Reported - Past Family History Father History Unknown: Yes Mother History Unknown: Yes Medications and Allergies Home Medications Medication Instructions Recorded Confirmed Type Metoprolol Tartrate [Lopressor] 100 mg PO BID 02/27/20 06/23/20 History Aspirin EC [Ecotrin Low Dose] 81 mg PO DAILY #30 tablet. 03/01/20 06/23/20 Rx Atorvastatin [Lipitor] 80 mg PO HS 06/23/20 06/23/20 History LORazepam [Ativan] 0.5 mg PO BID 06/23/20 06/23/20 History Repaglinide [Prandin] 1 mg PO AC-BID 06/23/20 06/23/20 History Sertraline [Zoloft] 150 mg PO DAILY 06/23/20 06/23/20 History Allergies Allergy/AdvReac Type Severity Reaction Status Date / Time dicyclomine [From Bentyl] Allergy Unknown Verified 06/23/20 10:57 grass pollen Allergy Unknown Verified 06/23/20 10:57 Iodinated Contrast Media Allergy Unknown Verified 06/23/20 10:57 [Iodinated Contrast- Oral and IV Dye] mold Allergy Unknown Verified 06/23/20 10:57 oxycodone Allergy Unknown Verified 06/23/20 10:57 povidone-iodine Allergy Unknown Verified 06/23/20 10:57 [From Betadine] propoxyphene Allergy Unknown Verified 06/23/20 10:57 [From Darvocet-N] soap [From Betadine] Allergy Unknown Verified 06/23/20 10:57 Physical Exam Vitals: Vital Signs Temp Pulse Pulse Pulse Pulse Resp BP 06/24/20 08:59 56 L 06/24/20 05:00 98.9 F 55 L 16 06/24/20 00:00 16 06/23/20 19:54 97.9 F 64 65 112 H 16 06/23/20 15:29 16 06/23/20 12:30 64 16 149/68 06/23/20 12:00 56 L 16 145/82 06/23/20 11:51 53 L 16 145/82 06/23/20 11:39 52 L 18 145/82 06/23/20 10:14 97.8 F 63 16 118/76 BP BP BP Pulse Ox 06/24/20 08:59 164/76 06/24/20 05:00 135/59 96 06/24/20 00:00 06/23/20 19:54 107/62 80/52 107/51 99 06/23/20 15:29 06/23/20 12:30 06/23/20 12:00 97 08/12/20 11:51 97 06/23/20 11:39 97 06/23/20 10:14 98 Intake and Output 06/23/20 06/24/20 06/24/20 22:59 06:59 14:59 Intake Total 80 80 Balance 80 80 Intake: Intake, IV Titration 80 80 Amount Sodium Chloride 0.9% 1, 80 80 000 ml @ 20 mls/hr IV . Q24H [facility] Rx#:[id number] Other: Voiding Method Diaper Incontinent # Voids 1 1 Weight 73.482 kg Results 06/24/20 08:20 06/24/20 08:20 Cardiac Enzymes 06/23/20 Range/Units 10:52 AST 45 H (14-36) U/L Coagulation 06/23/20 Range/Units 10:52 APTT 23.2 (22.0-30.0) sec CBC 06/23/20 06/24/20 Range/Units 10:52 08:20 WBC 8.4 7.2 (3.8-10.6) k/uL RBC 4.06 3.39 L (3.80-5.40) m/uL Hgb 11.9 10.0 L D (11.4-16.0) gm/dL Hct 37.2 31.4 L (34.0-46.0) % Plt Count 273 248 (150-450) k/uL Comprehensive Metabolic Panel 06/23/20 06/24/20 Range/Units 10:52 08:20 Sodium 138 139 (137-145) mmol/L Potassium 3.3 L 3.6 (3.5-5.1) mmol/L Chloride 102 106 (98-107) mmol/L Carbon Dioxide 28 28 (22-30) mmol/L BUN 20 H 18 H (7-17) mg/dL Creatinine 0.70 0.71 (0.52-1.04) mg/dL Glucose 87 95 (74-99) mg/dL Calcium 9.1 8.2 L (8.4-10.2) mg/dL AST 45 H (14-36) U/L ALT 32 (4-34) U/L Alkaline Phosphatase 151 H (38-126) U/L Total Protein 6.1 L (6.3-8.2) g/dL Albumin 3.6 (3.5-5.0) g/dL Current Medications Generic Name Dose Route Start Last Admin Trade Name Freq PRN Reason Stop Dose Admin Acetaminophen 650 mg 06/23/20 13:27 06/24/20 06:11 Tylenol Tab PO 650 mg Q6HR PRN Administration Mild Pain or Fever > 100.5 Aspirin 81 mg 06/25/20 09:00 Aspirin PO DAILY [facility] Atorvastatin Calcium 80 mg 06/23/20 21:00 06/23/20 20:13 Lipitor PO 80 mg HS ELENI Administration Sodium Chloride 1,000 mls @ 75 mls/hr 06/23/20 13:30 06/23/20 17:48 Saline 0.9% IV Not Given .[id number] [facility]ENI Insulin Aspart 0 unit 06/23/20 17:30 06/24/20 08:52 Novolog SQ Not Given AC-TID [facility] Protocol Lorazepam 0.5 mg 06/23/20 21:00 06/24/20 08:53 Ativan PO 0.5 mg BID ELENI Administration Naloxone HCl 0.2 mg 06/23/20 13:27 Narcan IV Q2M PRN Opioid Reversal Ondansetron HCl 4 mg 06/23/20 13:27 Zofran IVP Q8HR PRN Nausea And Vomiting Polyethylene Glycol 17 gm 06/24/20 09:00 06/24/20 08:54 Miralax PO 17 gm DAILY ELENI Administration Sertraline HCl 150 mg 06/24/20 09:00 06/24/20 08:53 Zoloft PO 150 mg DAILY ELENI Administration Intake and Output 06/23/20 06/24/20 06/24/20 22:59 06:59 14:59 Intake Total 80 80 Balance 80 80 Intake: Intake, IV Titration 80 80 Amount Sodium Chloride 0.9% 1, 80 80 000 ml @ 20 mls/hr IV . Q24H [facility] Rx#:[id number] Other: Voiding Method Diaper Incontinent # Voids 1 1 Weight 73.482 kg 06/24/20 08:20 06/24/20 08:20
[2020-06-24 11:22] LABS: Glucose,Whole Blood 93 mg/dL (75-99)
[2020-06-24] MEDS: MIDODRINE 5 MG TAB PO SCH ×2 (13:00→16:57)
[2020-06-24] MEDS: MAGNESIUM SULFATE-D5W PMX 1 GM in DEXTROSE/WATER 1 100ML.BAG IVPB SCH ×3 (13:01→17:02)
[2020-06-24] MEDS: SODIUM CHLORIDE 0.9% 1,000 ML IV SCH (16:05)
[2020-06-24 17:03] LABS: Glucose,Whole Blood 119 mg/dL (75-99)
[2020-06-24] MEDS: ATORVASTATIN 80 MG TAB PO SCH (20:32)
[2020-06-24 20:33] LABS: Glucose,Whole Blood 125 mg/dL (75-99)
--- NOTE | 2020-06-24 22:52 | P.PN ---
Subjective Progress Note Date: 06/24/20 Principal diagnosis: Melena Patient is seen lying in bed, no bowel movements reported as per the nursing service. Objective - Vital Signs Vital signs: Vital Signs Temp 98.0 F 06/24/20 12:32 Pulse 54 L 06/24/20 12:32 Resp 18 06/24/20 12:32 BP 172/83 06/24/20 12:32 Pulse Ox 99 06/24/20 12:32 Intake & Output 06/23/20 06/24/20 06/24/20 18:59 06:59 18:59 Intake Total 160 1020 Balance 160 1020 Weight 73.482 kg Intake: Intake, IV Titration 160 160 Amount Sodium Chloride 0.9% 1, 160 160 000 ml @ 75 mls/hr IV . [id number] [facility] Rx#:[id number] Oral 860 Other: Voiding Method Diaper Diaper Incontinent Incontinent # Voids 1 3 - Exam On physical examination, patient appears comfortable in no apparent distress. HEAD: Normocephalic, atraumatic. EYES: No scleral icterus. No conjunctival injection. MOUTH: No lesions, tongue midline. NECK: Trachea midline, no gross abnormalities. ABDOMEN: Soft, nondistended. Bowel sounds are positive. No organomegaly. No guarding or rigidity. EXTREMITIES: No pedal edema. SKIN: No rashes, no jaundice. NEUROLOGIC: Alert and oriented to person. - Labs CBC & Chem 7: 06/24/20 08:20 06/24/20 08:20 Labs: Abnormal Lab Results - Last 24 Hours (Table) 06/23/20 06/23/20 06/24/20 Range/Units 17:06 19:57 08: RBC 3.39 L (3.80-5.40) m/uL Hgb 10.0 L D (11.4-16.0) gm/dL Hct 31.4 L (34.0-46.0) % BUN (7-17) mg/dL POC Glucose (mg/dL) 67 L 136 H (75-99) mg/dL Calcium (8.4-10.2) mg/dL Magnesium (1.6-2.3) mg/dL 06/24/20 Range/Units 08: RBC (3.80-5.40) m/uL Hgb (11.4-16.0) gm/dL Hct (34.0-46.0) % BUN 18 H (7-17) mg/dL POC Glucose (mg/dL) (75-99) mg/dL Calcium 8.2 L (8.4-10.2) mg/dL Magnesium 1.3 L (1.6-2.3) mg/dL Assessment and Plan (1) Melena Narrative/Plan: 75-year-old female with multiple medical comorbidities including vascular dementia who presented to the hospital due to evaluation of a mechanical fall. The patient and her son also complained of cramping lower abdominal pain as well as symptoms of dark colored bowel movements. Stool testing was positive for occult blood, however KUB x-ray showed an extensive stool burden suggestive of fecal impaction with enema given in the ER with multiple bowel movements after the enema. These were described as non-melanotic and nonbloody. No reports of any GI bleeding today. Current Visit: Yes Status: Acute Code(s): K92.1 - MELENA SNOMED Code(s): 3843807 (2) Fecal impaction Current Visit: Yes Status: Acute Code(s): K56.41 - FECAL IMPACTION SNOMED Code(s): 50078166 Plan: Supportive care Okay for diet Continue monitor CBC, BMP Tap water enema given in the emergency department and MiraLAX ordered for bowel regimen Stool describes as non-melanotic nonbloody in the ER, and hemoglobin stable with no bleeding today, at this time we'll continue to monitor with no plans for endoscopy unless patient has fall in hemoglobin or development of signs or symptoms of GI bleed X-ray of the abdomen will be ordered for tomorrow to evaluate stool burden Thank you for allowing us to participate in the care of the patient
[2020-06-25] MEDS: SODIUM CHLORIDE 0.9% 1,000 ML IV SCH ×2 (02:03→17:35)
[2020-06-25 07:05] LABS: Glucose,Whole Blood 130 mg/dL (75-99)
[2020-06-25] MEDS: INSULIN ASPART (NovoLOG) 100 UNIT/ML VIAL SQ SCH ×3 (08:20→17:28)
[2020-06-25] MEDS: SERTRALINE 50 MG TAB PO SCH (08:21)
[2020-06-25] MEDS: MIDODRINE 5 MG TAB PO SCH ×3 (08:22→17:35)
[2020-06-25] MEDS: LORazepam 0.5 MG TAB PO SCH ×2 (08:23→20:55)
[2020-06-25] MEDS: ASPIRIN 81 MG PO SCH (08:23)
[2020-06-25] MEDS: polyethylene glycoL 3350 17 GM POWD.PACK PO SCH (08:25)
[2020-06-25 09:09] LABS: HCT 32.4 % (34.0-46.0); HGB 10.2 gm/dL (11.4-16.0); MCH 29.4 pg (25.0-35.0); MCHC 31.5 g/dL (31.0-37.0); MCV 93.6 fL (80.0-100.0); Mean Platelet Volume 7.3; Platelet Count 237 k/uL (150-450); RBC 3.46 m/uL (3.80-5.40); RDW 14.1 % (11.5-15.5); WBC 7.3 k/uL (3.8-10.6)
--- NOTE | 2020-06-25 09:12 | XR ---
EXAMINATION TYPE: XR abdomen 1V DATE OF EXAM: 06/25/2020 7:16 AM CLINICAL HISTORY: Constipation, stool burden TECHNIQUE: Portable supine images of the abdomen and pelvis were obtained COMPARISON: Abdominal radiograph 06/23/2020. FINDINGS: There is no stool appreciated within the rectal vault on current exam. No significant stool burden throughout. Nonspecific bowel gas pattern. Lung bases are clear. Elevation of the right hemid iaphragm. Degenerative changes of the spine. IMPRESSION: 1. No stool within the rectal vault on current exam. No significant stool burden. 2. Nonspecific bowel gas pattern.
[2020-06-25 09:15] LABS: African American GFR (CKD) >90 (>60 ml/min/1.73 sqM); Anion Gap 6 mmol/L; Blood Urea Nitrogen 15 mg/dL (7-17); Calcium 8.2 mg/dL (8.4-10.2); Carbon Dioxide 27 mmol/L (22-30); Chloride 104 mmol/L (98-107); Glucose 129 mg/dL (74-99); Magnesium 1.8 mg/dL (1.6-2.3); Non-African American GFR(CKD) 88 (>60 ml/min/1.73 sqM); Potassium 3.6 mmol/L (3.5-5.1); Sodium 137 mmol/L (137-145)
[2020-06-25] MEDS ORDERED: SODIUM CHLORIDE 0.9% 500 ML 500 ML IV ONE (11:06)
[2020-06-25 11:25] LABS: Glucose,Whole Blood 113 mg/dL (75-99)
--- NOTE | 2020-06-25 12:26 | P.PN ---
Subjective HISTORY OF PRESENTING ILLNESS This is a pleasant 75-year-old female past medical history significant for retention, dyslipidemia, diabetes mellitus and vascular dementia. She has no prior history of coronary artery disease and does not follow with a interchange agent. She is seen and examined resting comfortably lying flat in bed in no acute distress. At rest she has no symptoms of dizziness. She has no chest pain, shortness of breath or palpitations. The nurse just did orthostatic vital signs and states the patient continued to be extremely dizzy when standing. Supine blood pressure was 158/75 and standing blood pressure was 101/62. Laboratory data reviewed, WBC 7.3, hemoglobin 10.2, platelets 237, sodium 137, potassium 3.6, creatinine 0.64 and magnesium 1.8. Telemetry tracings are unremarkable for an acute arrhythmia. PHYSICAL EXAMINATION CONSTITUTIONAL: No apparent distress. HEENT: Head is normocephalic. Pupils are equal, round. Sclerae anicteric. Mucous membranes of the mouth are moist. No JVD. No carotid bruit. CHEST EXAMINATION: Lungs are clear to auscultation. No chest wall tenderness is noted on palpation or with deep breathing. HEART EXAMINATION: Regular rate and rhythm. S1, S2 heard. No murmurs, gallops or rub. EXTREMITIES: 2+ peripheral pulses, no lower extremity edema and no calf tenderness. ASSESSMENT Dizziness and fall likely secondary to orthostatic hypotension Orthostatic hypotension Hypomagnesemia Positive blood Hypertension Dyslipidemia Diabetes mellitus Vascular dementia PLAN Increase midodrine to 5 mg 3 times a day. Continue to check orthostatic vital signs every shift. Further recommendations to follow based upon clinical course. Nurse Practitioner note has been reviewed, I agree with a documented findings and plan of care. Patient was seen and examined. Objective - Vital Signs Vital signs: Vital Signs Temp 98.4 F 06/25/20 04:31 Pulse 61 06/25/20 04:31 Resp 16 06/25/20 04:31 BP 138/60 06/25/20 04:31 Pulse Ox 97 06/25/20 04:31 Intake & Output 06/24/20 06/25/20 06/25/20 18:59 06:59 18:59 Intake Total 1020 700 Balance 1020 700 Intake: Intake, IV Titration 160 600 Amount Sodium Chloride 0.9% 1, 160 600 000 ml @ 75 mls/hr IV . [id number] [facility] Rx#:[id number] Oral 860 100 Other: Voiding Method Diaper Bedside Commode Bedside Commode Incontinent Diaper Incontinent Incontinent # Voids 1 1 1 - Labs CBC & Chem 7: 06/25/20 08:28 06/25/20 08:28 Labs: Abnormal Lab Results - Last 24 Hours (Table) 06/24/20 06/24/20 06/25/20 Range/Units 16:57 20:29 07:03 RBC (3.80-5.40) m/uL Hgb (11.4-16.0) gm/dL Hct (34.0-46.0) % Glucose (74-99) mg/dL POC Glucose (mg/dL) 119 H 125 H 130 H (75-99) mg/dL Calcium (8.4-10.2) mg/dL 06/25/20 06/25/20 Range/Units 08:28 08:28 RBC 3.46 L (3.80-5.40) m/uL Hgb 10.2 L (11.4-16.0) gm/dL Hct 32.4 L (34.0-46.0) % Glucose 129 H (74-99) mg/dL POC Glucose (mg/dL) (75-99) mg/dL Calcium 8.2 L (8.4-10.2) mg/dL
[2020-06-25 17:02] LABS: Glucose,Whole Blood 96 mg/dL (75-99)
[2020-06-25 18:13] LABS: Hemoglobin A1C 5.5 % (4.0-6.0)
--- NOTE | 2020-06-25 19:18 | PN ---
PROGRESS NOTE DATE OF SERVICE: 06/25/2020 Patient is a 75-year-old pleasant white female admitted to hospital with severe constipation and melena. Apparently she was given laxatives and had two bowel movements yesterday. This morning she denies any complaints. She reports no abdominal pain, no further episodes of rectal bleeding. PHYSICAL EXAMINATION: She appears comfortable. No apparent distress. Vital signs stable. Blood pressure is 112/86, pulse rate 65, temperature 98. HEENT examination unremarkable. Conjunctivae pink. Sclerae anicteric. Oral cavity no lesions. NECK: No JVD or lymph node enlargement. CHEST: Clear to auscultation. HEART: Regular rate and rhythm. ABDOMEN: Soft. It was nontender, nondistended. Bowel sounds are positive. EXTREMITIES: No pedal edema. NEURO: She is alert and oriented x3. No focal deficits. LABS: WBC 7.3, hemoglobin 10.2, platelets normal. Basic metabolic panel is within normal limits. IMPRESSION: Lower abdominal pain with constipation/rectal bleeding, resolved. Apparently has been having regular bowel movements. She had abdominal x-rays done early this morning that showed no significant stool volume noted. She remains on a high-fiber diet, tolerating well. RECOMMENDATIONS: 1. Monitor the patient closely. 2. Continue MiraLAX 1 scoop daily. 3. Increase ambulation. 4. No need for any endoscopic intervention at the present time. 5. We will follow with you closely. Thank you for this consultation. MMROBERTOL / ASHLIN: [id number] /
[2020-06-25] MEDS: ATORVASTATIN 80 MG TAB PO SCH (20:55)
--- NOTE | 2020-06-25 22:11 | P.PN ---
Subjective Progress Note Date: 06/25/20 (delayed charting seen at 0915) Principal diagnosis: syncope 75-year-old female with vascular dementia, hypertension, dyslipidemia, diabetes mellitus type 2, and PTSD who presented after probable syncopal episode. In the ER she underwent an extensive evaluation. On arrival her blood pressure is 118/76 and heart rate was 63. Initial blood work showed normal hemoglobin, potassium 3.3, alk phos 151, and total protein 6.1, urinalysis is negative, fecal occult blood was positive. She had and cervical spine showed no acute intracranial hemorrhage or midline shift with chronic left posterior watershed infarct, 3 cm thyroid nodule redemonstrated, no acute fracture dislocation of the cervical spine stable alignment. Chest x-ray showed no acute process. Abdominal x-ray shows prominent stool in the rectum was 6.8 cm wide with mild fecal impaction. She was given an enema in the emergency department. EKG demonstrated sinus bradycardia. She was admitted for syncopal episode with possible GI bleed. She had multiple non blood bowel movements are enema given in the emergency department. Orthostatic vital signs were checked positive. She was given a liter of fluid these were rechecked on the morning of 06/24. He continued to be positive and cardiology was consulted. They initiated the patient on Midrin. They also recommended MANOJ hose. Orthostatic repeated on 06/25 and continued to be positive, given an additiona bolus and midodrine increased with continued + orthostatics. Echo from February 2020 showed EF 55-60%, Broderline LVH, Grade I diastolic dys function. Orthostatic were positive. She was noted to have sinus bradycardia and her lopressor was held. Patient seen and examined at bedside. States she is feeling nervous and anxious. Denies any dizziness at this point in time but states she still does not feel right. Denies chest pain, shortness of breath, and palpitations. General: non toxic, no distress, appears at stated age Derm: laceration left scalp with gokul in place, multiple areas of bruising, warm, dry Head: atraumatic, normocephalic, symmetric Eyes: EOMI, no lid lag, anicteric sclera Mouth: no lip lesion, mucus membranes moist Cardiovascular: S1S2 reg, no murmur, positive posterior tibial pulse bilateral, Lungs: CTA bilateral, no rhonchi, no rales , no accessory muscle use Abdominal: soft, nontender to palpation, no guarding, no appreciable organomegaly Ext: no gross muscle atrophy, no edema, no contractures Neuro: CN II-XI grossly intact, no focal neuro deficits Psych: Alert, oriented to self , flat affect Syncope with sinus bradycardia, + orthostatics - Cardio recs appreciated - on midodrin and dose increased, give IVF,Manoj hose - tele - hold BB - last echo with normal EF and no significant valvular dysfunction + FOBT with constipation - GI ruled out, awaiting repeat CBC - Bowel regiment HTN - monitor and follow BP - Lopressor on hold - will start cozaar if needs BP medications HLD - statin DM 2 - Prandin on hold - SSI - Follow BS - A1C 5.5. suggest off meds at discharge Left scalp laceration - [address] remove on 06/28-06/30 Chronic conditions: Fibromyalgia Rheumatoid arthritis Vascular dementia Neuropathy Right internal carotid artery disease Gout IBS DVT prophylaxis: Heparin Discussed with: patient, nursing, case management Anticipated discharge: in AM Anticipated discharge place: HH vs SNF A total of 35 minutes was spent on the care of this complex patient more than 50% of the time was spent in counseling and care coordination. Objective - Vital Signs Vital signs: Vital Signs Temp 98.8 F 06/25/20 21:00 Pulse 53 L 06/25/20 21:00 Resp 16 06/25/20 21:00 BP 150/74 06/25/20 21:00 Pulse Ox 98 06/25/20 21:00 Intake & Output 06/25/20 06/25/20 06/26/20 06:59 18:59 06:59 Intake Total 700 500 300 Balance 700 500 300 Intake: Intake, IV Titration 600 300 Amount Sodium Chloride 0.9% 1, 600 300 000 ml @ 75 mls/hr IV . [id number] [facility] Rx#:[id number] Oral 100 500 Other: Voiding Method Bedside Commode Bedside Commode Diaper Incontinent Incontinent # Voids 1 1 - Labs CBC & Chem 7: 06/25/20 08:28 06/25/20 08:28 Labs: Abnormal Lab Results - Last 24 Hours (Table) 06/25/20 06/25/20 06/25/20 Range/Units 07:03 08:28 08:28 RBC 3.46 L (3.80-5.40) m/uL Hgb 10.2 L (11.4-16.0) gm/dL Hct 32.4 L (34.0-46.0) % Glucose 129 H (74-99) mg/dL POC Glucose (mg/dL) 130 H (75-99) mg/dL Calcium 8.2 L (8.4-10.2) mg/dL 06/25/20 Range/Units 11:24 RBC (3.80-5.40) m/uL Hgb (11.4-16.0) gm/dL Hct (34.0-46.0) % Glucose (74-99) mg/dL POC Glucose (mg/dL) 113 H (75-99) mg/dL Calcium (8.4-10.2) mg/dL
[2020-06-25 22:19] LABS: Glucose,Whole Blood 105 mg/dL (75-99)
[2020-06-26] MEDS: SODIUM CHLORIDE 0.9% 1,000 ML IV SCH (03:57)
[2020-06-26 07:05] LABS: Glucose,Whole Blood 91 mg/dL (75-99)
[2020-06-26] MEDS: INSULIN ASPART (NovoLOG) 100 UNIT/ML VIAL SQ SCH ×3 (07:07→17:26)
[2020-06-26] MEDS: ASPIRIN 81 MG PO SCH (08:38)
[2020-06-26] MEDS: MIDODRINE 5 MG TAB PO SCH ×3 (08:38→18:02)
[2020-06-26] MEDS: LORazepam 0.5 MG TAB PO SCH ×2 (08:39→20:59)
[2020-06-26] MEDS: SERTRALINE 50 MG TAB PO SCH (08:39)
[2020-06-26] MEDS: polyethylene glycoL 3350 17 GM POWD.PACK PO SCH (08:39)
[2020-06-26] MEDS: FLUDROCORTISONE 0.1 MG TAB PO SCH (10:58)
[2020-06-26 11:26] LABS: Glucose,Whole Blood 191 mg/dL (75-99)
--- NOTE | 2020-06-26 12:24 | P.PN ---
Subjective Progress Note Date: 06/26/20 this is a pleasant but very confused 75-year-old female patient. She has a history of hypertension, hyperlipidemia, diabetes and vascular dementia. Presented to the hospital with orthostatic hypotension. Blood pressure continues to show significant decrease upon standing. She continues to feel "lowsy" with position changes. She is on Midodrine 5 mg by mouth 3 times a day. She has been initiated on Florinef this morning by primary. Upon examination patient is resting comfortably in bed she does not appear to be in any acute distress. The patient is quite confused and therefore the HPI was obtained from the chart M review of systems was quite limited however the patient does verbalize feeling "fine" at the time of my exam. Objective - Vital Signs Vital signs: Vital Signs Temp 98.3 F 06/26/20 11:40 Pulse 61 06/26/20 11:40 Resp 17 06/26/20 11:40 BP 142/66 06/26/20 11:40 Pulse Ox 98 06/26/20 11:40 Intake & Output 06/25/20 06/26/20 06/26/20 18:59 06:59 18:59 Intake Total 500 750 Balance 500 750 Intake: Intake, IV Titration 750 Amount Sodium Chloride 0.9% 1, 750 000 ml @ 75 mls/hr IV . [id number] [facility] Rx#:[id number] Oral 500 Other: Voiding Method Bedside Commode Bedside Commode Bedside Commode Incontinent Incontinent Incontinent # Voids 1 1 - Exam PHYSICAL EXAMINATION: HEENT: [Head is atraumatic, normocephalic. Pupils equal, round. Neck is supple. There is no elevated jugular venous pressure.] HEART EXAMINATION: [Heart sounds regular, S1 and S2 normal. No murmur or gallop heard.] CHEST EXAMINATION:[ Lungs are clear to auscultation and precussion. No chest wall tenderness is noted on palpation or with deep breathing.] ABDOMEN: [ Soft, nontender. Bowel sounds are heard. No organomegaly noted]. EXTREMITIES:[ 2+ peripheral pulses with no evidence of peripheral edema and no calf tenderness noted]. NEUROLOGIC [patient is awake, alert and oriented x1.] . - Labs CBC & Chem 7: 06/25/20 08:28 06/25/20 08:28 Labs: Abnormal Lab Results - Last 24 Hours (Table) 06/25/20 06/26/20 Range/Units 22:18 11:25 POC Glucose (mg/dL) 105 H 191 H (75-99) mg/dL Assessment and Plan Assessment: #1 dizziness and falling secondary to orthostatic hypotension #2 orthostatic hypotension #3 hypomagnesemia #4 fecal occult blood positive #5 hypertension #6 dyslipidemia #7 diabetes mellitus #8 vascular dementia Plan: From cardiology's perspective medications were reviewed and we will continue the same. At this time we'll follow the patient on an as-needed basis. Please do not hesitate to contact us with questions. RESIDENT CARE ASSISTANT note has been reviewed, I agree with a documented findings and plan of care. Patient was seen and examined.
--- NOTE | 2020-06-26 14:10 | P.PN ---
Subjective Progress Note Date: 06/26/20 Principal diagnosis: syncope 75-year-old female with vascular dementia, hypertension, dyslipidemia, diabetes mellitus type 2, and PTSD who presented after probable syncopal episode. In the ER she underwent an extensive evaluation. On arrival her blood pressure is 118/ 76 and heart rate was 63. Initial blood work showed normal hemoglobin, potassium 3.3, alk phos 151, and total protein 6.1, urinalysis is negative, fecal occult blood was positive. She had and cervical spine showed no acute intracranial hemorrhage or midline shift with chronic left posterior watershed infarct, 3 cm thyroid nodule redemonstrated, no acute fracture dislocation of the cervical spine stable alignment. Chest x-ray showed no acute process. Abdominal x-ray shows prominent stool in the rectum was 6.8 cm wide with mild fecal impaction. She was given an enema in the emergency department. EKG demonstrated sinus bradycardia. She was admitted for syncopal episode with possible GI bleed. She had multiple non blood bowel movements are enema given in the emergency department. Orthostatic vital signs were checked positive. She was given a liter of fluid these were rechecked on the morning of 06/24. He continued to be positive and cardiology was consulted. They initiated the p atient on Midrin. They also recommended DARIAN hose. Orthostatic repeated on 06/25 and continued to be positive, given an additiona bolus and midodrine increased with continued + orthostatics. Still with positive orthostatics on 06/26 and started on florinef. Echo from February 2020 showed EF 55-60%, Broderline LVH, Grade I diastolic dysfunction. Orthostatic were positive. She was noted to have sinus bradycardia and her lopressor was held. Patient seen and examined at bedside. Continues to feel dizzy when standing, no nausea no vomiting, no chest pain, no shortness of breath. General: non toxic, no distress, appears at stated age Derm: laceration left scalp with gokul in place, multiple areas of bruising, warm, dry Head: atraumatic, normocephalic, symmetric Eyes: EOMI, no lid lag, anicteric sclera Mouth: no lip lesion, mucus membranes moist Cardiovascular: S1S2 reg, no murmur, positive posterior tibial pulse bilateral, Lungs: Decreased breath sounds bilateral, no rhonchi, no rales , no accessory muscle use Abdominal: soft, nontender to palpation, no guarding, no appreciable organ omegaly Ext: no gross muscle atrophy, no edema, no contractures Neuro: CN II-XI grossly intact, no focal neuro deficits Psych: Alert, oriented to self , flat affect Syncope with orthostatic hypotension - Cardio recs appreciated will follow as needed -Status post IV fluids -On Midrin, add Florinef -Daily orthostatics - DARIAN hose in place - tele - hold BB - last echo with normal EF and no significant valvular dysfunction HTN - monitor and follow BP - Lopressor on hold - will start cozaar if needs BP medications HLD - statin DM 2 - Prandin on hold - SSI - Follow BS - A1C 5.5. suggest off meds at discharge Left scalp laceration - [address] remove on 06/28-06/30 Constipation, resolved Chronic conditions: Fibromyalgia Rheumatoid arthritis Vascular dementia Neuropathy Right internal carotid artery disease Gout IBS Patient with continued orthostatic hypotension despite multiple medications and fluid resuscitation. Would suggest placement for patient on discharge [facility] facility as she continues to be symptomatic and would be a high risk for falling again. Consult social work DVT prophylaxis: Heparin Discussed with: patient, nursing, case management Anticipated discharge: 2-[address]:SNF A total of 35 minutes was spent on the care of this complex patient more than 50% of the time was spent in counseling and care coordination. Objective - Vital Signs Vital signs: Vital Signs Temp 98.3 F 06/26/20 11:40 Pulse 71 06/26/20 12:59 Resp 18 06/26/20 12:59 BP 90/57 06/26/20 12:59 Pulse Ox 98 06/26/20 12:59 Intake & Output 06/25/20 06/26/20 06/26/20 18:59 06:59 18:59 Intake Total 500 750 Balance 500 750 Intake: Intake, IV Titration 750 Amount Sodium Chloride 0.9% 1, 750 000 ml @ 75 mls/hr IV . [id number] [facility] Rx#:[id number] Oral 500 Other: Voiding Method Bedside Commode Bedside Commode Bedside Commode Incontinent Incontinent Incontinent # Voids 1 1 - Labs CBC & Chem 7: 06/25/20 08:28 06/25/20 08:28 Labs: Abnormal Lab Results - Last 24 Hours (Table) 06/25/20 06/26/20 Range/Units 22:18 11:25 POC Glucose (mg/dL) 105 H 191 H (75-99) mg/dL
[2020-06-26 17:23] LABS: Glucose,Whole Blood 118 mg/dL (75-99)
[2020-06-26 20:21] LABS: Glucose,Whole Blood 114 mg/dL (75-99)
[2020-06-26] MEDS: ATORVASTATIN 80 MG TAB PO SCH (20:59)
--- NOTE | 2020-06-26 21:07 | P.PN ---
Subjective Progress Note Date: 06/26/20 Principal diagnosis: Melena Patient is seen lying in bed, no signs or symptoms of GI bleeding reported. Tolerating her diet. Objective - Vital Signs Vital signs: Vital Signs Temp 98.3 F 06/26/20 11:40 Pulse 61 06/26/20 11:40 Resp 17 06/26/20 11:40 BP 142/66 06/26/20 11:40 Pulse Ox 98 06/26/20 11:40 Intake & Output 06/25/20 06/26/20 06/26/20 18:59 06:59 18:59 Intake Total 500 750 Balance 500 750 Intake: Intake, IV Titration 750 Amount Sodium Chloride 0.9% 1, 750 000 ml @ 75 mls/hr IV . [id number] [facility] Rx#:[id number] Oral 500 Other: Voiding Method Bedside Commode Bedside Commode Bedside Commode Incontinent Incontinent Incontinent # Voids 1 1 - Exam On physical examination, patient appears comfortable in no apparent distress. HEAD: Normocephalic, atraumatic. EYES: No scleral icterus. No conjunctival injection. MOUTH: No lesions, tongue midline. NECK: Trachea midline, no gross abnormalities. ABDOMEN: Soft, nondistended. Bowel sounds are positive. No organomegaly. No guarding or rigidity. EXTREMITIES: No pedal edema. SKIN: No rashes, no jaundice. NEUROLOGIC: Alert and oriented to person. - Labs CBC & Chem 7: 06/25/20 08:28 06/25/20 08:28 Labs: Abnormal Lab Results - Last 24 Hours (Table) 06/25/20 06/26/20 Range/Units 22:18 11:25 POC Glucose (mg/dL) 105 H 191 H (75-99) mg/dL Assessment and Plan (1) Melena Narrative/Plan: 75-year-old female with multiple medical comorbidities including vascular dementia who presented to the hospital due to evaluation of a mechanical fall. The patient and her son also complained of cramping lower abdominal pain as well as symptoms of dark colored bowel movements. Stool testing was positive for occult blood, however KUB x-ray showed an extensive stool burden suggestive of fecal impaction with enema given in the ER with multiple bowel movements after the enema. These were described as non-melanotic and nonbloody. No reports of any GI bleeding today. Current Visit: Yes Status: Acute Code(s): K92.1 - MELENA SNOMED Code(s): 9078976 (2) Fecal impaction Current Visit: Yes Status: Acute Code(s): K56.41 - FECAL IMPACTION SNOMED Code(s): 18389637 Plan: Supportive care Okay for diet Continue monitor CBC, BMP Tap water enema given in the emergency department and MiraLAX ordered for bowel regimen Stool describes as non-melanotic nonbloody in the ER, and hemoglobin stable with no bleeding today, at this time we'll continue to monitor with no plans for endoscopy unless patient has fall in hemoglobin or development of signs or symptoms of GI bleed X-ray of the abdomen in follow-up negative for fecal stasis Thank you for allowing us to participate in the care of the patient
[2020-06-27 07:10] LABS: Glucose,Whole Blood 97 mg/dL (75-99)
[2020-06-27] MEDS: INSULIN ASPART (NovoLOG) 100 UNIT/ML VIAL SQ SCH ×3 (07:16→18:30)
[2020-06-27] MEDS: ASPIRIN 81 MG PO SCH (08:29)
[2020-06-27] MEDS: FLUDROCORTISONE 0.1 MG TAB PO SCH ×2 (08:29→20:17)
[2020-06-27] MEDS: LORazepam 0.5 MG TAB PO SCH ×2 (08:29→20:17)
[2020-06-27] MEDS: SERTRALINE 50 MG TAB PO SCH (08:29)
[2020-06-27] MEDS: polyethylene glycoL 3350 17 GM POWD.PACK PO SCH (08:29)
[2020-06-27] MEDS: MIDODRINE 5 MG TAB PO SCH ×3 (08:29→18:31)
[2020-06-27 11:34] LABS: Glucose,Whole Blood 123 mg/dL (75-99)
[2020-06-27 17:33] LABS: Glucose,Whole Blood 104 mg/dL (75-99)
--- NOTE | 2020-06-27 18:12 | P.PN ---
Subjective Progress Note Date: 06/27/20 Patient was seen and examined. No acute events overnight. Patient reports dizziness especially during changes in position. Orthostats are positive. She denies any chest pain, shortness breath or palpitations. No nausea or vomiting. No fever or chills. Objective - Vital Signs Vital signs: Vital Signs Temp 98.0 F 06/27/20 12:00 Pulse 88 06/27/20 12:00 Resp 16 06/27/20 12:00 BP 170/74 06/27/20 12:00 Pulse Ox 98 06/27/20 12:00 Intake & Output 06/26/20 06/27/20 06/27/20 18:59 06:59 18:59 Intake Total 600 200 Balance 600 200 Intake: Intake, IV Titration 600 200 Amount Sodium Chloride 0.9% 1, 600 200 000 ml @ 75 mls/hr IV . [id number] [facility] Rx#:[id number] Other: Voiding Method Bedside Commode Bedside Commode Bedside Commode Incontinent Incontinent Incontinent # Voids 1 3 # Bowel Movements 1 - Exam General: [non toxic], [no distress], [appears at stated age] Derm: [warm], [dry], laceration over the left scalp Head: [atraumatic], [normocephalic], [symmetric] Eyes: [EOMI], [no lid lag], [anicteric sclera] Mouth: [no lip lesion], [mucus membranes moist] Cardiovascular: [S1S2 reg], [no murmur], [positive posterior tibial pulse bilateral], Lungs: [CTA bilateral], [no rhonchi, no rales] , [no accessory muscle use] Abdominal: [soft], [ nontender to palpation], [no guarding], [no appreciable organomegaly] Ext: [no gross muscle atrophy], [no edema], [no contractures] Neuro: [no focal neuro deficits] Psych: [Alert], [oriented], [appropriate affect] - Labs CBC & Chem 7: 06/25/20 08:28 06/25/20 08:28 Labs: Abnormal Lab Results - Last 24 Hours (Table) 06/26/20 06/27/20 06/27/20 Range/Units 20:15 11:32 17:31 POC Glucose (mg/dL) 114 H 123 H 104 H (75-99) mg/dL Assessment and Plan Assessment: Syncope with orthostatic hypotension - Cardio recs appreciated will follow as needed -Status post IV fluids -On Midrin, increase Florinef -Daily orthostatics - DARIAN hose in place - tele - hold BB - last echo with normal EF and no significant valvular dysfunction HTN - monitor and follow BP - Lopressor on hold - will start cozaar if needs BP medications HLD - statin DM 2 - Prandin on hold - SSI - Follow BS - A1C 5.5. suggest off meds at discharge Left scalp laceration - [address] remove on 06/28-06/30 Constipation, resolved Chronic conditions: Fibromyalgia Rheumatoid arthritis Vascular dementia Neuropathy Right internal carotid artery disease Gout IBS
[2020-06-27] MEDS: ATORVASTATIN 80 MG TAB PO SCH (20:17)
[2020-06-27 20:57] LABS: Glucose,Whole Blood 121 mg/dL (75-99)
[2020-06-28 07:09] LABS: Glucose,Whole Blood 102 mg/dL (75-99)
[2020-06-28] MEDS: ASPIRIN 81 MG PO SCH (08:10)
[2020-06-28] MEDS: FLUDROCORTISONE 0.1 MG TAB PO SCH (08:10)
[2020-06-28] MEDS: LORazepam 0.5 MG TAB PO SCH (08:10)
[2020-06-28] MEDS: SERTRALINE 50 MG TAB PO SCH (08:10)
[2020-06-28] MEDS: INSULIN ASPART (NovoLOG) 100 UNIT/ML VIAL SQ SCH ×3 (08:11→17:03)
[2020-06-28] MEDS: MIDODRINE 5 MG TAB PO SCH ×3 (08:11→17:29)
[2020-06-28] MEDS: polyethylene glycoL 3350 17 GM POWD.PACK PO SCH (08:11)
[2020-06-28 09:12] LABS: Basophils # (A) 0.1 k/uL (0-0.2); Basophils % (A) 1 %; Eosinophils # (A) 0.4 k/uL (0-0.7); Eosinophils % (A) 4 %; HCT 33.2 % (34.0-46.0); HGB 10.5 gm/dL (11.4-16.0); Hypochromasia Slight; Lymphocytes # (A) 1.5 k/uL (1.0-4.8); Lymphocytes % (A) 18 %; MCH 29.9 pg (25.0-35.0); MCHC 31.7 g/dL (31.0-37.0); MCV 94.3 fL (80.0-100.0); Mean Platelet Volume 8.6; Monocytes # (A) 0.4 k/uL (0-1.0); Monocytes % (A) 5 %; Neutrophils # (A) 5.8 k/uL (1.3-7.7); Neutrophils % (A) 71 %; Platelet Count 264 k/uL (150-450); RBC 3.52 m/uL (3.80-5.40); WBC 8.1 k/uL (3.8-10.6)
[2020-06-28 09:21] LABS: ALT 32 U/L (4-34); AST 47 U/L (14-36); African American GFR (CKD) >90 (>60 ml/min/1.73 sqM); Alkaline Phosphatase 135 U/L (38-126); Anion Gap 6 mmol/L; Blood Urea Nitrogen 11 mg/dL (7-17); Calcium 8.3 mg/dL (8.4-10.2); Carbon Dioxide 28 mmol/L (22-30); Chloride 103 mmol/L (98-107); Glucose 140 mg/dL (74-99); Non-African American GFR(CKD) 89 (>60 ml/min/1.73 sqM); Potassium 3.2 mmol/L (3.5-5.1); Sodium 137 mmol/L (137-145); Total Bilirubin 0.9 mg/dL (0.2-1.3); Total Protein 5.3 g/dL (6.3-8.2)
[2020-06-28] MEDS ORDERED: Potassium Replacement Protocol 1 EACH MISC MISCELLANE PRN (09:51)
[2020-06-28 10:15] VITALS: RESP 17
[2020-06-28 11:14] LABS: Glucose,Whole Blood 128 mg/dL (75-99)
[2020-06-28 12:12] VITALS: BP 137/75; PULSE 69; TEMP 98.2
--- NOTE | 2020-06-28 12:39 | P.DS ---
Providers Date of admission: 06/23/20 13:48 Expected date of discharge: 06/28/20 Attending physician: Madyson Garcia DO Consults: 06/24/20 09:00 Consult Physician Routine Consulting Provider: nAdrea Li Consult Reason/Comments: syncope Do you want consulting provider notified?: Yes Primary care physician: [facility] Course: 75-year-old female with vascular dementia, hypertension, dyslipidemia, diabetes mellitus type 2, and PTSD who presented after probable syncopal episode. In the ER she underwent an extensive evaluation. On arrival her blood pressure is 118/76 and heart rate was 63. Initial blood work showed normal hemoglobin, potassium 3.3, alk phos 151, and total protein 6.1, urinalysis is negative, fecal occult blood was positive. She had and cervical spine showed no acute intracranial hemorrhage or midline shift with chronic left posterior watershed infarct, 3 cm thyroid nodule redemonstrated, no acute fracture dislocation of the cervical spine stable alignment. Chest x-ray showed no acute process. Abdominal x-ray shows prominent stool in the rectum was 6.8 cm wide with mild fecal impaction. She was given an enema in the emergency department. EKG demonstrated sinus bradycardia. She was admitted for syncopal episode with possible GI bleed. She had multiple non blood bowel movements are enema given in the emergency department. Orthostatic vital signs were checked positive. She was given a liter of fluid these were rechecked on the morning of 06/24. He continued to be positive and cardiology was consulted. They initiated the patient on Midrin. They also recommended DARIAN hose. Orthostatic repeated on 06/25 and continued to be positive, given an additiona bolus and midodrine increased with continued + orthostatics. Still with positive orthostatics on 06/26 and started on florinef. Echo from February 2020 showed EF 55-60%, Broderline LVH, Grade I diastolic dysfunction. Orthostatic were positive. She was noted to have sinus bradycardia and her lopressor was held. Her orthostats remained positive and Florinef was increased on June 27. Her dizziness improved but her orthostats remained positive on June 28. PT was consulted to work with the patient in order to decide between physical therapy at subacute rehab versus home with 24-hour supervision. Patient was seen and examined. No acute events overnight. Patient questioning her ability to walk and ambulate. She denies any dizziness today. She denies any chest pain, shortness breath or palpitations. No nausea or vomiting. No fever or chills. Opened towards subacute rehab if necessary. General: [non toxic], [no distress], [appears at stated age] Derm: [warm], [dry], laceration over the left scalp Head: [atraumatic], [normocephalic], [symmetric] Eyes: [EOMI], [no lid lag], [anicteric sclera] Mouth: [no lip lesion], [mucus membranes moist] Cardiovascular: [S1S2 reg], [no murmur], [positive DP pulse bilateral], Lungs: [CTA bilateral], [no rhonchi, no rales] , [no accessory muscle use] Abdominal: [soft], [ nontender to palpation], [no guarding], [no appreciable organomegaly] Ext: [no gross muscle atrophy], [no edema], [no contractures], DARIAN hose in place Neuro: [no focal neuro deficits] Psych: [Alert], [oriented], [appropriate affect] Syncope with orthostatic hypotension - Cardio recs appreciated will follow as needed -Status post IV fluids -On Midrin, increase Florinef -Daily orthostatics - DARIAN hose in place - tele - hold BB - last echo with normal EF and no significant valvular dysfunction HTN - monitor and follow BP - Lopressor on hold - will start cozaar if needs BP medications HLD - statin DM 2 - Prandin on hold - SSI - Follow BS - A1C 5.5. suggest off meds at discharge Left scalp laceration - [address] remove on 06/28-06/30 Constipation, resolved Chronic conditions: Fibromyalgia Rheumatoid arthritis Vascular dementia Neuropathy Right internal carotid artery disease Gout IBS [Orthostats are positive despite no dizziness. I advised the patient that subacute rehab would be the safest in terms of discharge planning. Will get PT to work with the patient today. Will discontinue metoprolol. Anticipate DC home with 24-hour supervision versus subacute rehab. This complex discharge took about 35 minutes to complete.] Pertinent Studies: KUB, chest x-ray, CT head, CT C-spine Patient Condition at Discharge: Stable Plan - Discharge Summary Discharge Rx Participant: No New Discharge Prescriptions: New Fludrocortisone [Florinef] 0.1 mg PO BID #60 tab Midodrine [ProAmatine] 5 mg PO AC-TID #90 tab Continue Aspirin EC [Ecotrin Low Dose] 81 mg PO DAILY #30 tablet. Atorvastatin [Lipitor] 80 mg PO HS LORazepam [Ativan] 0.5 mg PO BID Repaglinide [Prandin] 1 mg PO AC-BID Sertraline [Zoloft] 150 mg PO DAILY Discontinued Metoprolol Tartrate [Lopressor] 100 mg PO BID Discharge Medication List Aspirin EC [Ecotrin Low Dose] 81 mg PO DAILY #30 tablet. 03/01/20 [Rx] Atorvastatin [Lipitor] 80 mg PO HS 06/23/20 [History] LORazepam [Ativan] 0.5 mg PO BID 06/23/20 [History] Repaglinide [Prandin] 1 mg PO AC-BID 06/23/20 [History] Sertraline [Zoloft] 150 mg PO DAILY 06/23/20 [History] Fludrocortisone [Florinef] 0.1 mg PO BID #60 tab 06/28/20 [Rx] Midodrine [ProAmatine] 5 mg PO AC-TID #90 tab 06/28/20 [Rx] Follow up Appointment(s)/Referral(s): Titus Herbert MD [Primary Care Provider] - 07/01/20 4:30 pm Ambulatory/Diagnostic Orders: Basic Metabolic Panel [LAB.AMB] Time Frame: 3 Days, Location: None Selected Activity/Diet/Wound Care/Special Instructions: Diet: Cardiac Follow-up PCP within 3 days of discharge. Repeat BMP in 3 days. Discontinue metoprolol to be restarted with PCP. Continue Midodrin and Florinef. Take all medications as advised. Come back to the ED or call 911 for worsening dizziness, chest pain, shortness of breath, palpitations or syncopal episodes. Recommend DC to inpatient rehab. Discharge Disposition: HOME SELF-CARE
[2020-06-28 16:58] LABS: Glucose,Whole Blood 125 mg/dL (75-99)
== END 2020-06-28 19:04 | DRG 312 ==
LOC: EC 10:10 → 5NMEDONC 13:48
PROVIDERS: ADMIT Internal Medicine; ATTEND Internal Medicine
PROC: 0HQ0XZZ Repair Scalp Skin, External Approach (ICD-10-PCS; principal; 2020-06-23)
DX: I95.1 Orthostatic hypotension (principal); K56.41 Fecal impaction; K58.1 Irritable bowel syndrome with constipation; F41.0 Panic disorder [episodic paroxysmal anxiety]; F43.10 Post-traumatic stress disorder, unspecified; E11.42 Type 2 diabetes mellitus with diabetic polyneuropathy; E78.5 Hyperlipidemia, unspecified; E83.42 Hypomagnesemia; F01.50 Vascular dementia, unspecified severity, without behavioral disturbance, psychotic disturbance, mood disturbance, and anxiety; I10 Essential (primary) hypertension; M06.9 Rheumatoid arthritis, unspecified; M10.9 Gout, unspecified; R26.81 Unsteadiness on feet; M79.7 Fibromyalgia; S01.01XA Laceration without foreign body of scalp, initial encounter; W01.0XXA Fall on same level from slipping, tripping and stumbling without subsequent striking against object, initial encounter; Z79.82 Long term (current) use of aspirin; Z79.899 Other long term (current) drug therapy; Z86.73 Personal history of transient ischemic attack (TIA), and cerebral infarction without residual deficits; E04.1 Nontoxic single thyroid nodule; Z86.010 Personal history of colon polyps; Z90.49 Acquired absence of other specified parts of digestive tract; R00.1 Bradycardia, unspecified; Z96.652 Presence of left artificial knee joint; Z90.89 Acquired absence of other organs; Z98.51 Tubal ligation status; I65.21 Occlusion and stenosis of right carotid artery; Z88.5 Allergy status to narcotic agent; Z88.1 Allergy status to other antibiotic agents; Z91.041 Radiographic dye allergy status
CPT/HCPCS: 12001; 36415; 70450; 71046; 72125; 74018; 80048; 80053; 81001; 82272; 83036; 83605; 83735; 85025; 85027; 85730; 86850; 86900; 86901; 93005; 96361; 96374; 99285

== ENCOUNTER → 2020-08-10 | Outpatient (CLI) | payer MEDICARE, BC ==
--- NOTE | 2020-08-10 11:47 | CT ---
EXAMINATION TYPE: CT abdomen pelvis wo con DATE OF EXAM: 08/10/2020 COMPARISON: None INDICATION: Abnormal weight loss, stomach pains DLP: 308.3 mGycm, Automated exposure control for dose reduction was used. CONTRAST: 0 mL of Isovue 300. Study performed with Oral Contrast TECHNIQUE: Axial images were obtained from above the diaphragm to the pubic rami in the axial plane a t 5 mm thick sections. Reconstructed images are reviewed on the computer in the coronal plane. FINDINGS: Limited CT sections are obtained the lung bases. The lung bases are clear. Coronary artery calcific ation is present. CT ABDOMEN: Liver: Normal Spleen: Normal Pancreas: Normal Adrenal glands: The adrenal glands are normal. Gallbladder: Normal Kidneys: No masses are evident. No hydronephrosis is present. No cysts are present. No renal stone s are identified. Aorta: Vascular calcification is within the aorta. Inferior vena cava: Normal. CT PELVIS: Loops of bowel within the abdomen and pelvis are normal. There are loops of bowel which are incom pletely distended or lack oral contrast limiting their evaluation. Appendix: Not identified. No suspicious dilated tubular structure or inflammatory changes evident. Urinary bladder: Decompressed with limited evaluation. Genitourinary structures: Uterus and adnexa appear normal. Osseous structures: No suspicious lytic or sclerotic lesions. IMPRESSIONS: 1. No suspicious acute changes.
== END | disposition home or self-care (01) ==
LOC: RADCTMAIN 08:30
PROVIDERS: ATTEND Nurse Practitioner Adult Health
DX: K59.00 Constipation, unspecified (principal); R10.9 Unspecified abdominal pain; R63.4 Abnormal weight loss; Z91.048 Other nonmedicinal substance allergy status; Z88.5 Allergy status to narcotic agent
CPT/HCPCS: 74176

== ENCOUNTER 2021-03-05 12:41 | Inpatient (IN) | payer MEDICARE, BC ==
[2021-03-05] MEDS ORDERED: SODIUM CHLORIDE 0.9% 1,000 ML IV STA ×2 (12:52)
--- NOTE | 2021-03-05 13:06 | ED ---
Altered Mental Status HPI - General Stated Complaint: Altered Time Seen by Provider: 03/05/21 12:41 Source: EMS, RN notes reviewed, old records reviewed Mode of arrival: EMS - History of Present Illness Initial Comments: This is a 75-year-old female with a history of CVA in the past history of GI bleed who was brought in by EMS today because of 2 days of decreased activities of daily living she generally uses a scooter to transfer she is unable to do this she also had urinary incontinence she is demonstrated evidence of expressive aphasia no focal deficits apparently with upper or lower extremities. No trauma. He has demonstrated decreased oral intake expressive aphasia. No fevers chills sweats nausea vomiting reported MD Complaint: decreased responsiveness, weakness, other - Related Data Home Medications Medication Instructions Recorded Confirmed Atorvastatin [Lipitor] 80 mg PO HS 06/23/20 03/05/21 Sertraline [Zoloft] 150 mg PO DAILY 06/23/20 03/05/21 Furosemide [Lasix] 20 mg PO DAILY PRN 03/05/21 03/05/21 LORazepam [Ativan] 0.5 mg PO BID PRN 03/05/21 03/05/21 Nateglinide [Starlix] 120 mg PO AC-TID 03/05/21 03/05/21 Previous Rx's Medication Instructions Recorded Fludrocortisone [Florinef] 0.1 mg PO BID #60 tab 06/28/20 Allergies Allergy/AdvReac Type Severity Reaction Status Date / Time dicyclomine [From Bentyl] Allergy Unknown Verified 03/05/21 15:05 grass pollen Allergy Unknown Verified 03/05/21 15:05 Iodinated Contrast Media Allergy Unknown Verified 03/05/21 15:05 [Iodinated Contrast- Oral and IV Dye] mold Allergy Unknown Verified 03/05/21 15:05 oxycodone Allergy Unknown Verified 03/05/21 15:05 povidone-iodine Allergy Unknown Verified 03/05/21 15:05 [From Betadine] propoxyphene Allergy Unknown Verified 03/05/21 15:05 [From Darvocet-N] soap [From Betadine] Allergy Unknown Verified 03/05/21 15:05 Review of Systems ROS Statement: Those systems with pertinent positive or pertinent negative responses have been documented in the HPI. ROS Other: All systems not noted in ROS Statement are negative. Limitations: ROS unobtainable due to patients medical condition Past Medical History Past Medical History: Fibromyalgia, Hypertension, Rheumatoid Arthritis (RA) Additional Past Medical History / Comment(s): GOUT, confusion History of Any Multi-Drug Resistant Organisms: None Reported Past Surgical History: Appendectomy, Section, Orthopedic Surgery, Tonsillectomy, Tubal Ligation Additional Past Surgical History / Comment(s): Total L knee arthroplasty, L ankle tendon lengthening, colonoscopy/polypectomy Past Anesthesia/Blood Transfusion Reactions: No Reported Reaction Past Psychological History: Anxiety, Depression, Panic Disorder Smoking Status: Never smoker Past Alcohol Use History: None Reported Past Drug Use History: None Reported - Past Family History Father History Unknown: Yes Mother History Unknown: Yes General Exam - General Exam Comments Initial Comments: This is a well-developed asthenic appearing female who is awake and alert but demonstrating expressive aphasia. She is slow to respond Limitations: altered mental status, physical limitation ENT exam: Present: mucous membranes dry Neck exam: Present: normal inspection, full ROM, other (Genitourinarybruits) Extremities exam: Present: full ROM, normal capillary refill, pedal edema Neurological exam: Present: alert, altered, CN II-XII intact Psychiatric exam: Present: other (Unable to evaluate) Course Vital Signs 03/05/21 03/05/21 12:50 14:30 Temperature 96.2 F L Pulse Rate 70 71 Respiratory 20 24 Rate Blood Pressure 100/52 106/95 O2 Sat by Pulse 99 99 Oximetry - Reevaluation(s) Reevaluation #1: 03/05/21 15:17 Reevaluation patient reveals she is able to talk slowly at this time. This is a definite improvement from her initial arrival. Reevaluation #2: 03/05/21 16:19 Reevaluation patient she is phonating better. She does appear to be improved Medical Decision Making - Medical Decision Making I did discuss findings with patient and her son as well as with Dr. Jaquez. H will be admitted with neurological consultation. Also correction of electrolyte abnormalities as well as dehydration - Lab Data Result diagrams: 03/05/21 12:59 03/05/21 12:59 Lab Results 03/05/21 03/05/21 03/05/21 Range/Units 12:59 12:59 12:59 WBC 10.3 (3.8-10.6) k/uL RBC 4.09 (3.80-5.40) m/uL Hgb 11.7 (11.4-16.0) gm/dL Hct 35.6 (34.0-46.0) % MCV 87.1 (80.0-100.0) fL MCH 28.7 (25.0-35.0) pg MCHC 32.9 (31.0-37.0) g/dL RDW 16.1 H (11.5-15.5) % Plt Count 127 L (150-450) k/uL MPV 9.3 Neutrophils % 89 % Lymphocytes % 6 % Monocytes % 4 % Eosinophils % 1 % Basophils % 0 % Neutrophils # 9.1 H (1.3-7.7) k/uL Lymphocytes # 0.6 L (1.0-4.8) k/uL Monocytes # 0.4 (0-1.0) k/uL Eosinophils # 0.1 (0-0.7) k/uL Basophils # 0.0 (0-0.2) k/uL Anisocytosis Slight PT 10.3 (9.0-12.0) sec INR 1.0 (<1.2) APTT 26.6 (22.0-30.0) sec Sodium 143 (137-145) mmol/L Potassium 2.4 L* (3.5-5.1) mmol/L Chloride 101 (98-107) mmol/L Carbon Dioxide 33 H (22-30) mmol/L Anion Gap 9 mmol/L BUN 54 H (7-17) mg/dL Creatinine 1.41 H (0.52-1.04) mg/dL Est GFR (CKD-EPI)AfAm 42 (>60 ml/min/1.73 sqM) Est GFR (CKD-EPI)NonAf 37 (>60 ml/min/1.73 sqM) Glucose 50 L (74-99) mg/dL Calcium 8.9 (8.4-10.2) mg/dL Magnesium 1.5 L (1.6-2.3) mg/dL Total Bilirubin 0.7 (0.2-1.3) mg/dL AST 152 H (14-36) U/L ALT 81 H (4-34) U/L Alkaline Phosphatase 92 (38-126) U/L Creatine Kinase 1068 H* (30-135) U/L Troponin I (0.000-0.034) ng/mL Total Protein 6.2 L (6.3-8.2) g/dL Albumin 3.4 L (3.5-5.0) g/dL Urine Color Urine Appearance (Clear) Urine pH (5.0-8.0) Ur Specific [place] (1.001-1.035) Urine Protein (Negative) Urine Glucose (UA) (Negative) Urine Ketones (Negative) Urine Blood (Negative) Urine Nitrite (Negative) Urine Bilirubin (Negative) Urine Urobilinogen (<2.0) mg/dL Ur Leukocyte Esterase (Negative) Urine RBC (0-5) /hpf Urine WBC (0-5) /hpf Hyaline Casts (0-2) /lpf Coronavirus (PCR) (Not Detectd) 03/05/21 03/05/21 03/05/21 Range/Units 12:59 13:08 13:24 WBC (3.8-10.6) k/uL RBC (3.80-5.40) m/uL Hgb (11.4-16.0) gm/dL Hct (34.0-46.0) % MCV (80.0-100.0) fL MCH (25.0-35.0) pg MCHC (31.0-37.0) g/dL RDW (11.5-15.5) % Plt Count (150-450) k/uL MPV Neutrophils % % Lymphocytes % % Monocytes % % Eosinophils % % Basophils % % Neutrophils # (1.3-7.7) k/uL Lymphocytes # (1.0-4.8) k/uL Monocytes # (0-1.0) k/uL Eosinophils # (0-0.7) k/uL Basophils # (0-0.2) k/uL Anisocytosis PT (9.0-12.0) sec INR (<1.2) APTT (22.0-30.0) sec Sodium (137-145) mmol/L Potassium (3.5-5.1) mmol/L Chloride (98-107) mmol/L Carbon Dioxide (22-30) mmol/L Anion Gap mmol/L BUN (7-17) mg/dL Creatinine (0.52-1.04) mg/dL Est GFR (CKD-EPI)AfAm (>60 ml/min/1.73 sqM) Est GFR (CKD-EPI)NonAf (>60 ml/min/1.73 sqM) Glucose (74-99) mg/dL Calcium (8.4-10.2) mg/dL Magnesium (1.6-2.3) mg/dL Total Bilirubin (0.2-1.3) mg/dL AST (14-36) U/L ALT (4-34) U/L Alkaline Phosphatase (38-126) U/L Creatine Kinase (30-135) U/L Troponin I 0.062 H* (0.000-0.034) ng/mL Total Protein (6.3-8.2) g/dL Albumin (3.5-5.0) g/dL Urine Color Light Yellow Urine Appearance Clear (Clear) Urine pH 6.0 (5.0-8.0) Ur Specific [place] 1.008 (1.001-1.035) Urine Protein 1+ H (Negative) Urine Glucose (UA) Negative (Negative) Urine Ketones Negative (Negative) Urine Blood Small H (Negative) Urine Nitrite Negative (Negative) Urine Bilirubin Negative (Negative) Urine Urobilinogen <2.0 (<2.0) mg/dL Ur Leukocyte Esterase Negative (Negative) Urine RBC <1 (0-5) /hpf Urine WBC 1 (0-5) /hpf Hyaline Casts 1 (0-2) /lpf Coronavirus (PCR) Not Detected (Not Detectd) - EKG Data -: EKG Interpreted by Me EKG Comments: Rate is 70 QRS 106 QT since QTC 440/[address]-T wave configuration. - Radiology Data Radiology results: report reviewed (Imaging reviewed no evidence of acute processes. Evidence of old left temporal CVA), image reviewed Critical Care Time Critical Care Time: Yes Total Critical Care Time: 39 Critical Care Time: Critical care time includes initial presentation with history physical labs x- rays multiple reevaluation patient responsive therapy discuss with the patient and family regarding findings discussed with the main physician admission orders documentation the above review charting was available. Review the imaging. Disposition Clinical Impression: TIA (transient ischemic attack), Rhabdomyolysis, Dehydration, Hypokalemia, Hypomagnesemia, Failure to thrive, Elevated troponin, Acute kidney injury Disposition: ADMITTED IP TO THIS HOSP Condition: Fair Referrals: Chris Suárez [STAFF PHYSICIAN] - 1-2 days
[2021-03-05 13:35] LABS: Partial Thromboplastin Time 26.6 sec (22.0-30.0); Prothrombin Time 10.3 sec (9.0-12.0)
[2021-03-05 13:36] LABS: Anisocytosis Slight; Basophils % (A) 0 %; Eosinophils # (A) 0.1 k/uL (0-0.7); Eosinophils % (A) 1 %; HCT 35.6 % (34.0-46.0); HGB 11.7 gm/dL (11.4-16.0); Lymphocytes # (A) 0.6 k/uL (1.0-4.8); Lymphocytes % (A) 6 %; MCH 28.7 pg (25.0-35.0); MCHC 32.9 g/dL (31.0-37.0); MCV 87.1 fL (80.0-100.0); Mean Platelet Volume 9.3; Monocytes # (A) 0.4 k/uL (0-1.0); Monocytes % (A) 4 %; Neutrophils # (A) 9.1 k/uL (1.3-7.7); Neutrophils % (A) 89 %; Platelet Count 127 k/uL (150-450); RBC 4.09 m/uL (3.80-5.40); RDW 16.1 % (11.5-15.5); WBC 10.3 k/uL (3.8-10.6)
[2021-03-05 13:54] LABS: Albumin 3.4 g/dL (3.5-5.0); Calcium 8.9 mg/dL (8.4-10.2); Magnesium 1.5 mg/dL (1.6-2.3); Total Bilirubin 0.7 mg/dL (0.2-1.3); Total Protein 6.2 g/dL (6.3-8.2)
[2021-03-05 13:54] LABS: Appearance,Urine Clear (Clear); Bilirubin,Urine Negative (Negative); Blood,Urine Small (Negative); Color,Urine Light Yellow; Glucose,Urine (UA) Negative (Negative); Hyaline Casts,Urine 1 /lpf (0-2); Ketones,Urine Negative (Negative); Leukocyte Esterase,Urine Negative (Negative); Nitrite,Urine Negative (Negative); Protein,Urine 1+ (Negative); RBC,Urine <1 /hpf (0-5); Specific Gravity,Urine 1.008 (1.001-1.035); Urobilinogen,Urine <2.0 mg/dL (<2.0); WBC,Urine 1 /hpf (0-5)
--- NOTE | 2021-03-05 14:16 | XR ---
EXAMINATION TYPE: XR chest 2V DATE OF EXAM: 03/05/2021 COMPARISON: 06/23/2020 HISTORY: Altered mental status TECHNIQUE: 2 views FINDINGS: There is no heart failure nor confluent pneumonic infiltrate. Costophrenic angles are clear . Heart size is normal. There is bone infarct in the left proximal humerus. IMPRESSION: No active cardiopulmonary disease. No change.
[2021-03-05 14:21] LABS: Potassium 2.4 mmol/L (3.5-5.1)
--- NOTE | 2021-03-05 14:30 | CT ---
EXAMINATION TYPE: CT brain wo con DATE OF EXAM: 03/05/2021 COMPARISON: 06/23/2020 HISTORY: Altered mental status CT DLP: 1082.4 mGycm Automated exposure control for dose reduction was used. There is mild cerebral cortical atrophy. There is no mass effect nor midline shift. There is no sign of intracranial hemorrhage. There is old 4 x 3 cm infarct left posterior temporal lobe. There is some hypodensity in the periventricular white matter. The calvarium is intact. Skull base is intact. IMPRESSION: Old left temporal lobe infarct unchanged. Mild chronic small vessel ischemia unchanged. No acute intr acranial abnormality.
[2021-03-05] MEDS ORDERED: POTASSIUM CHLORIDE 20 MEQ in WATER FOR INJECTION 1 100ML.BAG IVPB STA ×2 (15:00→19:17)
[2021-03-05] MEDS ORDERED: ACETAMINOPHEN TAB 325 MG TAB PO PRN (16:23)
[2021-03-05] MEDS ORDERED: LORazepam 0.5 MG TAB PO PRN (16:25)
[2021-03-05] MEDS ORDERED: FUROSEMIDE 20 MG TAB PO PRN (16:25)
[2021-03-05] MEDS ORDERED: SODIUM CHLORIDE 0.9% 1,000 ML IV SCH (16:30)
[2021-03-05] MEDS: MAGNESIUM SULFATE-D5W PMX 1 GM in DEXTROSE/WATER 1 100ML.BAG IVPB SCH ×2 (16:42→17:28)
[2021-03-05] MEDS ORDERED: POTASSIUM CHLORIDE ER 20 MEQ TAB.ER PO STA ×2 (17:11→19:13)
--- NOTE | 2021-03-05 17:26 | P.HPIM ---
History of Present Illness H&P Date: 03/05/21 This is a 75-year-old female with complex past medical history noted below significant for prior stroke and underlying depression who presented to the emergency room with worsening confusion and altered mental status. Patient was seen by me in the ER. She is unable to provide any meaningful history. Her son at bedside is providing most of the history. Her son informed me that patient had a dramatic change in her overall condition in the last 48 hours. He said that she usually lives at home and is able to transfer between a scooter and her bed but for the last couple of days she has been staying in the scooter and unable to get up. He also realized today that she has been wetting herself for the past 2 days and noticed significant rash around the inguinal and perineal areas. He said that this morning his mother was having difficulty formulating words and he was unable to understand what she is saying so EMS were called to bring her to the ER. In the emergency room, computed tomography scan of the head showed evidence of old stroke but no acute findings. Patient was noted to have significant electrolyte abnormalities with severe hypokalemia and hypomagnesemia as well as evidence of rhabdomyolysis and acute kidney injury. Urinalysis was clear for infection. At the time of my evaluation patient was awake and alert. She is oriented to herself and to the place but not to the date. She was able to answer simple questions and did not have any specific complaint other than having pain all over her body. She did not have any neurological focal deficits. She will be admitted to the hospital for further management Of note, patient had the complex past medical history where she was hospitalized last year for stroke and subsequently was diagnosed with depression and manic episodes then was transferred to a psych facility in [place] where she stayed there for 6 weeks. Her son is clearly and happy about that experience and denies that his mother has any history of psych problems. He said that her primary care physician took her off of the psych medications including the antidepressant long time ago. Patient only takes Ativan twice a day at home. Her son also was not aware that patient has an underlying vascular dementia as reported in her chart and evidence by her MRI of the brain done last year. Review of Systems Review of system: 14 points review of systems were obtained and were negative except to what were mentioned in the HPI. Past Medical History Past Medical History: Fibromyalgia, Hypertension, Rheumatoid Arthritis (RA) Additional Past Medical History / Comment(s): GOUT, confusion History of Any Multi-Drug Resistant Organisms: None Reported Past Surgical History: Appendectomy, Section, Orthopedic Surgery, Tonsillectomy, Tubal Ligation Additional Past Surgical History / Comment(s): Total L knee arthroplasty, L ankle tendon lengthening, colonoscopy/polypectomy Past Anesthesia/Blood Transfusion Reactions: No Reported Reaction Past Psychological History: Anxiety, Depression, Panic Disorder Smoking Status: Never smoker Past Alcohol Use History: None Reported Past Drug Use History: None Reported - Past Family History Father History Unknown: Yes Mother History Unknown: Yes Medications and Allergies Home Medications Medication Instructions Recorded Confirmed Type Atorvastatin [Lipitor] 80 mg PO HS 06/23/20 03/05/21 History Sertraline [Zoloft] 150 mg PO DAILY 06/23/20 03/05/21 History Fludrocortisone [Florinef] 0.1 mg PO BID #60 tab 06/28/20 03/05/21 Rx Furosemide [Lasix] 20 mg PO DAILY PRN 03/05/21 03/05/21 History LORazepam [Ativan] 0.5 mg PO BID PRN 03/05/21 03/05/21 History Nateglinide [Starlix] 120 mg PO AC-TID 03/05/21 03/05/21 History Allergies Allergy/AdvReac Type Severity Reaction Status Date / Time dicyclomine [From Bentyl] Allergy Unknown Verified 03/05/21 15:05 grass pollen Allergy Unknown Verified 03/05/21 15:05 Iodinated Contrast Media Allergy Unknown Verified 03/05/21 15:05 [Iodinated Contrast- Oral and IV Dye] mold Allergy Unknown Verified 03/05/21 15:05 oxycodone Allergy Unknown Verified 03/05/21 15:05 povidone-iodine Allergy Unknown Verified 03/05/21 15:05 [From Betadine] propoxyphene Allergy Unknown Verified 03/05/21 15:05 [From Darvocet-N] soap [From Betadine] Allergy Unknown Verified 03/05/21 15:05 Physical Exam Vitals: Vital Signs Temp Pulse Resp BP Pulse Ox 03/05/21 16:45 72 20 110/65 97 03/05/21 14:30 96.2 F L 71 24 106/95 99 03/05/21 12:50 70 20 100/52 99 Intake and Output 03/05/21 03/05/21 03/05/21 06:59 14:59 22:59 Output Total 600 Balance -600 Output: Urine 600 Other: Weight 76.204 kg General: The patient is awake and alert, in no distress Eye: there is normal conjunctiva bilaterally. Neck: The neck is supple, there is no JVD. Cardiovascular: Normal S1-S2, no S3-S4, no murmurs. Respiratory: Lungs clear to auscultation bilaterally Gastrointestinal: Abdomen is soft, nontender Musculoskeletal: There is no pedal edema. Neurological:. Speech is normal. Skin: Skin is warm and dry Results CBC & Chem 7: 03/05/21 12:59 03/05/21 12:59 Labs: Abnormal Lab Results - Last 24 Hours (Table) 03/05/21 03/05/21 03/05/21 Range/Units 12:59 12:59 12:59 RDW 16.1 H (11.5-15.5) % Plt Count 127 L (150-450) k/uL Neutrophils # 9.1 H (1.3-7.7) k/uL Lymphocytes # 0.6 L (1.0-4.8) k/uL Potassium 2.4 L* (3.5-5.1) mmol/L Carbon Dioxide 33 H (22-30) mmol/L BUN 54 H (7-17) mg/dL Creatinine 1.41 H (0.52-1.04) mg/dL Glucose 50 L (74-99) mg/dL Magnesium 1.5 L (1.6-2.3) mg/dL AST 152 H (14-36) U/L ALT 81 H (4-34) U/L Creatine Kinase 1068 H* (30-135) U/L Troponin I 0.062 H* (0.000-0.034) ng/mL Total Protein 6.2 L (6.3-8.2) g/dL Albumin 3.4 L (3.5-5.0) g/dL Urine Protein (Negative) Urine Blood (Negative) 03/05/21 Range/Units 13:24 RDW (11.5-15.5) % Plt Count (150-450) k/uL Neutrophils # (1.3-7.7) k/uL Lymphocytes # (1.0-4.8) k/uL Potassium (3.5-5.1) mmol/L Carbon Dioxide (22-30) mmol/L BUN (7-17) mg/dL Creatinine (0.52-1.04) mg/dL Glucose (74-99) mg/dL Magnesium (1.6-2.3) mg/dL AST (14-36) U/L ALT (4-34) U/L Creatine Kinase (30-135) U/L Troponin I (0.000-0.034) ng/mL Total Protein (6.3-8.2) g/dL Albumin (3.5-5.0) g/dL Urine Protein 1+ H (Negative) Urine Blood Small H (Negative) Assessment and Plan Assessment: This is a 75-year-old female with past medical history noted below presented to the emergency room with progressive weakness and altered mental status. Patient was evaluated in the ER and will be admitted to the hospital for further management of her medical problems noted below. 1. Acute toxo metabolic encephalopathy 2. Acute kidney injury 3. Hypokalemia 4. Hypomagnesemia 5. Acute rhabdomyolysis 6. Chronic medical problems: Underlying cognitive impairment/dementia, history of depression with manic episodes (requiring 6 weeks inpatient psych hospitalization last year), history of CVA, chronic orthostatic hypotension maintained on Florinef 7. Physical debility, PT/OT 8. DVT prophylaxis with subcu heparin Today, I reviewed her medication list and lab work results. Continue IV fluid hydration with normal saline at 130 mL per hour. Patient received 1 mg of magnesium sulfate IV and 20 mEq of potassium chloride IV in the ER. I would order K-Dur 20 milliequivalent oral 1 and magnesium oxide 400 mg twice daily. Repeat lab work in the morning. Neurology consulted by ER staff, appreciate recommendations
[2021-03-05 18:37] LABS: Anisocytosis Slight; Basophils % (A) 0 %; Eosinophils # (A) 0.1 k/uL (0-0.7); Eosinophils % (A) 1 %; HCT 34.3 % (34.0-46.0); HGB 10.9 gm/dL (11.4-16.0); Lymphocytes # (A) 0.8 k/uL (1.0-4.8); Lymphocytes % (A) 8 %; MCH 27.8 pg (25.0-35.0); MCHC 31.8 g/dL (31.0-37.0); MCV 87.3 fL (80.0-100.0); Mean Platelet Volume 9.1; Monocytes # (A) 0.4 k/uL (0-1.0); Monocytes % (A) 4 %; Neutrophils # (A) 8.6 k/uL (1.3-7.7); Neutrophils % (A) 86 %; Platelet Count 123 k/uL (150-450); RBC 3.93 m/uL (3.80-5.40); RDW 16.3 % (11.5-15.5)
[2021-03-05 18:50] LABS: ALT 77 U/L (4-34); AST 142 U/L (14-36); African American GFR (CKD) 47 (>60 ml/min/1.73 sqM); Albumin 3.1 g/dL (3.5-5.0); Alcohol <10 mg/dL; Alkaline Phosphatase 85 U/L (38-126); Anion Gap 9 mmol/L; Blood Urea Nitrogen 50 mg/dL (7-17); Calcium 8.7 mg/dL (8.4-10.2); Carbon Dioxide 33 mmol/L (22-30); Chloride 102 mmol/L (98-107); Non-African American GFR(CKD) 41 (>60 ml/min/1.73 sqM); Sodium 144 mmol/L (137-145); Total Bilirubin 0.6 mg/dL (0.2-1.3); Total Protein 5.5 g/dL (6.3-8.2)
[2021-03-05 19:00] LABS: Glucose 29 mg/dL (74-99); Potassium 2.4 mmol/L (3.5-5.1)
[2021-03-05 19:05] LABS: Glucose,Whole Blood 26 mg/dL (75-99)
[2021-03-05] MEDS ORDERED: DEXTROSE 50% SYRINGE 50 ML IVP STA ×2 (19:11→21:48)
[2021-03-05] MEDS: NON FORMULARY DRUG (Nateglinide 120 MG Tab) PO SCH (19:30)
[2021-03-05 19:32] LABS: Glucose,Whole Blood 104 mg/dL (75-99)
[2021-03-05] MEDS ORDERED: ATORVASTATIN 80 MG TAB PO SCH ×2 (21:00)
[2021-03-05 21:58] LABS: Glucose,Whole Blood 36 mg/dL (75-99)
[2021-03-05 22:03] LABS: Glucose,Whole Blood 116 mg/dL (75-99)
[2021-03-05] MEDS: HEPARIN SODIUM,PORCINE/PF 5,000 UNIT/0.5 ML SYRINGE SQ SCH (22:03)
[2021-03-05] MEDS: FLUDROCORTISONE 0.1 MG TAB PO SCH (22:03)
[2021-03-05] MEDS: MAGNESIUM OXIDE 400 MG TAB PO SCH (22:03)
[2021-03-05] MEDS: DEXTROSE 10% IN WATER 500 ML in EMPTY BAG 1 BAG IV SCH (22:47)
[2021-03-05 22:51] LABS: Glucose,Whole Blood 95 mg/dL (75-99)
[2021-03-05 23:45] LABS: Glucose,Whole Blood 105 mg/dL (75-99)
[2021-03-06 00:54] LABS: Glucose,Whole Blood 97 mg/dL (75-99)
[2021-03-06 01:57] LABS: Glucose,Whole Blood 107 mg/dL (75-99)
[2021-03-06] MEDS: DEXTROSE 10% IN WATER 500 ML in EMPTY BAG 1 BAG IV SCH ×2 (02:50→07:00)
[2021-03-06 02:57] LABS: Glucose,Whole Blood 114 mg/dL (75-99)
[2021-03-06 04:15] LABS: Glucose,Whole Blood 106 mg/dL (75-99)
[2021-03-06 05:16] LABS: Glucose,Whole Blood 103 mg/dL (75-99)
[2021-03-06 06:10] LABS: Glucose,Whole Blood 119 mg/dL (75-99)
[2021-03-06 07:59] LABS: Glucose,Whole Blood 131 mg/dL (75-99)
[2021-03-06] MEDS: NON FORMULARY DRUG (Nateglinide 120 MG Tab) PO SCH (08:17)
[2021-03-06] MEDS: HEPARIN SODIUM,PORCINE/PF 5,000 UNIT/0.5 ML SYRINGE SQ SCH ×2 (08:19→20:22)
[2021-03-06] MEDS: MAGNESIUM OXIDE 400 MG TAB PO SCH ×2 (08:19→20:22)
[2021-03-06] MEDS: SERTRALINE 50 MG TAB PO SCH (08:19)
[2021-03-06] MEDS: FLUDROCORTISONE 0.1 MG TAB PO SCH ×2 (08:19→21:40)
[2021-03-06 09:34] LABS: Basophils % (A) 0 %; Eosinophils # (A) 0.1 k/uL (0-0.7); Eosinophils % (A) 1 %; HCT 30.8 % (34.0-46.0); HGB 10.2 gm/dL (11.4-16.0); Lymphocytes # (A) 0.8 k/uL (1.0-4.8); Lymphocytes % (A) 12 %; MCH 28.9 pg (25.0-35.0); MCV 87.6 fL (80.0-100.0); Mean Platelet Volume 8.4; Monocytes # (A) 0.4 k/uL (0-1.0); Monocytes % (A) 6 %; Neutrophils # (A) 5.4 k/uL (1.3-7.7); Neutrophils % (A) 78 %; Platelet Count 103 k/uL (150-450); RBC 3.52 m/uL (3.80-5.40); RDW 15.9 % (11.5-15.5); WBC 6.8 k/uL (3.8-10.6)
[2021-03-06 10:01] LABS: Calcium 8.6 mg/dL (8.4-10.2)
[2021-03-06 10:09] LABS: Glucose,Whole Blood 133 mg/dL (75-99)
[2021-03-06 10:25] LABS: Potassium 2.5 mmol/L (3.5-5.1)
[2021-03-06] MEDS ORDERED: POTASSIUM CHLORIDE ER 20 MEQ TAB.ER PO STA ×2 (10:32→22:23)
[2021-03-06] MEDS: DEXTROSE 5%-0.45% NACL 1,000 ML IV SCH ×2 (10:56→23:21)
[2021-03-06] MEDS ORDERED: POTASSIUM CHLORIDE 20 MEQ in WATER FOR INJECTION 1 100ML.BAG IVPB ONE (11:00)
--- NOTE | 2021-03-06 11:32 | P.PN ---
Subjective Progress Note Date: 03/06/21 Patient had an episode of hypoglycemia overnight requiring D50. Her blood glucose improved and was started on a 10% dextrose infusion. Patient is awake and alert. She is not eating much. She just refused eating her breakfast this morning. She has not been getting any of her diabetes medication here in the hospital. Patient denies any abdominal pain. She is alert and answering questions appropriately. Objective - Vital Signs Vital signs: Vital Signs Temp 98.2 F 03/06/21 11:17 Pulse 75 03/06/21 11:17 Resp 16 03/06/21 11:17 BP 125/54 03/06/21 11:17 Pulse Ox 97 03/06/21 11:17 Intake & Output 03/05/21 03/06/21 03/06/21 18:59 06:59 18:59 Output Total 600 Balance -600 Weight 76.204 kg Output: Urine 600 Other: Voiding Method Indwelling Catheter - Exam General: The patient is awake and alert, in no distress Eye: there is normal conjunctiva bilaterally. Neck: The neck is supple, there is no JVD. Cardiovascular: Normal S1-S2, no S3-S4, no murmurs. Respiratory: Lungs clear to auscultation bilaterally Gastrointestinal: Abdomen is soft, nontender Musculoskeletal: There is no pedal edema. Neurological:. Speech is normal. Skin: Skin is warm and dry . There is diffuse area of redness/candidiasis in both groin areas/perineal area - Labs CBC & Chem 7: 03/06/21 09:09 03/06/21 09:09 Labs: Abnormal Lab Results - Last 24 Hours (Table) 03/05/21 03/05/21 03/05/21 Range/Units 12:59 12:59 12:59 RBC (3.80-5.40) m/uL Hgb (11.4-16.0) gm/dL Hct (34.0-46.0) % RDW 16.1 H (11.5-15.5) % Plt Count 127 L (150-450) k/uL Neutrophils # 9.1 H (1.3-7.7) k/uL Lymphocytes # 0.6 L (1.0-4.8) k/uL Potassium 2.4 L* (3.5-5.1) mmol/L Carbon Dioxide 33 H (22-30) mmol/L BUN 54 H (7-17) mg/dL Creatinine 1.41 H (0.52-1.04) mg/dL Glucose 50 L (74-99) mg/dL POC Glucose (mg/dL) (75-99) mg/dL Magnesium 1.5 L (1.6-2.3) mg/dL AST 152 H (14-36) U/L ALT 81 H (4-34) U/L Creatine Kinase 1068 H* (30-135) U/L Troponin I 0.062 H* (0.000-0.034) ng/mL Total Protein 6.2 L (6.3-8.2) g/dL Albumin 3.4 L (3.5-5.0) g/dL HDL Cholesterol (40-60) mg/dL Urine Protein (Negative) Urine Blood (Negative) 03/05/21 03/05/21 03/05/21 Range/Units 13:24 17:50 17:50 RBC (3.80-5.40) m/uL Hgb 10.9 L (11.4-16.0) gm/dL Hct (34.0-46.0) % RDW 16.3 H (11.5-15.5) % Plt Count 123 L (150-450) k/uL Neutrophils # 8.6 H (1.3-7.7) k/uL Lymphocytes # 0.8 L (1.0-4.8) k/uL Potassium (3.5-5.1) mmol/L Carbon Dioxide (22-30) mmol/L BUN (7-17) mg/dL Creatinine (0.52-1.04) mg/dL Glucose (74-99) mg/dL POC Glucose (mg/dL) (75-99) mg/dL Magnesium (1.6-2.3) mg/dL AST (14-36) U/L ALT (4-34) U/L Creatine Kinase (30-135) U/L Troponin I 0.087 H* (0.000-0.034) ng/mL Total Protein (6.3-8.2) g/dL Albumin (3.5-5.0) g/dL HDL Cholesterol (40-60) mg/dL Urine Protein 1+ H (Negative) Urine Blood Small H (Negative) 03/05/21 03/05/21 03/05/21 Range/Units 18:17 19:03 19:25 RBC (3.80-5.40) m/uL Hgb (11.4-16.0) gm/dL Hct (34.0-46.0) % RDW (11.5-15.5) % Plt Count (150-450) k/uL Neutrophils # (1.3-7.7) k/uL Lymphocytes # (1.0-4.8) k/uL Potassium 2.4 L* (3.5-5.1) mmol/L Carbon Dioxide 33 H (22-30) mmol/L BUN 50 H (7-17) mg/dL Creatinine 1.30 H (0.52-1.04) mg/dL Glucose 29 L* (74-99) mg/dL POC Glucose (mg/dL) 26 L 104 H (75-99) mg/dL Magnesium (1.6-2.3) mg/dL AST 142 H (14-36) U/L ALT 77 H (4-34) U/L Creatine Kinase (30-135) U/L Troponin I (0.000-0.034) ng/mL Total Protein 5.5 L (6.3-8.2) g/dL Albumin 3.1 L (3.5-5.0) g/dL HDL Cholesterol (40-60) mg/dL Urine Protein (Negative) Urine Blood (Negative) 03/05/21 03/05/21 03/05/21 Range/Units 21:38 21:47 22:02 RBC (3.80-5.40) m/uL Hgb (11.4-16.0) gm/dL Hct (34.0-46.0) % RDW (11.5-15.5) % Plt Count (150-450) k/uL Neutrophils # (1.3-7.7) k/uL Lymphocytes # (1.0-4.8) k/uL Potassium (3.5-5.1) mmol/L Carbon Dioxide (22-30) mmol/L BUN (7-17) mg/dL Creatinine (0.52-1.04) mg/dL Glucose (74-99) mg/dL POC Glucose (mg/dL) 36 L 116 H (75-99) mg/dL Magnesium (1.6-2.3) mg/dL AST (14-36) U/L ALT (4-34) U/L Creatine Kinase (30-135) U/L Troponin I 0.088 H* (0.000-0.034) ng/mL Total Protein (6.3-8.2) g/dL Albumin (3.5-5.0) g/dL HDL Cholesterol (40-60) mg/dL Urine Protein (Negative) Urine Blood (Negative) 03/05/21 03/06/21 03/06/21 Range/Units 23:44 01:55 02:56 RBC (3.80-5.40) m/uL Hgb (11.4-16.0) gm/dL Hct (34.0-46.0) % RDW (11.5-15.5) % Plt Count (150-450) k/uL Neutrophils # (1.3-7.7) k/uL Lymphocytes # (1.0-4.8) k/uL Potassium (3.5-5.1) mmol/L Carbon Dioxide (22-30) mmol/L BUN (7-17) mg/dL Creatinine (0.52-1.04) mg/dL Glucose (74-99) mg/dL POC Glucose (mg/dL) 105 H 107 H 114 H (75-99) mg/dL Magnesium (1.6-2.3) mg/dL AST (14-36) U/L ALT (4-34) U/L Creatine Kinase (30-135) U/L Troponin I (0.000-0.034) ng/mL Total Protein (6.3-8.2) g/dL Albumin (3.5-5.0) g/dL HDL Cholesterol (40-60) mg/dL Urine Protein (Negative) Urine Blood (Negative) 03/06/21 03/06/21 03/06/21 Range/Units 04:14 05:14 06:07 RBC (3.80-5.40) m/uL Hgb (11.4-16.0) gm/dL Hct (34.0-46.0) % RDW (11.5-15.5) % Plt Count (150-450) k/uL Neutrophils # (1.3-7.7) k/uL Lymphocytes # (1.0-4.8) k/uL Potassium (3.5-5.1) mmol/L Carbon Dioxide (22-30) mmol/L BUN (7-17) mg/dL Creatinine (0.52-1.04) mg/dL Glucose (74-99) mg/dL POC Glucose (mg/dL) 106 H 103 H 119 H (75-99) mg/dL Magnesium (1.6-2.3) mg/dL AST (14-36) U/L ALT (4-34) U/L Creatine Kinase (30-135) U/L Troponin I (0.000-0.034) ng/mL Total Protein (6.3-8.2) g/dL Albumin (3.5-5.0) g/dL HDL Cholesterol (40-60) mg/dL Urine Protein (Negative) Urine Blood (Negative) 03/06/21 03/06/21 03/06/21 Range/Units 07:58 09:09 09:09 RBC 3.52 L (3.80-5.40) m/uL Hgb 10.2 L (11.4-16.0) gm/dL Hct 30.8 L (34.0-46.0) % RDW 15.9 H (11.5-15.5) % Plt Count 103 L (150-450) k/uL Neutrophils # (1.3-7.7) k/uL Lymphocytes # 0.8 L (1.0-4.8) k/uL Potassium 2.5 L* (3.5-5.1) mmol/L Carbon Dioxide 34 H (22-30) mmol/L BUN 47 H (7-17) mg/dL Creatinine 1.27 H (0.52-1.04) mg/dL Glucose 127 H (74-99) mg/dL POC Glucose (mg/dL) 131 H (75-99) mg/dL Magnesium (1.6-2.3) mg/dL AST (14-36) U/L ALT (4-34) U/L Creatine Kinase 630 H (30-135) U/L Troponin I (0.000-0.034) ng/mL Total Protein (6.3-8.2) g/dL Albumin (3.5-5.0) g/dL HDL Cholesterol 67 H (40-60) mg/dL Urine Protein (Negative) Urine Blood (Negative) 03/06/21 Range/Units 10:08 RBC (3.80-5.40) m/uL Hgb (11.4-16.0) gm/dL Hct (34.0-46.0) % RDW (11.5-15.5) % Plt Count (150-450) k/uL Neutrophils # (1.3-7.7) k/uL Lymphocytes # (1.0-4.8) k/uL Potassium (3.5-5.1) mmol/L Carbon Dioxide (22-30) mmol/L BUN (7-17) mg/dL Creatinine (0.52-1.04) mg/dL Glucose (74-99) mg/dL POC Glucose (mg/dL) 133 H (75-99) mg/dL Magnesium (1.6-2.3) mg/dL AST (14-36) U/L ALT (4-34) U/L Creatine Kinase (30-135) U/L Troponin I (0.000-0.034) ng/mL Total Protein (6.3-8.2) g/dL Albumin (3.5-5.0) g/dL HDL Cholesterol (40-60) mg/dL Urine Protein (Negative) Urine Blood (Negative) Assessment and Plan Assessment: This is a 75-year-old female with past medical history noted below presented to the emergency room with progressive weakness and altered mental status. Patient was evaluated in the ER and will be admitted to the hospital for further management of her medical problems noted below. 1. Acute toxo metabolic encephalopathy 2. Acute kidney injury 3. Hypokalemia 4. Hypomagnesemia 5. Acute rhabdomyolysis: Creatinine kinase improving with IV fluid hydration 6. Skin candidiasis involving groin area: I ordered nystatin powder to be applied twice daily 7. Moderate protein/calorie malnutrition: I started the patient on Ensure Plus 3 times a day. Consulted dietitian 8. Chronic medical problems: Underlying cognitive impairment/dementia, history of depression with manic episodes (requiring 6 weeks inpatient psych hospitalization last year), history of CVA, chronic orthostatic hypotension maintained on Florinef 9. Physical debility, PT/OT 10. DVT prophylaxis with subcu heparin Today, I reviewed her medication list and lab work results. Change IV fluid to D5/half-normal saline at 100 mL per hour. Potassium and magnesium replacement ordered. I asked nursing staff to wash/clean the patient's groin area and apply nystatin as ordered. Repeat electrolytes in the afternoon. Check TSH, vitamin B12, and folate with morning lab work.
[2021-03-06 12:11] LABS: Glucose,Whole Blood 114 mg/dL (75-99)
[2021-03-06] MEDS: INSULIN ASPART (NovoLOG) 100 UNIT/ML VIAL SQ SCH ×3 (12:11→22:18)
[2021-03-06 13:55] LABS: Glucose,Whole Blood 176 mg/dL (75-99)
[2021-03-06 14:48] LABS: Potassium 2.9 mmol/L (3.5-5.1)
[2021-03-06 16:28] LABS: Glucose,Whole Blood 145 mg/dL (75-99)
[2021-03-06] MEDS: ASPIRIN 325 MG TAB PO SCH (20:19)
[2021-03-06] MEDS: ATORVASTATIN 10 MG TAB PO SCH (20:22)
[2021-03-06 20:48] LABS: Glucose,Whole Blood 161 mg/dL (75-99)
[2021-03-06 22:11] LABS: Glucose,Whole Blood 127 mg/dL (75-99)
[2021-03-07 02:04] LABS: Glucose,Whole Blood 120 mg/dL (75-99)
[2021-03-07] MEDS: DEXTROSE 5%-0.45% NACL 1,000 ML IV SCH (06:06)
[2021-03-07] MEDS: INSULIN ASPART (NovoLOG) 100 UNIT/ML VIAL SQ SCH ×4 (06:44→21:05)
[2021-03-07 06:56] LABS: Glucose,Whole Blood 115 mg/dL (75-99)
[2021-03-07] MEDS: FLUDROCORTISONE 0.1 MG TAB PO SCH ×2 (08:15→21:06)
[2021-03-07] MEDS: ASPIRIN 325 MG TAB PO SCH (08:15)
[2021-03-07] MEDS: HEPARIN SODIUM,PORCINE/PF 5,000 UNIT/0.5 ML SYRINGE SQ SCH ×2 (08:15→21:05)
[2021-03-07] MEDS: MAGNESIUM OXIDE 400 MG TAB PO SCH (08:15)
[2021-03-07] MEDS: SERTRALINE 50 MG TAB PO SCH (08:15)
--- NOTE | 2021-03-07 09:17 | P.CNNES ---
History of Present Illness Consult date: 03/06/21 Requesting physician: Shilo Jauregui Reason for Consult: TIA History of Present Illness: Patient is a 75-year-old female who is seen in neurologic consultation on 03/06/2021 via teleneurology. Patient came to the hospital yesterday at 12:41 PM by ambulance. Patient is not a good historian. Per EMS flow sheet patient was sitting upright in her wheelchair in no obvious distress and breathing n ormally. Per patient's son report, she has had an overall decline in the past couple of days and noted some difficulty speaking and swallowing. Patient has a previous history of CVA but son states listed symptoms are new. Patient was also experiencing expressive aphasia and notable difficulty swallowing. Per son, patient has been unable to transfer to the toilet and has been incontinent as well. Pupils were equal and reactive, lungs sound clear/equal bilaterally. Patient had equal offal icer poultry strength, no arm drift and no facial droop. Twelve-lead EKG showed sinus rhythm. Blood glucose was 60. 25 g of dextrose administered the blood sugar increasing to 120. Patient's blood pressure was 98/60, pulse rate 75 saturation 100% and blood sugar of 60. Patient's blood test shows WBC 10.3 hemoglobin 11.7, platelets 127. PT/PTT normal, sodium 143, potassium 2.4 BUN 54, creatinine 1.41 AST 152, ALT 81. CK 1068, troponin mildly elevated 0.062 UA is negative. Blood alcohol level negative, coronal virus PCR negative. Patient's repeat potassium is still 2.5. Total cholesterol 110, LDL 28, HDL 67 and triglycerides 76. CK 630 CT head showed old left temporal lobe infarct unchanged. Mild chronic small vessel ischemic change. No acute intracranial abnormality. Chest x-ray showed no active cardiopulmonary disease. EKG showed accelerated junctional rhythm. ST and T-wave abnormality. Consider inferior ischemia, anterior lateral ischemia. Patient is known to me from previous admission to the hospital on 02/27/2020, when she has presented with subacute ischemic stroke involving the left hemispheric region in the watershed territory between left MCA/CH[employer]. MRI of the brain at that time revealed evidence of a subacute infarct in the left parieto- occipital region. EEG was normal. CTA showed unable to exclude a severe greater than 70% focal stenosis at the takeoff of the right ICA. There is retropharyngeal course of the right upper CCA and proximal right ICA. The bifurcation is high, located at the level of the angle of the mandible. Mild to moderate stenosis, just under 50% within the proximal left ICA. CTA of the head showed an 8 mm long segment of moderate to severe atherosclerotic narrowing at the A3/84 junction of the anterior cerebral artery. Moderate atherosclerotic narrowing involving the clinoid segments of the bilateral ICAs. No large vessel occlusion. No aneurysm. Patient currently is on Lipitor 80 mg, sertraline 150 mg, Florinef 0.1 mg twice a day, Lasix 20 mg, Nateglinide and lorazepam 0.5 mg twice a day. Patient's last hemoglobin A1c 5.1 on 10/26/2020. Patient tells us that she was "blowing bubbles", pointing to the bladder region. Patient not a good historian at all. She denies tobacco use, never smoked. Patient states she lives with her son. She has not walked for a long time. Patient not able to provide any more history. She is very shaky. Review of Systems Patient complains of "blowing bubbles" pointing to the bladder region. She is shaky. Patient not able to answer or provide appropriate review of systems. She gets frustrated easily. ROS unobtainable: due to mental status Past Medical History Past Medical History: Fibromyalgia, Hypertension, Rheumatoid Arthritis (RA) Additional Past Medical History / Comment(s): GOUT, confusion History of Any Multi-Drug Resistant Organisms: None Reported Past Surgical History: Appendectomy, Section, Orthopedic Surgery, Tonsillectomy, Tubal Ligation Additional Past Surgical History / Comment(s): Total L knee arthroplasty, L ankle tendon lengthening, colonoscopy/polypectomy Past Anesthesia/Blood Transfusion Reactions: No Reported Reaction Past Psychological History: Anxiety, Depression, Panic Disorder Smoking Status: Never smoker Past Alcohol Use History: None Reported Past Drug Use History: None Reported - Past Family History Father History Unknown: Yes Mother History Unknown: Yes Medications and Allergies Home Medications Medication Instructions Recorded Confirmed Type Atorvastatin [Lipitor] 80 mg PO HS 06/23/20 03/05/21 History Sertraline [Zoloft] 150 mg PO DAILY 06/23/20 03/05/21 History Fludrocortisone [Florinef] 0.1 mg PO BID #60 tab 06/28/20 03/05/21 Rx Furosemide [Lasix] 20 mg PO DAILY PRN 03/05/21 03/05/21 History LORazepam [Ativan] 0.5 mg PO BID PRN 03/05/21 03/05/21 History Nateglinide [Starlix] 120 mg PO AC-TID 03/05/21 03/05/21 History Allergies Allergy/AdvReac Type Severity Reaction Status Date / Time dicyclomine [From Bentyl] Allergy Unknown Verified 03/05/21 15:05 grass pollen Allergy Unknown Verified 03/05/21 15:05 Iodinated Contrast Media Allergy Unknown Verified 03/05/21 15:05 [Iodinated Contrast- Oral and IV Dye] mold Allergy Unknown Verified 03/05/21 15:05 oxycodone Allergy Unknown Verified 03/05/21 15:05 povidone-iodine Allergy Unknown Verified 03/05/21 15:05 [From Betadine] propoxyphene Allergy Unknown Verified 03/05/21 15:05 [From Darvocet-N] soap [From Betadine] Allergy Unknown Verified 03/05/21 15:05 Physical Examination - Vital Signs Vital Signs: Vital Signs Temp Pulse Pulse Resp BP BP Pulse Ox 03/06/21 07:53 98.4 F 75 18 105/48 96 03/06/21 05:00 76 18 105/45 97 03/06/21 01:00 80 16 93/45 98 03/05/21 23:45 86 18 101/52 98 03/05/21 22:04 79 19 113/72 98 03/05/21 19:27 70 19 93/63 99 03/05/21 18:18 96 F L 66 20 92/54 97 03/05/21 16:45 72 20 110/65 97 03/05/21 14:30 96.2 F L 71 24 106/95 99 03/05/21 12:50 70 20 100/52 99 Intake and Output 03/05/21 03/06/21 03/06/21 22:59 06:59 14:59 Output Total 600 Balance -600 Output: Urine 600 Other: Voiding Method Indwelling Catheter On examination patient is an elderly female, in no obvious distress. She is somewhat shaky, appears weak. Somewhat malnourished. Attention span, concentration and fund of knowledge is very limited. Patient knows her name and that she is in [facility]. She states it is 1998, does not know the season. She states the current president is a "alliance party", but states the name is "[place]". Speech and language functions are normal. No obvious dysarthria or aphasia. Patient can name. On cranial nerve examination her pupils are 3-4 mm, round and reacting. Extraocular muscles intact. Visual evans was very difficult to assess, somewhat inconsistent although there may be possibility of right visual field deficit. However it was unreliable. Face is symmetric, tongue protrudes to the midline. Palatal elevation and sensation is normal, hearing is slightly decreased, shoulder shrug normal. Facial sensation normal. On muscle strength testing the strength is normal in the upper extremities. In the lower extremi ties hip flexion 3+. Patient would lift the leg off the bed, but would not cooperate with formal strength testing as she would drop it down to the bed, as soon as the legs were touched. Hip adduction 5, abduction 4, knee extension 5-, ankle dorsiflexion 2-3, plantar flexion 4. Reflexes are 2 in the upper limbs and the lower limbs. Plantars are flat. Patient neglects on the right side on double simultaneous stimulation. [id number] testing head shakiness/tremulousness versus ataxia. Patient appears very shaky. Patient has a retained urinary catheter. Patient has 2+ pedal edema in the feet. There is no obvious bruit, S1 and S2 audible, abdomen soft nontender. Chest is clear. No rash. Results - Laboratory Findings CBC and BMP: 03/06/21 09:09 03/06/21 19:51 Abnormal Lab Findings: Abnormal Labs 03/05/21 03/05/21 03/05/21 12:59 12:59 12:59 RBC Hgb Hct RDW 16.1 H Plt Count 127 L Neutrophils # 9.1 H Lymphocytes # 0.6 L Potassium 2.4 L* Carbon Dioxide 33 H BUN 54 H Creatinine 1.41 H Glucose 50 L POC Glucose (mg/dL) Magnesium 1.5 L AST 152 H ALT 81 H Creatine Kinase 1068 H* Troponin I 0.062 H* Total Protein 6.2 L Albumin 3.4 L HDL Cholesterol Urine Protein Urine Blood 03/05/21 03/05/21 03/05/21 13:24 17:50 17:50 RBC Hgb 10.9 L Hct RDW 16.3 H Plt Count 123 L Neutrophils # 8.6 H Lymphocytes # 0.8 L Potassium Carbon Dioxide BUN Creatinine Glucose POC Glucose (mg/dL) Magnesium AST ALT Creatine Kinase Troponin I 0.087 H* Total Protein Albumin HDL Cholesterol Urine Protein 1+ H Urine Blood Small H 03/05/21 03/05/21 03/05/21 18:17 19:03 19:25 RBC Hgb Hct RDW Plt Count Neutrophils # Lymphocytes # Potassium 2.4 L* Carbon Dioxide 33 H BUN 50 H Creatinine 1.30 H Glucose 29 L* POC Glucose (mg/dL) 26 L 104 H Magnesium AST 142 H ALT 77 H Creatine Kinase Troponin I Total Protein 5.5 L Albumin 3.1 L HDL Cholesterol Urine Protein Urine Blood 03/05/21 03/05/21 03/05/21 21:38 21:47 22:02 RBC Hgb Hct RDW Plt Count Neutrophils # Lymphocytes # Potassium Carbon Dioxide BUN Creatinine Glucose POC Glucose (mg/dL) 36 L 116 H Magnesium AST ALT Creatine Kinase Troponin I 0.088 H* Total Protein Albumin HDL Cholesterol Urine Protein Urine Blood 03/05/21 03/06/21 03/06/21 23:44 01:55 02:56 RBC Hgb Hct RDW Plt Count Neutrophils # Lymphocytes # Potassium Carbon Dioxide BUN Creatinine Glucose POC Glucose (mg/dL) 105 H 107 H 114 H Magnesium AST ALT Creatine Kinase Troponin I Total Protein Albumin HDL Cholesterol Urine Protein Urine Blood 03/06/21 03/06/21 03/06/21 04:14 05:14 06:07 RBC Hgb Hct RDW Plt Count Neutrophils # Lymphocytes # Potassium Carbon Dioxide BUN Creatinine Glucose POC Glucose (mg/dL) 106 H 103 H 119 H Magnesium AST ALT Creatine Kinase Troponin I Total Protein Albumin HDL Cholesterol Urine Protein Urine Blood 03/06/21 03/06/21 03/06/21 07:58 09:09 09:09 RBC 3.52 L Hgb 10.2 L Hct 30.8 L RDW 15.9 H Plt Count 103 L Neutrophils # Lymphocytes # 0.8 L Potassium 2.5 L* Carbon Dioxide 34 H BUN 47 H Creatinine 1.27 H Glucose 127 H POC Glucose (mg/dL) 131 H Magnesium AST ALT Creatine Kinase 630 H Troponin I Total Protein Albumin HDL Cholesterol 67 H Urine Protein Urine Blood 03/06/21 10:08 RBC Hgb Hct RDW Plt Count Neutrophils # Lymphocytes # Potassium Carbon Dioxide BUN Creatinine Glucose POC Glucose (mg/dL) 133 H Magnesium AST ALT Creatine Kinase Troponin I Total Protein Albumin HDL Cholesterol Urine Protein Urine Blood Assessment and Plan Assessment: * Altered mental status, slurring of speech, dysphagia, rule out CVA. 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 Patient was discharged on aspirin and high-dose statins. Patient apparently does not appear to be on aspirin as per her home medication list. * Hypoglycemia documented at the scene with blood glucose 60. * Peripheral neuropathy * Right ICA stenosis * Hypertension * Rheumatoid arthritis * Fibromyalgia Plan: * MRI of the brain without contrast to evaluate for an acute stroke. * MRA of head to evaluate for intracranial stenosis. * Carotid Doppler. * 2-D echo with bubble study * Telemetry monitoring * Hemoglobin A1c, B12, folate and TSH. * Lipid panel showed cholesterol 110, LDL 28, HDL 67 and triglycerides 76 * Hypoglycemia documented at the scene with blood glucose 60. Need to watch for episodes of hypoglycemia. Patient currently on Starlix 120 mg 4 times a day, but her last hemoglobin A1c was 5.1 on 10/26/2020. Need to assess if patient needs to be on antidiabetic medication at this time, as she was hypoglycemic at the scene. * We will get collateral history from patient's son. * We will follow. Time with Patient: Greater than 30
[2021-03-07 09:53] LABS: African American GFR (CKD) 51 (>60 ml/min/1.73 sqM); Anion Gap 1 mmol/L; Blood Urea Nitrogen 39 mg/dL (7-17); Calcium 8.5 mg/dL (8.4-10.2); Carbon Dioxide 36 mmol/L (22-30); Chloride 105 mmol/L (98-107); Creatine Kinase 452 U/L (30-135); Glucose 147 mg/dL (74-99); Non-African American GFR(CKD) 44 (>60 ml/min/1.73 sqM); Potassium 3.4 mmol/L (3.5-5.1); Sodium 142 mmol/L (137-145)
--- NOTE | 2021-03-07 10:51 | US ---
EXAMINATION TYPE: US carotid duplex BILAT DATE OF EXAM: 03/07/2021 COMPARISON: CTA 2019 CLINICAL HISTORY: CVA, stenosis. CVA EXAM MEASUREMENTS: RIGHT: Peak Systolic Velocity (PSV) cm/sec ----- Right CCA: 76.8 ----- Right ICA: 185.6 ----- Right ECA: 68.6 ICA/CCA ratio: 2.4 RIGHT: End Diastole cm/sec ----- Right CCA: 13.1 ----- Right ICA: 39.3 ----- Right ECA: 0.0 LEFT: Peak Systolic Velocity (PSV) cm/sec ----- Left CCA: 74.9 ----- Left ICA: 103.2 ----- Left ECA: 100.8 ICA/CCA ratio: 1.4 LEFT: End Diastole cm/sec ----- Left CCA: 12.1 ----- Left ICA: 25.7 ----- Left ECA: 0.0 VERTEBRALS (direction of flow): Right Vertebral: Antegrade Left Vertebral: Antegrade Rhythm: Arrhythmia Heterogeneous plaque bilaterally with elevated velocities within bilateral ICA's Moeller scale images show some plaque at bilateral carotid bulbs. Abnormal increased velocities on the r ight with increased ratio. IMPRESSION: Severe atherosclerotic change bilaterally, increased velocities on the right noted. Sten osis approaching but just under 50% bilaterally is thought to remain present. Criteria for Assigning % of Stenosis / Diameter reduction (Estimation based on the indirect measurements of the internal carotid artery velocities (ICA PSV). 1. Normal (no stenosis)=ICA PSV < 125 cm/s: ratio < 2.0: ICA EDV<40 cm/s. 2. Less than 50% stenosis=ICA PSV < 125 cm/s: ratio < 2.0: ICA EDV<40 cm/s. 3. 50 to 69% stenosis=ICA PSV of 125 to 230 cm/s: ration 2.0 ? 4.0: ICA EDV 40-100 cm/s. 4. Greater than 70% stenosis to near occlusion= ICA PSV > 230 cm/s: ratio > 4.0: ICA EDV > 100 cm/s. 5. Near occlusion= ICA PSV velocities may be low or undetectable: variable ratio and ICA EDV. 6. Total occlusion=unable to detect flow.
[2021-03-07 12:21] LABS: Glucose,Whole Blood 135 mg/dL (75-99)
[2021-03-07] MEDS: POTASSIUM CHLORIDE ER 10 MEQ TAB.ER.PRT PO SCH (12:23)
--- NOTE | 2021-03-07 14:39 | MR ---
EXAMINATION TYPE: MR brain wo con DATE OF EXAM: 03/07/2021 COMPARISON: Prior MRI brain February 28, 2020. Prior CT brain 2 days ago. HISTORY: Acute CVA with acute onset neural deficit are altered mental status on admission 2 days ago. TECHNIQUE: Multiplanar, multisequence imaging of the brain and brainstem is performed without IV cont rast. FINDINGS: Mild ventricular and sulcal prominence redemonstrated. Focal and confluent areas of T2 hyperintensity throughout the deep and periventricular white matter again seen. Old infarct in the left parietal lo be posterior watershed region on axial image 19 noted. Diffusion-weighted images show small posterior areas of subtle increased signal image 168 series 505 diminished signal on ADC mapping corresponding to areas of subcortical T2 hyperintensity could reflect new areas of acute ischemia or ongoing infar ction. Cannot exclude new 2 mm focus deep left frontoparietal periventricular white matter on same di ffusion image with subtle asymmetric ovoid slightly hyperintense focus and corresponding hypodensity on ADC mapping. Midline structures demonstrate normal morphology. The craniocervical junction appears within normal limits. Normal vascular flow voids are present. The visualized sinuses are clear and the globes are i ntact. IMPRESSION: Suspect tiny areas of acute ischemia left posterior watershed on background old posterior watershed infarct left parietal lobe. Background mild diffuse cerebral atrophy and moderate to advan ra chronic small vessel ischemic change redemonstrated.
--- NOTE | 2021-03-07 14:42 | MR ---
EXAMINATION TYPE: MR angio head wo con DATE OF EXAM: 03/07/2021 COMPARISON: NONE HISTORY: CVA TECHNIQUE: Time of flight images focusing on the [place] were performed without contrast.. 2-D and 3-D postprocessing imaging is performed on a independent workstation and reviewed. FINDINGS: There is a codominant vertebrobasilar system. Vertebral arteries are patent to basilar junc tion. Slight prominence of the basilar junction. No significant focal stenosis or aneurysm in the pos terior circulation. Hypoplastic bilateral posterior communicating arteries. Anterior circulation shows some tortuous course to distal internal carotid arteries without significa nt stenosis. Small length but patent anterior communicating artery. No focal aneurysm or significant stenosis in the anterior circulation. IMPRESSION: No significant focal stenosis or aneurysmal at the level of the [place].
[2021-03-07 15:22] LABS: Folate, Serum >24.0 ng/mL
--- NOTE | 2021-03-07 15:28 | P.PN ---
Subjective Progress Note Date: 03/07/21 Patient is awake and alert. She does not have any complaints. No acute events overnight. Objective - Vital Signs Vital signs: Vital Signs Temp 97.8 F 03/07/21 11:50 Pulse 69 03/07/21 11:50 Resp 20 03/07/21 11:50 BP 143/61 03/07/21 11:50 Pulse Ox 99 03/07/21 11:50 Intake & Output 03/06/21 03/07/21 03/07/21 18:59 06:59 18:59 Intake Total 1220 800 770 Output Total 600 420 Balance 620 380 770 Weight 76.204 kg 66 kg Intake: Intake, IV Titration 820 800 480 Amount Dextrose 10% in Water 500 520 ml In Empty Bag 1 bag @ 130 mls/hr IV .[id number] [facility] Rx#:[id number] Dextrose 5%-0.45% NaCl 1, 200 800 480 000 ml @ 100 mls/hr IV . Q10H [facility] Rx#:[id number] Potassium Chloride 20 meq 100 In Water For Injection 1 100ml.bag @ 50 mls/hr IVPB ONCE ONE Rx#: [id number] Oral 400 290 Output: Urine 600 420 Other: Voiding Method Indwelling Catheter Indwelling Catheter Indwelling Catheter - Exam General: The patient is awake and alert, in no distress Eye: there is normal conjunctiva bilaterally. Neck: The neck is supple, there is no JVD. Cardiovascular: Normal S1-S2, no S3-S4, no murmurs. Respiratory: Lungs clear to auscultation bilaterally Gastrointestinal: Abdomen is soft, nontender Musculoskeletal: There is no pedal edema. Neurological:. Speech is normal. Skin: Skin is warm and dry . There is diffuse area of redness/candidiasis in both groin areas/perineal area - Labs CBC & Chem 7: 03/06/21 09:09 03/07/21 08:54 Labs: Abnormal Lab Results - Last 24 Hours (Table) 03/06/21 03/06/21 03/06/21 Range/Units 16:27 19:51 20:07 Potassium 3.3 L (3.5-5.1) mmol/L Carbon Dioxide (22-30) mmol/L BUN (7-17) mg/dL Creatinine (0.52-1.04) mg/dL Glucose (74-99) mg/dL POC Glucose (mg/dL) 145 H 161 H (75-99) mg/dL Creatine Kinase (30-135) U/L Vitamin B12 (200.0-944.0) pg/mL 03/06/21 03/07/21 03/07/21 Range/Units 22:09 02:02 06:40 Potassium (3.5-5.1) mmol/L Carbon Dioxide (22-30) mmol/L BUN (7-17) mg/dL Creatinine (0.52-1.04) mg/dL Glucose (74-99) mg/dL POC Glucose (mg/dL) 127 H 120 H 115 H (75-99) mg/dL Creatine Kinase (30-135) U/L Vitamin B12 (200.0-944.0) pg/mL 03/07/21 03/07/21 Range/Units 08:54 12:06 Potassium 3.4 L (3.5-5.1) mmol/L Carbon Dioxide 36 H (22-30) mmol/L BUN 39 H (7-17) mg/dL Creatinine 1.22 H (0.52-1.04) mg/dL Glucose 147 H (74-99) mg/dL POC Glucose (mg/dL) 135 H (75-99) mg/dL Creatine Kinase 452 H (30-135) U/L Vitamin B12 1072.0 H (200.0-944.0) pg/mL Assessment and Plan Assessment: This is a 75-year-old female with past medical history noted below presented to the emergency room with progressive weakness and altered mental status. Patient was evaluated in the ER and will be admitted to the hospital for further management of her medical problems noted below. 1. Acute toxo metabolic encephalopathy: Seen and evaluated by neurology. Patient had computed tomography scan of the brain, MRI of the brain, and MRA of the head with no acute findings. 2. Acute kidney injury 3. Hypokalemia 4. Hypomagnesemia 5. Acute rhabdomyolysis: Creatinine kinase improving with IV fluid hydration 6. Skin candidiasis involving groin area: I ordered nystatin powder to be applied twice daily 7. Obstructive uropathy status post Carranza catheter insertion on . May consider voiding trial within the next couple of days 8. History of type 2 diabetes with episodes of hypoglycemia on presentation and low by mouth intake. Diabetes medication discontinue 9. Moderate protein/calorie malnutrition: I started the patient on Ensure Plus 3 times a day. Consulted dietitian 10. Chronic medical problems: Underlying cognitive impairment/dementia, history of depression with manic episodes (requiring 6 weeks inpatient psych hospitalization last year), history of CVA, chronic orthostatic hypotension maintained on Florinef 11. Physical debility, PT/OT 12. DVT prophylaxis with subcu heparin Today, I reviewed her medication list and lab work results. Potassium and magnesium replaced. TSH, vitamin B12, and folate within normal range. Awaiting placement to ECF possibly tomorrow
[2021-03-07 15:33] VITALS: BMI 22.1
[2021-03-07 16:44] LABS: Hemoglobin A1C 4.9 % (4.0-6.0)
[2021-03-07 17:16] LABS: Glucose,Whole Blood 105 mg/dL (75-99)
[2021-03-07 20:55] LABS: Glucose,Whole Blood 136 mg/dL (75-99)
[2021-03-07] MEDS: ATORVASTATIN 10 MG TAB PO SCH (21:06)
--- NOTE | 2021-03-08 01:10 | P.PN ---
Subjective Progress Note Date: 03/07/21 Patient was seen for a follow-up. Patient is sitting comfortably in the chair. Patient offers no complaints. Denies any new focal symptoms. No syncopal spells. No dizziness. Objective - Vital Signs Vital signs: Vital Signs Temp 97.5 F L 03/07/21 16:34 Pulse 63 03/07/21 16:34 Resp 20 03/07/21 16:34 BP 145/65 03/07/21 16:34 Pulse Ox 99 03/07/21 16:34 Intake & Output 03/07/21 03/07/21 03/08/21 06:59 18:59 06:59 Intake Total 800 1250 Output Total 420 500 Balance 380 750 Weight 66 kg 66 kg Intake: Intake, IV Titration 800 480 Amount Dextrose 5%-0.45% NaCl 1, 800 480 000 ml @ 100 mls/hr IV . Q10H [facility] Rx#:[id number] Oral 770 Output: Urine 420 500 Other: Voiding Method Indwelling Catheter Indwelling Catheter - Exam On examination patient is an elderly female, very pleasant, in no acute distress. Her speech and language functions are normal. No aphasia or dysarthria. On cranial examination pupils are round and reactive to light, visual evans are full, extraocular muscles are intact with no nystagmus. Face is symmetric, tongue protrudes to the midline. Palatal elevation is normal, hearing and shoulder shrug normal. Facial sensation normal. On muscle strength testing there is no pronator drift and the strength is normal in the arms distally and proximally. In the lower limbs hip flexion is 3+4-, knee extension 5, ankle dorsiflexion 2-3 and plantars flexion 5. Reflexes are 2 at the biceps, 1 brachioradialis, 2 at the right knee, 0 on the left. Absent ankles bi laterally. Sensory to touch is equal. No obvious ataxia for [id number] testing. Patient has moderate peripheral edema. S1 and S2 audible. Abdomen soft nontender. - Labs CBC & Chem 7: 03/06/21 09:09 03/08/21 08:11 Labs: Abnormal Lab Results - Last 24 Hours (Table) 03/07/21 03/07/21 03/07/21 Range/Units 02:02 06:40 08:54 Potassium 3.4 L (3.5-5.1) mmol/L Carbon Dioxide 36 H (22-30) mmol/L BUN 39 H (7-17) mg/dL Creatinine 1.22 H (0.52-1.04) mg/dL Glucose 147 H (74-99) mg/dL POC Glucose (mg/dL) 120 H 115 H (75-99) mg/dL Creatine Kinase 452 H (30-135) U/L Vitamin B12 1072.0 H (200.0-944.0) pg/mL 03/07/21 03/07/21 03/07/21 Range/Units 12:06 17:01 20:54 Potassium (3.5-5.1) mmol/L Carbon Dioxide (22-30) mmol/L BUN (7-17) mg/dL Creatinine (0.52-1.04) mg/dL Glucose (74-99) mg/dL POC Glucose (mg/dL) 135 H 105 H 136 H (75-99) mg/dL Creatine Kinase (30-135) U/L Vitamin B12 (200.0-944.0) pg/mL Assessment and Plan Assessment: * Altered mental status, slurring of speech, dysphagia, rule out CVA. Differential also includes hypoglycemia with focal symptoms, as patient's blood glucose was 60 per EMS report. 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 Patient was discharged on aspirin and high-dose statins. Patient apparently does not appear to be on aspirin as per her home medication list. * Hypoglycemia documented at the scene with blood glucose 60. * Peripheral neuropathy * Right ICA stenosis * Hypertension * Rheumatoid arthritis * Fibromyalgia Plan: * MRI of the brain without contrast: Suspect tiny areas of acute ischemia left posterior watershed on background old posterior watershed infarct left parietal lobe. Background mild diffuse cerebral atrophy and moderate to advanced chronic small vessel ischemic change redemonstrated. * MRA of head revealed no significant focal stenosis or aneurysm at the level of [place]. * Carotid Doppler showed severe atherosclerotic changes bilaterally, increased velocities on the right noted. Stenosis approaching but just under 50% bilaterally. * 2-D echo with bubble study completed, results pending. * Telemetry monitoring * Hemoglobin A1c 4.9, B12 1072, folate > 24, and TSH 2.35. * Lipid panel showed cholesterol 110, LDL 28, HDL 67 and triglycerides 76 * Hypoglycemia documented at the scene with blood glucose 60. Need to watch for episodes of hypoglycemia. Patient currently on Starlix 120 mg 4 times a day, but her last hemoglobin A1c was 5.1 on 10/26/2020 and current A1c 4.9. Need to assess if patient needs to be on antidiabetic medication at this time, as she was hypoglycemic at the scene. * Tried to contact patient's son to obtain collateral history, not available on the phone. * Dr. Gokul Hawk to resume neurology service from morning.
[2021-03-08 05:36] VITALS: RESP 20; TEMP 98.4
[2021-03-08] MEDS: INSULIN ASPART (NovoLOG) 100 UNIT/ML VIAL SQ SCH ×2 (06:43→12:11)
--- NOTE | 2021-03-08 07:26 | ECHOF ---
Referral Reason:CVA MEASUREMENTS -------- HEIGHT: 172.7 cm WEIGHT: 65.8 kg BP: 114/59 RVIDd: 3.0 cm (< 3.3) IVSd: 1.2 cm (0.6 - 1.1) LVIDd: 3.9 cm (3.9 - 5.3) LVPWd: 1.4 cm (0.6 - 1.1) IVSs: 1.6 cm LVIDs: 2.7 cm LVPWs: 1.6 cm LAESV Index (A-L): 58.95 ml/m Ao Diam: 3.2 cm (2.0 - 3.7) AV Cusp: 1.9 cm (1.5 - 2.6) MV E Micah: 0.91 m/s MV DecT: 195 ms MV A Micah: 1.12 m/s MV E/A Ratio: 0.82 RAP: 5.00 mmHg RVSP: 24.29 mmHg FINDINGS -------- Sinus rhythm with extra systolic beats. This was a technically adequate study. The left ventricular size is normal. There is mild concentric left ventricular hypertrophy. Overa ll left ventricular systolic function is mildly impaired with, an EF between 45 - 50 %. The right ventricle is normal in size. LA is severely dilated >40 ml/m2 The right atrial size is normal. Contrast study was performed with 2 iv injections of 8 ccs of agitated normal saline, at rest, and wi th cough. NEGATIVE saline study for PFO Interatrial and interventricular septum intact. The aortic valve is trileaflet, and appears structurally normal. No aortic stenosis or regurgitation. Mild mitral annular calcification present. Moderate mitral regurgitation is present. Mild tricuspid regurgitation present. Right ventricular systolic pressure is normal at < 35 mmHg. The right ventricular systolic pressure, as measured by Doppler, is 24.29mmHg. The pulmonic valve was not well visualized. There is no pulmonic regurgitation present. The aortic root size is normal. IVC Not well visulized. There is no pericardial effusion. CONCLUSIONS -------- 1. There is mild concentric left ventricular hypertrophy. 2. Overall left ventricular systolic function is mildly impaired with, an EF between 45 - 50 %. 3. LA is severely dilated >40 ml/m2 4. Contrast study was performed with 2 iv injections of 8 ccs of agitated normal saline, at rest, and with cough. 5. Interatrial and interventricular septum intact. 6. The aortic valve is trileaflet, and appears structurally normal. No aortic stenosis or regurgitati on. 7. Moderate mitral regurgitation is present. 8. Mild tricuspid regurgitation present. BRIAR CUTTER: Jeanine Vicente RDCS
[2021-03-08] MEDS: FLUDROCORTISONE 0.1 MG TAB PO SCH (08:07)
[2021-03-08] MEDS: ASPIRIN 325 MG TAB PO SCH (08:07)
[2021-03-08] MEDS: SERTRALINE 50 MG TAB PO SCH (08:07)
[2021-03-08] MEDS: POTASSIUM CHLORIDE ER 10 MEQ TAB.ER.PRT PO SCH (08:08)
[2021-03-08] MEDS: HEPARIN SODIUM,PORCINE/PF 5,000 UNIT/0.5 ML SYRINGE SQ SCH (08:08)
[2021-03-08 08:18] LABS: Glucose,Whole Blood 88 mg/dL (75-99)
[2021-03-08] MEDS ORDERED: MAGNESIUM OXIDE 400 MG TAB PO SCH (09:00)
--- NOTE | 2021-03-08 09:42 | P.DS ---
Providers Date of admission: 03/05/21 16:25 Expected date of discharge: 03/08/21 Attending physician: Vu Jaquez Consults: 03/05/21 17:51 Consult Physician Routine Consulting Provider: Eleni Marte Consult Reason/Comments: TIA Do you want consulting provider notified?: Yes Primary care physician: Jelani Grajeda MD Hospital Course: This is a 75-year-old female with past medical history noted below presented to the emergency room with progressive weakness and altered mental status. Patient was evaluated in the ER and will be admitted to the hospital for further manag ement of her medical problems noted below. 1. Acute toxo metabolic encephalopathy: Secondary to #2 and 5 below. Seen and evaluated by neurology. Patient had computed tomography scan of the brain, MRI of the brain, and MRA of the head with no acute findings. 2. Acute kidney injury with underlying stage IIIC daily. Creatinine improved 3. Hypokalemia 4. Hypomagnesemia 5. Acute rhabdomyolysis: Creatinine kinase improved with IV fluid hydration 6. Skin candidiasis involving groin area: I ordered nystatin powder to be applied twice daily 7. Obstructive uropathy status post Carranza catheter insertion on . Voiding trial within the next couple of days 8. History of type 2 diabetes with episodes of hypoglycemia on presentation and low by mouth intake. Diabetes medication discontinued. A1c 4.9 9. Moderate protein/calorie malnutrition: I started the patient on Ensure Plus 3 times a day. Consulted dietitian 10. Chronic medical problems: Underlying cognitive impairment/dementia, history of depression with manic episodes (requiring 6 weeks inpatient psych hospitalization last year), history of CVA, chronic orthostatic hypotension maintained on Florinef 11. Physical debility, PT/OT Patient will be discharged to [facility] on the [place] for rehab. For further details about this hospitalization please refer to the electronic chart. Patient Condition at Discharge: Stable Plan - Discharge Summary Discharge Rx Participant: No New Discharge Prescriptions: New Potassium Chloride ER [K-Dur 10] 10 meq PO DAILY #30 tab.er.prt Atorvastatin [Lipitor] 10 mg PO HS tab Magnesium Oxide [Mag-Ox] 400 mg PO DAILY #30 tab Continue Sertraline [Zoloft] 150 mg PO DAILY Fludrocortisone [Florinef] 0.1 mg PO BID #60 tab Changed LORazepam [Ativan] 0.5 mg PO BID PRN #6 tab PRN Reason: Anxiety Discontinued Atorvastatin [Lipitor] 80 mg PO HS Furosemide [Lasix] 20 mg PO DAILY PRN PRN Reason: Edema Nateglinide [Starlix] 120 mg PO AC-TID Discharge Medication List Sertraline [Zoloft] 150 mg PO DAILY 06/23/20 [History] Fludrocortisone [Florinef] 0.1 mg PO BID #60 tab 06/28/20 [Rx] Atorvastatin [Lipitor] 10 mg PO HS tab 03/08/21 [Rx] LORazepam [Ativan] 0.5 mg PO BID PRN #6 tab 03/08/21 [Rx] Magnesium Oxide [Mag-Ox] 400 mg PO DAILY #30 tab 03/08/21 [Rx] Potassium Chloride ER [K-Dur 10] 10 meq PO DAILY #30 tab.er.prt 03/08/21 [Rx] Follow up Appointment(s)/Referral(s): Chris Suárez [STAFF PHYSICIAN] - 1-2 days Discharge Disposition: TRANSFER TO SNF/ECF
[2021-03-08 09:51] LABS: Calcium 8.7 mg/dL (8.4-10.2); Potassium 3.7 mmol/L (3.5-5.1)
[2021-03-08 11:54] VITALS: BP 105/50; PULSE 83
[2021-03-08 11:58] LABS: Glucose,Whole Blood 99 mg/dL (75-99)
--- NOTE | 2021-03-08 13:44 | P.PN ---
Subjective Progress Note Date: 03/08/21 On seeing the patient for the first time, patient was being seen by Dr. Marte for neurological management and refer to his notes for detailed history. Per the patient's nurse, the patient continues to have some confusion but is following commands. MRI of the brain is reported as suspect tiny area of acute ischemic left posterior watershed on background of old posterior watershed infarct over the left parietal lobe. Background mild diffuse cerebral atrophy and moderate to advanced chronic small vessel ischemic changes redemonstrated. MRA of the head is reported as no significant focal stenosis or aneurysm at the level [place]. 2-D echo was reported as mild concentric left ventricular hypertrophy. Overall left ventricle Roni function is mildly impaired with ejection fraction 45-50%. Left atrium is severely dilated. Ensure arterial and intraventricular septum is intact. Negative for PFO. Objective - Vital Signs Vital signs: Vital Signs Temp 98.4 F 03/08/21 11:53 Pulse 83 03/08/21 11:53 Resp 20 03/08/21 11:53 BP 105/50 03/08/21 11:53 Pulse Ox 96 03/08/21 11:53 Intake & Output 03/07/21 03/08/21 03/08/21 18:59 06:59 18:59 Intake Total 1250 240 Output Total 500 800 Balance 750 -800 240 Weight 66 kg 67 kg Intake: Intake, IV Titration 480 Amount Dextrose 5%-0.45% NaCl 1, 480 000 ml @ 100 mls/hr IV . Q10H [facility] Rx#:[id number] Oral 770 240 Output: Urine 500 800 Other: Voiding Method Indwelling Catheter Indwelling Catheter Indwelling Catheter - Exam GENERAL: The patient is lying in bed and is not in acute distress. NEUROLOGICAL: Higher mental function: The patient is awake, alert, oriented to self. She knows she is in the hospital but could not tell me name. She is able to correctly name object such as bottle. She is following simple command. No aphasia or neglect from limited exam. Cranial nerves: The pupils are round, equal and reactive to light. Visual evans are hard to assess because of cooperation. Extraocular movement is intact no nystagmus is noted. The facial strength is normal throughout. Mild dysarthria is noted. Shoulder shrug is normal bilaterally. Motor: Gait is deferred. The strength is able to lift billateral upper extremities without drift. Hand trust advisor are 5-/5 bilaterally. In the lower limbs hip flexion is 3+4-, knee extension 5, ankle dorsiflexion 2-3 and plantars flexion 5. Sensation: Sensation is normal to touch throughout. Reflexes (right/left): Reflexes are 2 at the biceps, 1 brachioradialis, 2 at the right knee, 0 on the left. Absent ankles bilaterally. Plantars are downgoing bilaterally. - Labs CBC & Chem 7: 03/06/21 09:09 03/08/21 08:11 Labs: Abnormal Lab Results - Last 24 Hours (Table) 03/07/21 03/07/21 03/07/21 Range/Units 08:54 17:01 20:54 Chloride (98-107) mmol/L Carbon Dioxide (22-30) mmol/L BUN (7-17) mg/dL Creatinine (0.52-1.04) mg/dL Glucose (74-99) mg/dL POC Glucose (mg/dL) 105 H 136 H (75-99) mg/dL Vitamin B12 1072.0 H (200.0-944.0) pg/mL 03/08/21 Range/Units 08:11 Chloride 108 H (98-107) mmol/L Carbon Dioxide 34 H (22-30) mmol/L BUN 38 H (7-17) mg/dL Creatinine 1.11 H (0.52-1.04) mg/dL Glucose 114 H (74-99) mg/dL POC Glucose (mg/dL) (75-99) mg/dL Vitamin B12 (200.0-944.0) pg/mL Assessment and Plan Assessment: * Altered mental status, slurring of speech, dysphagia: due to acute ischemic stroke (tiny area of acute ischemic left posterior watershed on background of old posterior watershed infarct over the left parietal lobe). Etiology: Un known. Possiby embolic (cardioembolic). * Also component of metabolic encephalopathy with hypoglycemia with focal symptoms, as patient's blood glucose was 60 per EMS report. 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 Patient was discharged on aspirin and high-dose statins. Patient apparently does not appear to be on aspirin as per her home medication list. * Peripheral neuropathy * Right ICA stenosis * Hypertension * Rheumatoid arthritis * Fibromyalgia Plan: MRI of the brain is reported as suspect tiny area of acute ischemic left posterior watershed on background of old posterior watershed infarct over the left parietal lobe. Background mild diffuse cerebral atrophy and moderate to advanced chronic small vessel ischemic changes redemonstrated. MRA of the head is reported as no significant focal stenosis or aneurysm at the level [place]. 2-D echo was reported as mild concentric left ventricular hypertrophy. Overall left ventricle Roni function is mildly impaired with ejection fraction 45-50%. Left atrium is severely dilated. Ensure arterial and intraventricular septum is intact. Negative for PFO. Carotid Doppler showed severe atherosclerotic changes bilaterally, increased velocities on the right noted. Stenosis approaching but just under 50% bilaterally. Hemoglobin A1c 4.9, B12 1072, folate > 24, and TSH 2.35. Telemetry monitoring Lipid panel showed cholesterol 110, LDL 28, HDL 67 and triglycerides 76 On aspirin 325 daily. Because of the acute ischemic stroke I stopped ASA 325mg and started the patient on ASA 81mg daily and Plavix 75mg daily. Patient needs to be on dual antiplateletes for 21 days then discontinue Plavix and remain on ASA 81mg daily. On Lipitor 10 mg daily. I'll increase Lipitor to 40 mg daily. I ordered an event monitor. Please avoid any further hypoglycemic events. Recommend for the patient to follow-up with cardiology as an outpatient. Will defer the rest of medical management to the primary team. The patient needs to follow-up with a neurologist as outpatient within 1-2 weeks. The patient is pending to be discharged to subacute rehab. The plan is discussed with the patient's nurse. Gokul Hawk MD Neuro-Hospitalist Time with Patient: Less than 30
[2021-03-08 16:53] LABS: Glucose,Whole Blood 83 mg/dL (75-99)
[2021-03-08] MEDS ORDERED: ATORVASTATIN 40 MG TAB PO SCH (21:00)
[2021-03-09] MEDS ORDERED: ASPIRIN 81 MG PO SCH (09:00)
[2021-03-09] MEDS ORDERED: CLOPIDOGREL 75 MG TAB PO SCH (09:00)
--- NOTE | 2021-03-10 11:58 | CDI ---
Documentation Clarification Form Date: 03/09/2021 02:28:00 PM From: Sara Barron Phone: If you have a question about this query, please contact Conchis Calderon, Director Clinical Data at [phone] between 8am and 5pm. PHILIP Reagan Admit Date: 03/05/2021 04:25:00 PM Patient Name: Cathryn Napoles Visit Number: [id number] Discharge Date: 03/08/2021 05:02:00 PM ATTENTION: The Clinical Documentation Specialists (CDI) and [facility] Coding Staff appreciate your assistance in clarifying documentation. Please respond to the clarification below the line at the bottom and electronically sign. The CDI & [facility] Coding staff will review the response and follow-up if needed. Please note: Queries are made part of the Legal Health Record. If you have any questions, please contact the author of this message via ITS. Dr. Vu Jaquez Ischemic CVA is documented is documented in 03/08 PN by neurology. "Altered mental status, slurring of speech, dysphagia due to acute ischemic stroke. This documentation is not in [facility]. Additional clarification regarding the ischemic CVA is requested. History/risk factors: Patient has history of stroke Clinical Indicators MRI/MRA: Tiny are of acute ischemic left posterior watershed on background of old posterior watershed infarct over the left parietal lobe. Treatment: Aspirin and high dose statins Please clarify if patient had acute ischemic stroke and if so, Cause of Stroke/CVA: [ ] Stenosis/Occlusion carotid artery [ ] Embolic [ ] Thrombolytic [ ] Hypertension [ ] Other (please specify) [ ] Unable to Determine No acute stroke MTDD
== END 2021-03-08 17:02 | DRG 557 ==
LOC: EC 12:41 → 3SCARD 16:25
PROVIDERS: ADMIT Internal Medicine; ATTEND Internal Medicine
DX: M62.82 Rhabdomyolysis (principal); G92 Toxic encephalopathy; N17.9 Acute kidney failure, unspecified; E44.0 Moderate protein-calorie malnutrition; I65.21 Occlusion and stenosis of right carotid artery; I69.320 Aphasia following cerebral infarction; M06.9 Rheumatoid arthritis, unspecified; M79.7 Fibromyalgia; N13.9 Obstructive and reflux uropathy, unspecified; R13.10 Dysphagia, unspecified; R62.7 Adult failure to thrive; R79.89 Other specified abnormal findings of blood chemistry; Z20.822 Contact with and (suspected) exposure to COVID-19; G62.9 Polyneuropathy, unspecified; F41.0 Panic disorder [episodic paroxysmal anxiety]; B37.2 Candidiasis of skin and nail; E11.649 Type 2 diabetes mellitus with hypoglycemia without coma; Z68.22 Body mass index [BMI] 22.0-22.9, adult; E83.42 Hypomagnesemia; E86.0 Dehydration; E87.6 Hypokalemia; F03.90 Unspecified dementia, unspecified severity, without behavioral disturbance, psychotic disturbance, mood disturbance, and anxiety; F32.9 Major depressive disorder, single episode, unspecified; N18.30 Chronic kidney disease, stage 3 unspecified; I12.9 Hypertensive chronic kidney disease with stage 1 through stage 4 chronic kidney disease, or unspecified chronic kidney disease; I95.9 Hypotension, unspecified; M10.9 Gout, unspecified; R47.81 Slurred speech; Z90.89 Acquired absence of other organs; Z98.51 Tubal ligation status; Z90.49 Acquired absence of other specified parts of digestive tract; Z88.5 Allergy status to narcotic agent; Z88.8 Allergy status to other drugs, medicaments and biological substances; Z91.041 Radiographic dye allergy status; Z86.010 Personal history of colon polyps; Z96.652 Presence of left artificial knee joint; Z79.899 Other long term (current) drug therapy
CPT/HCPCS: 36415; 70450; 70544; 70551; 71046; 80048; 80053; 80061; 80320; 81001; 82550; 82607; 82746; 83036; 83735; 84132; 84443; 84484; 85025; 85610; 85730; 87635; 93005; 93306; 93880; 96361; 96365; 99291

== ENCOUNTER 2022-10-18 19:41 | Emergency (ER) | payer MEDICARE, OTHER ==
[2022-10-18 19:49] VITALS: RESP 16
[2022-10-18] MEDS ORDERED: SODIUM CHLORIDE 0.9% 1,000 ML IV ONE (20:00)
[2022-10-18] MEDS ORDERED: SODIUM CHLORIDE 0.9% 1,000 ML IV STA (20:00)
[2022-10-18] MEDS ORDERED: LORazepam 2 MG/ML INJ IV STA (20:25)
[2022-10-18 20:26] LABS: Basophils # (A) 0.1 k/uL (0-0.2); Basophils % (A) 0 %; Eosinophils % (A) 0 %; Hypochromasia Marked; Lymphocytes # (A) 1.1 k/uL (1.0-4.8); Lymphocytes % (A) 5 %; MCH 30.3 pg (25.0-35.0); MCHC 31.4 g/dL (31.0-37.0); MCV 96.5 fL (80.0-100.0); Mean Platelet Volume 7.9; Monocytes # (A) 0.7 k/uL (0-1.0); Monocytes % (A) 3 %; Neutrophils # (A) 21.3 k/uL (1.3-7.7); Neutrophils % (A) 91 %; Platelet Count 349 k/uL (150-450); RBC 1.72 m/uL (3.80-5.40); RDW 15.9 % (11.5-15.5); WBC 23.4 k/uL (3.8-10.6)
[2022-10-18 20:27] LABS: HCT 16.6 % (34.0-46.0); HGB 5.2 gm/dL (11.4-16.0)
[2022-10-18 20:30] LABS: INR 1.2 (<1.2); Partial Thromboplastin Time 23.5 sec (22.0-30.0); Prothrombin Time 11.9 sec (9.0-12.0)
[2022-10-18 20:31] LABS: Albumin 2.2 g/dL (3.5-5.0); Calcium 7.9 mg/dL (8.4-10.2); Potassium 3.3 mmol/L (3.5-5.1); Total Bilirubin 1.2 mg/dL (0.2-1.3); Total Protein 4.7 g/dL (6.3-8.2)
[2022-10-18 20:51] LABS: Bacteria,Urine Many /hpf; Mucus,Urine Rare /hpf; RBC,Urine 1 /hpf (0-5); Squamous Epithelial Cell,Urine <1 /hpf (0-4); WBC,Urine 47 /hpf (0-5)
--- NOTE | 2022-10-18 20:51 | XR ---
EXAMINATION TYPE: XR chest 1V portable DATE OF EXAM: 10/18/2022 COMPARISON: 03/05/2021 HISTORY: Fever TECHNIQUE: FINDINGS: There is some patchy airspace infiltrate in the right mid lung and the left lower lobe. Hea rt size is fairly normal. No definite heart failure. No pleural effusion. There are chest leads. Bony thorax appears intact IMPRESSION: Bilateral pneumonia which appears new compared to old exam.
[2022-10-18 21:08] LABS: Appearance,Urine Cloudy (Clear); Bilirubin,Urine Negative (Negative); Blood,Urine Negative (Negative); Color,Urine Yellow; Glucose,Urine (UA) Negative (Negative); Ketones,Urine Negative (Negative); Leukocyte Esterase,Urine Large (Negative); Nitrite,Urine Positive (Negative); PH, Urine 5.5 (5.0-8.0); Protein,Urine 1+ (Negative); Specific Gravity,Urine 1.018 (1.001-1.035)
[2022-10-18] MEDS ORDERED: PNEUMONIA PROTOCOL UTILIZED 1 EACH MISC PO PRN (21:26)
[2022-10-18] MEDS ORDERED: AZITHROMYCIN 500 MG in SODIUM CHLORIDE 0.9% 250 ML IVPB STA (21:26)
--- NOTE | 2022-10-18 21:51 | CT ---
EXAMINATION TYPE: CT brain wo con DATE OF EXAM: 10/18/2022 COMPARISON: 03/05/2021 HISTORY: AMS CT DLP: 1158.4 mGycm Automated exposure control for dose reduction was used. There is a 5 x 3 cm area of hypodensity in the cook-white matter left posterior temporal lobe. There is no mass effect or midline shift. No sign of intracranial hemorrhage. There is some mild hypodensit y in the periventricular white matter. There is 5 mm lacunar infarct anterior right internal capsule and left anterior internal capsule. Calvarium is intact. There is mucosal thickening in the ethmoid a nd right maxillary sinus. IMPRESSION: Old left posterior temporal lobe infarct with encephalomalacia. No change compared to old exam. Chron ic small vessel ischemia. There is maxillary and ethmoid sinusitis that appears new compared to old e xam.
--- NOTE | 2022-10-18 22:19 | ED ---
Altered Mental Status HPI - General Chief Complaint: Altered Mental Status Stated Complaint: Neuro Deficits Time Seen by Provider: 10/18/22 19:42 Source: family Mode of arrival: EMS Limitations: altered mental status, physical limitation - History of Present Illness Initial Comments: This patient is 77-year-old woman who is brought to have evaluation for altered mental status. The patient reportedly had been seen by his son in the morning around 8:30 or 9 AM before he went to work. He states that she [place] in [place] and he went to check her after work tonight and he found her to be nonverbal and poorly responsive. He does note that over the past 3-4 days she has had a little bit of cough and a lot of congestion with nasal drainage. The patient does have history of previous strokes, and he was concerned she may have had another stroke today. Patient is not able to answer most questions. She was able to state that she was not having any pain MD Complaint: altered mental status -: hour(s) Severity: severe Consistency of Symptoms: unknown Context: history of similar presentation - Related Data Home Medications Medication Instructions Recorded Confirmed No Known Home Medications 10/18/22 10/18/22 Allergies Allergy/AdvReac Type Severity Reaction Status Date / Time dicyclomine [From Bentyl] Allergy Unknown Verified 10/18/22 22:04 grass pollen Allergy Unknown Verified 10/18/22 22:04 Iodinated Contrast Media Allergy Unknown Verified 10/18/22 22:04 [Iodinated Contrast- Oral and IV Dye] mold Allergy Unknown Verified 10/18/22 22:04 oxycodone Allergy Unknown Verified 10/18/22 22:04 povidone-iodine Allergy Unknown Verified 10/18/22 22:04 [From Betadine] propoxyphene Allergy Unknown Verified 10/18/22 22:04 [From Darvocet-N] soap [From Betadine] Allergy Unknown Verified 10/18/22 22:04 Review of Systems ROS Statement: Those systems with pertinent positive or pertinent negative responses have been documented in the HPI. ROS Other: All systems not noted in ROS Statement are negative. Limitations: ROS unobtainable due to patients medical condition Constitutional: Reports: fever ENT: Reports: congestion Respiratory: Reports: cough Cardiovascular: Denies: chest pain Gastrointestinal: Reports: diarrhea. Denies: abdominal pain Musculoskeletal: Denies: back pain Neurological: Denies: headache Past Medical History Past Medical History: Fibromyalgia, Hypertension, Rheumatoid Arthritis (RA) Additional Past Medical History / Comment(s): GOUT, confusion History of Any Multi-Drug Resistant Organisms: CRE Date of last positivie culture/infection: 03/10/21 MDRO Source:: URINE Past Surgical History: Appendectomy, Section, Orthopedic Surgery, T onsillectomy, Tubal Ligation Additional Past Surgical History / Comment(s): Total L knee arthroplasty, L ankle tendon lengthening, colonoscopy/polypectomy Past Anesthesia/Blood Transfusion Reactions: No Reported Reaction Past Psychological History: Anxiety, Depression, Panic Disorder Smoking Status: Never smoker Past Alcohol Use History: None Reported Past Drug Use History: None Reported - Past Family History Father History Unknown: Yes Mother History Unknown: Yes General Exam Limitations: altered mental status, physical limitation General appearance: alert, anxious Head exam: Present: atraumatic, normocephalic Eye exam: Present: normal appearance, PERRL, EOMI. Absent: scleral icterus, conjunctival injection, nystagmus ENT exam: Present: mucous membranes dry Neck exam: Present: normal inspection, full ROM. Absent: tenderness, meningismus Respiratory exam: Present: rales, rhonchi. Absent: wheezes, stridor, accessory muscle use, decreased breath sounds, prolonged expiratory Cardiovascular Exam: Present: regular rate, normal rhythm, normal heart sounds, systolic murmur. Absent: diastolic murmur, rubs, gallop GI/Abdominal exam: Present: soft. Absent: distended, tenderness, guarding, rebound, rigid, mass Rectal exam: Present: heme (+) stool, other (Excoriations) Extremities exam: Present: normal inspection, normal capillary refill. Absent: pedal edema, calf tenderness Back exam: Present: normal inspection Neurological exam: Present: altered, CN II-XII intact, other (Patient is alert, but is not able to comply with the neuro exam. She does move all 4 extremities with no evident weakness of the extremities. No dysarthria.). Absent: oriented X3 (Oriented to person and recognizes she is in the hospital), motor sensory deficit Skin exam: Present: warm, dry, intact, pallor. Absent: rash Course Vital Signs 10/18/22 10/18/22 10/19/22 19:42 22:03 00:04 Temperature 98.1 F 98.2 F Pulse Rate 83 66 71 Respiratory 16 16 16 Rate Blood Pressure 133/74 119/66 139/74 O2 Sat by Pulse 94 L 98 98 Oximetry 10/19/22 00:10 Temperature 98.2 F Pulse Rate 64 Respiratory 16 Rate Blood Pressure 138/74 O2 Sat by Pulse Oximetry Medical Decision Making - Medical Decision Making Patient is 77-year-old woman brought to have evaluation of altered mental status. On arrival patient is febrile and auscultation does reveal apparent pneumonia. This is confirmed with chest x-ray. Given the altered mental status, computed tomography scan of the brain is obtained which does not reveal any acute lesion. Labs do reveal anemia and patient does have heme positive stool. Discussed with admitting team and they I do not have GI coverage this week. Therefore patient will require transfer. Discussed with patient's son and he is amenable to [facility]. Discussed with at [facility] who will accept transfer is a do have GI coverage. Patient to receive PRBC before transfer. - Lab Data Result diagrams: 10/18/22 20:12 10/18/22 20:12 Lab Results 10/18/22 10/18/22 10/18/22 Range/Units 20:12 20:12 20:12 WBC 23.4 H (3.8-10.6) k/uL RBC 1.72 L (3.80-5.40) m/uL Hgb 5.2 L* (11.4-16.0) gm/dL Hct 16.6 L* (34.0-46.0) % MCV 96.5 (80.0-100.0) fL MCH 30.3 (25.0-35.0) pg MCHC 31.4 (31.0-37.0) g/dL RDW 15.9 H (11.5-15.5) % Plt Count 349 (150-450) k/uL MPV 7.9 Neutrophils % 91 % Lymphocytes % 5 % Monocytes % 3 % Eosinophils % 0 % Basophils % 0 % Neutrophils # 21.3 H (1.3-7.7) k/uL Lymphocytes # 1.1 (1.0-4.8) k/uL Monocytes # 0.7 (0-1.0) k/uL Eosinophils # 0.0 (0-0.7) k/uL Basophils # 0.1 (0-0.2) k/uL Hypochromasia Marked PT 11.9 (9.0-12.0) sec INR 1.2 H (<1.2) APTT 23.5 (22.0-30.0) sec Sodium 143 (137-145) mmol/L Potassium 3.3 L (3.5-5.1) mmol/L Chloride 117 H (98-107) mmol/L Carbon Dioxide 16 L (22-30) mmol/L Anion Gap 10 mmol/L BUN 37 H (7-17) mg/dL Creatinine 1.18 H (0.52-1.04) mg/dL Est GFR (CKD-EPI)AfAm 52 (>60 ml/min/1.73 sqM) Est GFR (CKD-EPI)NonAf 45 (>60 ml/min/1.73 sqM) Glucose 119 H (74-99) mg/dL Plasma Lactic Acid Archie (0.7-2.0) mmol/L Calcium 7.9 L (8.4-10.2) mg/dL Total Bilirubin 1.2 (0.2-1.3) mg/dL AST 29 (14-36) U/L ALT 25 (4-34) U/L Alkaline Phosphatase 81 (38-126) U/L Total Protein 4.7 L (6.3-8.2) g/dL Albumin 2.2 L (3.5-5.0) g/dL Urine Color Urine Appearance (Clear) Urine pH (5.0-8.0) Ur Specific [place] (1.001-1.035) Urine Protein (Negative) Urine Glucose (UA) (Negative) Urine Ketones (Negative) Urine Blood (Negative) Urine Nitrite (Negative) Urine Bilirubin (Negative) Urine Urobilinogen (<2.0) mg/dL Ur Leukocyte Esterase (Negative) Urine RBC (0-5) /hpf Urine WBC (0-5) /hpf Urine WBC Clumps (None) /hpf Ur Squamous Epith Cells (0-4) /hpf Urine Bacteria (None) /hpf Urine Mucus (None) /hpf Coronavirus (PCR) (Not Detectd) Influenza Type A RNA (Not Detectd) Influenza Type B (PCR) (Not Detectd) Blood Type Blood Type Recheck Bld Type Recheck Status Antibody Screen Crossmatch Spec Expiration Date 10/18/22 10/18/22 10/18/22 Range/Units 20:12 20:22 20:23 WBC (3.8-10.6) k/uL RBC (3.80-5.40) m/uL Hgb (11.4-16.0) gm/dL Hct (34.0-46.0) % MCV (80.0-100.0) fL MCH (25.0-35.0) pg MCHC (31.0-37.0) g/dL RDW (11.5-15.5) % Plt Count (150-450) k/uL MPV Neutrophils % % Lymphocytes % % Monocytes % % Eosinophils % % Basophils % % Neutrophils # (1.3-7.7) k/uL Lymphocytes # (1.0-4.8) k/uL Monocytes # (0-1.0) k/uL Eosinophils # (0-0.7) k/uL Basophils # (0-0.2) k/uL Hypochromasia PT (9.0-12.0) sec INR (<1.2) APTT (22.0-30.0) sec Sodium (137-145) mmol/L Potassium (3.5-5.1) mmol/L Chloride (98-107) mmol/L Carbon Dioxide (22-30) mmol/L Anion Gap mmol/L BUN (7-17) mg/dL Creatinine (0.52-1.04) mg/dL Est GFR (CKD-EPI)AfAm (>60 ml/min/1.73 sqM) Est GFR (CKD-EPI)NonAf (>60 ml/min/1.73 sqM) Glucose (74-99) mg/dL Plasma Lactic Acid Archie 1.5 (0.7-2.0) mmol/L Calcium (8.4-10.2) mg/dL Total Bilirubin (0.2-1.3) mg/dL AST (14-36) U/L ALT (4-34) U/L Alkaline Phosphatase (38-126) U/L Total Protein (6.3-8.2) g/dL Albumin (3.5-5.0) g/dL Urine Color Yellow Urine Appearance Cloudy H (Clear) Urine pH 5.5 (5.0-8.0) Ur Specific [place] 1.018 (1.001-1.035) Urine Protein 1+ H (Negative) Urine Glucose (UA) Negative (Negative) Urine Ketones Negative (Negative) Urine Blood Negative (Negative) Urine Nitrite Positive H (Negative) Urine Bilirubin Negative (Negative) Urine Urobilinogen 2.0 (<2.0) mg/dL Ur Leukocyte Esterase Large H (Negative) Urine RBC 1 (0-5) /hpf Urine WBC 47 H (0-5) /hpf Urine WBC Clumps Rare H (None) /hpf Ur Squamous Epith Cells <1 (0-4) /hpf Urine Bacteria Many H (None) /hpf Urine Mucus Rare H (None) /hpf Coronavirus (PCR) (Not Detectd) Influenza Type A RNA Not Detected (Not Detectd) Influenza Type B (PCR) Not Detected (Not Detectd) Blood Type Blood Type Recheck Bld Type Recheck Status Antibody Screen Crossmatch Spec Expiration Date 10/18/22 10/18/22 Range/Units 21:39 21:45 WBC (3.8-10.6) k/uL RBC (3.80-5.40) m/uL Hgb (11.4-16.0) gm/dL Hct (34.0-46.0) % MCV (80.0-100.0) fL MCH (25.0-35.0) pg MCHC (31.0-37.0) g/dL RDW (11.5-15.5) % Plt Count (150-450) k/uL MPV Neutrophils % % Lymphocytes % % Monocytes % % Eosinophils % % Basophils % % Neutrophils # (1.3-7.7) k/uL Lymphocytes # (1.0-4.8) k/uL Monocytes # (0-1.0) k/uL Eosinophils # (0-0.7) k/uL Basophils # (0-0.2) k/uL Hypochromasia PT (9.0-12.0) sec INR (<1.2) APTT (22.0-30.0) sec Sodium (137-145) mmol/L Potassium (3.5-5.1) mmol/L Chloride (98-107) mmol/L Carbon Dioxide (22-30) mmol/L Anion Gap mmol/L BUN (7-17) mg/dL Creatinine (0.52-1.04) mg/dL Est GFR (CKD-EPI)AfAm (>60 ml/min/1.73 sqM) Est GFR (CKD-EPI)NonAf (>60 ml/min/1.73 sqM) Glucose (74-99) mg/dL Plasma Lactic Acid Archie (0.7-2.0) mmol/L Calcium (8.4-10.2) mg/dL Total Bilirubin (0.2-1.3) mg/dL AST (14-36) U/L ALT (4-34) U/L Alkaline Phosphatase (38-126) U/L Total Protein (6.3-8.2) g/dL Albumin (3.5-5.0) g/dL Urine Color Urine Appearance (Clear) Urine pH (5.0-8.0) Ur Specific [place] (1.001-1.035) Urine Protein (Negative) Urine Glucose (UA) (Negative) Urine Ketones (Negative) Urine Blood (Negative) Urine Nitrite (Negative) Urine Bilirubin (Negative) Urine Urobilinogen (<2.0) mg/dL Ur Leukocyte Esterase (Negative) Urine RBC (0-5) /hpf Urine WBC (0-5) /hpf Urine WBC Clumps (None) /hpf Ur Squamous Epith Cells (0-4) /hpf Urine Bacteria (None) /hpf Urine Mucus (None) /hpf Coronavirus (PCR) Not Detected (Not Detectd) Influenza Type A RNA (Not Detectd) Influenza Type B (PCR) (Not Detectd) Blood Type A Negative Blood Type Recheck A Neg Bld Type Recheck Status No Antibody Screen NEGATIVE Crossmatch See Detail Spec Expiration Date 10/21/20222344 Critical Care Time Critical Care Time: Yes (40 minutes) Disposition Clinical Impression: Delirium due to general medical condition, GI bleed, Pneumonia, Anemia Disposition: OTHER INSTITUTION NOT DEFINED Condition: Serious Is patient prescribed a controlled substance at d/c from ED?: No Referrals: Jelani Grajeda MD [Primary Care Provider] - 1-2 days - Out of Hospital Transfer - Req. Specs Out of Hospital Transfer - Requested Specifics: Other Emergency Center
[2022-10-19 00:05] VITALS: TEMP 98.2
[2022-10-19 00:12] VITALS: BP 138/74; PULSE 64
[2022-10-19] MEDS ORDERED: AZITHROMYCIN 500 MG TAB PO SCH (09:00)
== END 2022-10-19 00:18 | disposition other institution (70) ==
LOC: EC 19:41 → 4SSUR 21:26 → UNDOADMIN 21:26 → EC 10-19 00:18
DX: F05 Delirium due to known physiological condition (principal); K92.2 Gastrointestinal hemorrhage, unspecified; J18.9 Pneumonia, unspecified organism; D64.9 Anemia, unspecified; I63.532 Cerebral infarction due to unspecified occlusion or stenosis of left posterior cerebral artery; I10 Essential (primary) hypertension; F41.9 Anxiety disorder, unspecified; F32.A Depression, unspecified; Z88.3 Allergy status to other anti-infective agents; Z77.120 Contact with and (suspected) exposure to mold (toxic); Z88.5 Allergy status to narcotic agent; Z91.041 Radiographic dye allergy status; Z88.8 Allergy status to other drugs, medicaments and biological substances; Z20.822 Contact with and (suspected) exposure to COVID-19; Z90.49 Acquired absence of other specified parts of digestive tract
CPT/HCPCS: 99291; 96365; 96366; 96375; 96361; 36430; 36415; 93005; 86900; 86901; 80053; 83605; 85025; 85610; 85730; 86850; 86920; 81001; 87040; 87502; 87635; 71045; 70450; P9016; J2060; J0456; J0696